=== PATIENT | male | born 1970 | race Two or more races ===

== ENCOUNTER 2020-09-15 15:15 | Inpatient (IN) | payer OTHER, MEDICARE, MEDICAID, SELFPAY ==
[2020-09-15] VITALS (19 sets, daily range): BP systolic 135–236; BP diastolic 105–172; PULSE 87–116; RESP 12–18; TEMP 36.6–36.9; O2SAT 95–97; BMI 27.1; BMI 26.6
--- NOTE | ~2020-09-15 | CT_ITS ---
EXAMINATION: CT HEAD WITHOUT CONTRAST (STROKE PROTOCOL) CLINICAL INFORMATION: Stroke protocol. Slurred speech. Left facial droop. COMPARISON: None TECHNIQUE: Contiguous axial imaging was performed from the skull base to vertex without intravenous administration of contrast. This CT examination was performed using dose optimization techniques as appropriate, variously including the following: *Automated exposure control *Adjustment of mA and/or kV according to patient size (this includes techniques or standardized protocols for targeted exams where dose is matched to indication/reason for exam; i.e. extremities or head) *Use of iterative reconstruction technique DLP: 668 mGy-cm FINDINGS: There is no evidence of an extra-axial collection. There is no evidence of intra-axial or extra-axial hemorrhage. There is a right occipital bone craniotomy. There is surgical defect from a reta hole in the right frontal bone. There are old infarcts versus areas of encephalomalacia seen in the bilateral cerebellum, right greater than left. There is extensive periventricular white matter disease. There are old left thalamic and basal ganglia lacunar infarcts. These findings are unchanged from February 2019. No mass, mass effect or acute infarct is seen. No skull fracture is seen. Visualized paranasal sinuses, mastoid air cells and middle ears are clear. CT/CT head for stroke IMPRESSION: No acute findings. Postoperative change to the right occipital bone, encephalomalacia or infarct of the bilateral cerebellum, right greater than left, old left basal ganglia and thalamic lacunar infarcts and extensive periventricular white matter disease similar to February 2019. This critical result was discussed with Dr. Norris at 1549 hours on 09/15/2020. It was ascertained that the content and urgency of the report was understood at the time of direct communication.
--- NOTE | ~2020-09-15 | CT_ITS ---
EXAMINATION: CT ANGIOGRAM NECK CLINICAL INFORMATION: Slurred speech. Left facial droop. COMPARISON: CT head 09/15/2020. MRI brain 03/11/2019. TECHNIQUE: The degree of stenosis determined by NASCET criteria. This CT examination was performed using dose optimization techniques as appropriate, variously including the following: *Automated exposure control *Adjustment of mA and/or kV according to patient size (this includes techniques or standardized protocols for targeted exams where dose is matched to indication/reason for exam; i.e. extremities or head) *Use of iterative reconstruction technique DLP: 1498 mGy-cm FINDINGS: Delayed contrast-enhanced CT the head: Right inferior cerebellar encephalomalacia and adjacent suboccipital craniotomy are noted. Encephalomalacia of the left inferior cerebellar hemisphere is visualized. No intracranial hemorrhage, tumors or acute appearing infarcts are visualized. Normal intraluminal opacification is noted in the major intracranial dural sinuses no abnormal enhancement the brain is noted. The orbits and globes are normal in appearance. A right frontal reta hole is visualized. Focal hypodensity is present in the left external capsule may represent chronic ischemic changes. Moderate subcortical and periventricular white matter patchy hypodensities are visualized. CT angiography neck: Conventional branching anatomy of the great vessels in relation to the transverse aorta is noted. Mild scattered nonocclusive calcific atherosclerotic plaques are present in the transverse aorta. The carotid bulbs are patent. The left vertebral artery is dominant. No cervical vertebral or carotid artery system occlusions or dissections are visualized. CT angiography head: Nonocclusive segmental calcific atherosclerosis is present in the cavernous portions of the internal carotid arteries. The A1 segment of the left anterior cerebral artery is absent. A prominent anterior communicating artery is noted in association with a prominent A1 segment of the right anterior cerebral artery. origin of the left posterior cerebral artery is visualized. No intracranial occlusions, stenoses or aneurysms are noted. Visualized lung apices are clear. The thyroid is normal in appearance. No cervical lymphadenopathy identified. CT/CT angio head neck IMPRESSION: 1. No acute abnormalities identified. 2. Negative CT angiography of the head and neck. Patent carotid bulbs. No large vessel intracranial occlusions. 3. Chronic encephalomalacia of the inferior right cerebellar hemisphere status post right suboccipital craniotomy. 4. Chronic encephalomalacia of the left inferior cerebellar hemisphere. 5. Chronic small vessel ischemic changes.
--- NOTE | ~2020-09-15 | XR_ITS ---
EXAMINATION: XR CHEST CLINICAL INFORMATION: Stroke COMPARISON: 03/11/2019 TECHNIQUE: Frontal view of the chest was obtained. FINDINGS: Wires overlie the chest. No significant abnormality is noted involving the heart, lungs, mediastinum, bony thorax or soft tissues. XR/XR chest 1V IMPRESSION: No acute cardiac pulmonary process.
--- NOTE | 2020-09-15 15:24 | ECG_ITS ---
Test Reason : STROKE Blood Pressure : / mmHG Vent. Rate : 105 BPM Atrial Rate : 105 BPM P-R Int : 168 ms QRS Dur : 082 ms QT Int : 336 ms P-R-T Axes : 036 -21 -02 degrees QTc Int : 444 ms Sinus tachycardia Voltage criteria for left ventricular hypertrophy Nonspecific ST and T wave abnormality Abnormal ECG When compared with ECG of 11-MAR-2019 10:06, No significant change was found Referred By: Abbie Norris Electronically Signed By:MARGARITA MCCONNELL MD
--- NOTE | 2020-09-15 15:28 | ED_ITS ---
HPI - Neuro Symptoms/Deficit General Chief Complaint: Neuro Symptoms/Deficit Stated Complaint: stroke? Time Seen by Provider: 09/15/20 15:24 Source: patient and family (Spouse) Mode of arrival: ambulatory Limitations: no limitations History of Present Illness HPI Narrative: 50-year-old male with history of hypertension, CVA, globose anti coagulant disorder, hypertensive emergency, cardiac myopathy. Patient 20 minutes ago started to have slurred speech and left facial droop, otherwise no other symptoms, patient also felt dizzy, because patient's history was significant for CVA patient decided to come to the hospital, patient reportedly has is on blood thinner. Patient is known to have history of high blood pressure patient is taking lisinopril for high blood pressure (patient stated that he is not compliant with his medication and he did not take his medicine for the past few days). Patient noted to be very hypertensive when he came to the hospital. Related Data Previous Rx's Medication Instructions Recorded aspirin 81 mg tablet,delayed 81 mg PO DAILY 90 Days #90 tab 05/16/20 release Allergies Allergy/AdvReac Type Severity Reaction Status Date / Time Shellfish Allergy Mild HIVES Uncoded 02/02/20 14:57 seafood Allergy Unknown hives Uncoded 07/20/19 00:00 Review of Systems Review of Systems: All other systems are reviewed and are negative Constitutional: Reports as per HPI and Reports no additional constitutional complaints Eyes: Reports as per HPI and Reports no additional eye complaints Reports system reviewed and no additional complaints, except as documented Cardiovascular: Reports as per HPI and Reports no additional cardiovascular complaints Respiratory: Reports as per HPI and Reports no additional respiratory complaints Gastrointestinal: Reports as per HPI and Reports no additional gastrointestinal complaints Genitourinary: Reports no additional female genitourinary complaints Musculoskeletal: Reports no additional musculoskeletal complaints Skin/Breast: Reports system reviewed and no additional complaints, except as docu Psychiatric: Reports no additional psychiatric complaints Endocrine: Reports no additional endocrine complaints Hematologic/Lymphatic: Reports no additional hematologic/lymphatic complaints Allergic/Immunologic: Reports no additional allergic/immunologic complaints Reports system reviewed and no additional complaints, except as documented and Reports Abnormal speech present [facility] Past Medical History Medical History Anxiety and depression Cardiomyopathy GERD (gastroesophageal reflux disease) History of CVA (cerebrovascular accident) Hypercholesterolemia Hypertension Insomnia Lupus anticoagulant positive Right renal stone Vitamin D deficiency Social History Social History Currently Displaying Signs/Symptoms of Drug Intoxication Withdrawal: No Advance Directives: No Advance Directives Information Provided: Yes Do you have thoughts of harming others: None Do you have a plan to hurt others: No Plan Physical Exam Vital Signs: Vital Signs: Last Vital Signs Temp 97.2 F 09/16/20 01:05 Pulse 80 09/16/20 06:01 Resp 14 09/16/20 06:01 BP 122/93 H 09/16/20 06:01 Pulse Ox 94 09/16/20 06:01 Body Mass Index 26.6 Vital signs have been reviewed as appeared to be correct. Blood pressure elevated. Heart rate normal. Respiration rate normal. Temperature normal. Oxygen saturation normal. Appearance: Alert. Oriented X3. No acute distress. Head: Normal external exam. Normocephalic. Atraumatic. No [place] signs noted. No raccoon eyes noted Eyes: PERRLA. EOMI. Conjunctiva and sclera normal. Eyelids normal. ENT: TM's Normal. Pharynx normal. Uvula midline. Moist mucous membranes. No trismus noted. No drooling noted. No muffled voice noted. Neck: Normal inspection. Neck supple. FROM. No adenopathy. Thyroid Normal. No meningeal signs. No neck mass noted. CVS: Normal heart rate and rhythm. Heart sound normal. No murmurs noted. Pulses normal throughout. Respiratory: No respiratory distress. Painless inspiration. Breath sounds normal. No wheezes/rales/rhonchi noted. Chest nontender. No accessory muscle usage noted or decreased air movement noted. Abdomen: Soft and nontender. Bowel sounds normal in all 4 quadrants. No distention noted. No organomegaly noted. No visible injury noted. Back: No CVA tenderness. Full range of motion noted. Skin: Skin warm and dry. Normal skin color. Normal skin turgor. No rashes/lesions/lacerations noted. Extremities: No lower extremity edema. Extremities exhibit normal range of motion. Extremities nontender. Neuro: Oriented X 3. Please see NIH stroke score. Course Course Course Narrative: Assessment and plan. 50-year-old male came in with left facial droop/slurred speech initially patient had NIH stroke score of 2, initially also noted to have very high blood pressure, patient was given labetalol IV blood pressure is gradually and slowly improving, patient's symptoms also is improving slowly, patient had a CT/CT angio of the head and neck which is unremarkable, case discussed with Dr. Braxton from Neurology recommended to more blood pressure management, keep on antiplatelets, admit for serial neuro exam. Patient is not candidate for tPA for severe uncontrolled hypertension, spontaneous improvement of patient's symptoms, and low NIH stroke score. Reevaluation(s) Reevaluation #1: Patient was re-evaluated, slurred speech is improving, left facial droop is improving, blood pressure is gradually and slowly improving, case discussed with Dr. monk conservation coordinator, will give 1 dose of lisinopril 20 mg p.o. and slowly monitoring his blood pressure. Recommended against giving the patient an IV antihypertensive drip. MDM - Neuro Symptoms/Deficit Lab Data Result diagrams: 09/16/20 05:10 09/16/20 05:10 Labs: Lab Results 09/15/20 09/15/20 09/15/20 Range/Units 15:26 15:27 16:00 WBC 8.7 (4.8-10.8) X10*3/uL RBC 5.68 (4.60-5.80) X10*6/uL Hgb 17.1 (14.0-18.0) g/dl Hct 49.7 (42-52) % MCV 87.5 (80-98) fL MCH 30.1 (27.0-33.0) pg MCHC 34.4 (31.0-36.0) g/dl RDW 12.2 (11.0-16.0) % Plt Count 329 (160-400) X10*3/uL MPV 9.3 L (9.4-12.4) fL Immature Gran % (Auto) 0.3 (0.0-0.4) % Neut % (Auto) 64.5 (45-73) % Lymph % (Auto) 24.0 (20-40) % [place] % (Auto) 8.3 (2-11) % Eos % (Auto) 2.3 (0-4) % Baso % (Auto) 0.6 (0-2) % Lymph # (Auto) 2.1 (1.2-4.9) X10*3/uL [place] # (Auto) 0.7 (0.1-1.2) X10*3/uL Eos # (Auto) 0.2 (0.0-0.4) X10*3/uL Baso # (Auto) 0.1 (0.0-0.2) X10*3/uL Abs Immat Gran (auto) 0.03 (0.00-0.03) X10*3/uL Absolute Neuts (auto) 5.6 (2.0-8.3) X10*3/uL Absolute Nucleated RBC 0.000 (0.0-0.012) X10*3/uL Nucleated RBC % (auto) 0.0 (0.0-0.2) /100WBC PT (10.8-13.0) SEC Whole Blood PT 13.6 H (11.1-13.5) sec INR (0.9-1.1) Whole Blood INR 1.1 (0.9-1.1) APTT (24.1-38.0) SEC Sodium (135-145) mmol/L Potassium (3.3-5.1) mmol/L Chloride (96-108) mmol/L Carbon Dioxide (22-29) mmol/L Anion Gap (12-20) BUN (9-16) mg/dL Creatinine (0.5-1.4) mg/dL Estim Creat Clear Calc Estimated GFR POC Glucose 100 (60-115) mg/dL Random Glucose (60-115) mg/dL Calcium (8.4-10.2) mg/dL Total Creatine Kinase (38-174) U/L Troponin I High Sens (<3.5-35.0) ng/L 09/15/20 09/15/20 09/15/20 Range/Units 16:00 16:00 16:00 WBC (4.8-10.8) X10*3/uL RBC (4.60-5.80) X10*6/uL Hgb (14.0-18.0) g/dl Hct (42-52) % MCV (80-98) fL MCH (27.0-33.0) pg MCHC (31.0-36.0) g/dl RDW (11.0-16.0) % Plt Count (160-400) X10*3/uL MPV (9.4-12.4) fL Immature Gran % (Auto) (0.0-0.4) % Neut % (Auto) (45-73) % Lymph % (Auto) (20-40) % [place] % (Auto) (2-11) % Eos % (Auto) (0-4) % Baso % (Auto) (0-2) % Lymph # (Auto) (1.2-4.9) X10*3/uL [place] # (Auto) (0.1-1.2) X10*3/uL Eos # (Auto) (0.0-0.4) X10*3/uL Baso # (Auto) (0.0-0.2) X10*3/uL Abs Immat Gran (auto) (0.00-0.03) X10*3/uL Absolute Neuts (auto) (2.0-8.3) X10*3/uL Absolute Nucleated RBC (0.0-0.012) X10*3/uL Nucleated RBC % (auto) (0.0-0.2) /100WBC PT 12.1 (10.8-13.0) SEC Whole Blood PT (11.1-13.5) sec INR 1.0 (0.9-1.1) Whole Blood INR (0.9-1.1) APTT 33.7 (24.1-38.0) SEC Sodium 143 (135-145) mmol/L Potassium 3.6 (3.3-5.1) mmol/L Chloride 102 (96-108) mmol/L Carbon Dioxide 26 (22-29) mmol/L Anion Gap 19 (12-20) BUN 22 H (9-16) mg/dL Creatinine 1.56 H (0.5-1.4) mg/dL Estim Creat Clear Calc 48.7 Estimated GFR 47 POC Glucose (60-115) mg/dL Random Glucose 97 (60-115) mg/dL Calcium 9.4 (8.4-10.2) mg/dL Total Creatine Kinase 157 (38-174) U/L Troponin I High Sens 13.2 (<3.5-35.0) ng/L Imaging Data Head CT: Radiologist's impression: No acute findings. Postoperative change to the right occipital bone, encephalomalacia or infarct of the bilateral cerebellum, right greater than left, old left basal ganglia and thalamic lacunar infarcts and extensive periventricular white matter disease similar to February 2019. CT angio head and neck: Radiologist's impression: 1. No acute abnormalities identified. 2. Negative CT angiography of the head and neck. Patent carotid bulbs. No large vessel intracranial occlusions. 3. Chronic encephalomalacia of the inferior right cerebellar hemisphere status post right suboccipital craniotomy. 4. Chronic encephalomalacia of the left inferior cerebellar hemisphere. 5. Chronic small vessel ischemic changes. ECG Data Interpretation: Sinus tachycardia at 1 1 5 beats per minutes, LVH, left axis deviation, normal intervals, nonspecific ST-T changes diffusely. NIH Stroke Scale Level of Consciousness: Alert Level of Consciousness Questions: Answers both questions correctly Level of Consciousness Commands: Performs both tasks correctly Best Gaze: Normal Visual: No visual loss Facial Palsy: Minor paralyis Motor Arm (Right): No drift Motor Arm (Left): No drift Motor Leg (Right): No drift Motor Leg (Left): No drift Limb Ataxia: Absent Sensory: Normal Best Language: Mild to moderate aphasia Dysarthia: Normal Extinction and Inattention: No abnormality Score: 2 Critical Care Time Critical Care Time Total Critical Care Time: 60 Attestation: I spent 60 minutes providing critical care service to the patient, this including time spent at the bedside to evaluate the patient, reassess the patient, monitoring vital signs, review labs, and radiographic studies, counseling the patient/family, discussing the case with consultants, disposition the patient. Discharge Plan Discharge Clinical Impression: Hypertension, Hypertensive emergency Stroke Qualifiers: CVA mechanism: unspecified Qualified Code(s): I63.9 - Cerebral infarction, unspecified Patient Disposition: Admitted As Inpatient Interventions: Admission Worksheet (ED) Last Done: 09/15/20 20:22 Discharge Date/Time: 09/15/20 20:10
[2020-09-15 15:31] LABS: Glucose, Whole Blood 100 mg/dL (60-115)
[2020-09-15 15:31] LABS: Prothrombin Time Whole Bld POC 13.6 sec (11.1-13.5); ~PT, ~INR - Anti Coag Clinic 1.1 (0.9-1.1)
[2020-09-15] MEDS: iohexoL 350 MG/ML 100 ML INFUS..BTL IV (15:58)
[2020-09-15] MEDS: Labetalol HCL 100 MG/20 ML VIAL 20 MG IVPUSH (15:59)
[2020-09-15 16:03] LABS: MANUAL DIFF FLAG NO
[2020-09-15 16:07] LABS: Basophils Absolute Auto 0.1 X10*3/uL (0.0-0.2); Basophils Percent Auto 0.6 % (0-2); Eosinophils Absolute Auto 0.2 X10*3/uL (0.0-0.4); Eosinophils Percent Auto 2.3 % (0-4); Hematocrit 49.7 % (42-52); Hemoglobin 17.1 g/dl (14.0-18.0); Imm Gran Abs Auto 0.03 X10*3/uL (0.00-0.03); Imm Gran Pct Auto 0.3 % (0.0-0.4); Lymphocytes Absolute Auto 2.1 X10*3/uL (1.2-4.9); Mean Corpuscular HGB Conc 34.4 g/dl (31.0-36.0); Mean Corpuscular Hemoglobin 30.1 pg (27.0-33.0); Mean Corpuscular Volume 87.5 fL (80-98); Mean Platelet Volume 9.3 fL (9.4-12.4); Monocytes Absolute Auto 0.7 X10*3/uL (0.1-1.2); Monocytes Percent Auto 8.3 % (2-11); Neutrophils Absolute Auto 5.6 X10*3/uL (2.0-8.3); Neutrophils Percent Auto 64.5 % (45-73); Platelet Count 329 X10*3/uL (160-400); Red Blood Count 5.68 X10*6/uL (4.60-5.80); Red Cell Distribution Width 12.2 % (11.0-16.0); White Blood Count 8.7 X10*3/uL (4.8-10.8)
--- NOTE | 2020-09-15 16:08 | PC.NURSE ---
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 PT REPORTS HX MULTIPLE CVA'S, STS HAS BEEN NON-COMPLIANT W/ MEDICATIONS. DURING PRIMARY EVAL PT SPEECH CLEAR, PT REPORTS HE FEELS HIS SX IMPROVING QUICKLY. MINOR L SIDED FACIAL DROOP NOTED, NO OTHER NEURO DEFICITS. PT HYPERTENSIVE, 240'S/150'S, STS HAS NOT BEEN TAKING HTN MEDS. NSR/ST ON TELE. IV ESTABLISHED, LABS DRAWN, PT MEDICATED FOR BP PER EMAR. AFTER RETURNING FROM CT PT REPORTS FEELING MARKEDLY BETTER. DR JACOB AT BEDSIDE DISCUSSING PLAN OF CARE WITH PATIENT AND SPOUSE, PT AWARE/AGREEABLE TO PLAN OF CARE.
[2020-09-15 16:18] LABS: Prothrombin Time 12.1 SEC (10.8-13.0)
[2020-09-15 16:20] LABS: Partial Thromboplastin Time 33.7 SEC (24.1-38.0)
[2020-09-15 16:37] LABS: Anion Gap 19 (12-20); Blood Urea Nitrogen 22 mg/dL (9-16); Calcium 9.4 mg/dL (8.4-10.2); Carbon Dioxide 26 mmol/L (22-29); Chloride 102 mmol/L (96-108); Creatinine Clr Calc Pharmacy 48.7; Estimated Glomerular Filt Rate 47; Glucose Random 97 mg/dL (60-115); Potassium 3.6 mmol/L (3.3-5.1); Sodium 143 mmol/L (135-145)
[2020-09-15 16:44] LABS: Troponin-I High Sensitivity 13.2 ng/L (<3.5-35.0)
[2020-09-15] MEDS: lisinopriL 20 MG TABLET PO (16:54)
--- NOTE | 2020-09-15 18:17 | PM.EVENT ---
Event Note Date of Service: 09/16/20 Event Note: Dr. Norris called me from the ED about Mr. Donaldson who presented with hypertensive crisis with stroke-like symptoms. This is a remote note. The patient is a 50-year-old male with history of hypertension w prior episode of hypertensive emergency, CVA, Lupus anticoagulant disorder, cardiomyopathy. At home he is supposed to be on Lisinopril 40 mg daily, along with ASA and Plavix. But he hasn?t taken his meds for the past few days. 20 minutes prior to arrival in the ED this afternoon, he started to have slurred speech, left facial droop, and dizziness. Transported by car to the ED. According to Dr. Norris, initial BP was about 260/160. Per [employer], BP was 236/172. HR 116. The patient was A&O, in NAD. Breathing easy, Sat 97% on room air. Neuro eval showed minor left facial droop, and minor slurred speech, both of which the patient said were improved. No peripheral motor deficits. He was given Labetolol 20mg IV and sent for CT, which showed encephalomalacia or infarct of the bilateral cerebellum, right greater than left, old left basal ganglia and thalamic lacunar infarcts, and extensive periventricular white matter disease, all similar to February 2019. Dr. Braxton was consulted, the patient was not a candidate for TPA (I agree). According to Dr. Norris, the patient?s symptoms are improving in the ED. CTA also negative. At 1642 when I was called, the patient?s BP was down to 193/135, with HR down to 88. I recommended giving the patient 20 mg Lisinopril immediately, and recommended against further intravenous antihypertensives at that time. LABS: BUN/creat are 22/1.5. Baseline may be about 1.3. IMPRESSION: 1. I?m guessing that the patient has at least moderately severe HTN at baseline. 2. Medication noncompliance. 3. Hypertensive crisis with neurologic symptoms. When this is a stroke, TIA, or hypertensive encephalopathy I cannot tell at this time. 4. VARGAS, presumably 2? hypertensive crisis. Could be somewhat hypovolemic (Hb is 17). For patients with a hypertensive emergency, the goal should be about a 20% reduction in mean arterial pressure during the first 60 minutes of therapy. That has been accomplished nicely, and the patient is already improved, per Dr. Norris?s report to me. His BP should be checked q30 min. I would give him an additional 20 mg Lisinopril, oral labetolol, or IV labetolol over the next hour or two, depending on how he does. I?m expecting that he will not need that much in the way of intravenous therapy, but we?ll see. I?ve written him for admission to the ICU for further monitoring and mx. ADDENDUM: Spoke with the patient?s nurse at 1835. He's still in the ED. Last BP is 160?s/125. The patient?s facial droop and slurred speech have completely resolved. Waiting for transfer to the ICU. Time: 60 min ([id number])
[2020-09-15 18:27] LABS: Stroke Lab Use COMPLETE
[2020-09-15 19:58] LABS: COVID-19 Test Negative (Negative)
[2020-09-15] MEDS: Metoprolol Tartrate 25 MG TABLET PO (21:17)
--- NOTE | 2020-09-15 23:37 | PC.NURSE ---
pt arrived from ed via stretcher with senior underwriter. pt is awake/polite. sensorium is intact. speech is clear and well articulated. facial expressions symmetrical. hand grasps equal firm. gagnon in a purposeful fashion with good rom and strength. pt states that he has had several cvas in the past the big one was in 2006 . pt experienced neurological deficit in 2006 and underwent emergent craniotomy for the release of intracranial pressure. pt underwent extensive physical rehab at [facility]. according to pt and pt has experienced several smaller cvas since then. pt states that he should be taking 4 medications for htn and blood thinner but has elected to not take prescribed medications. 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 pts is at bedside her name is chris she can be reached at [phone]. skin surfaces intact. resp effort is regular unlabored. lungs cta. heart s1s2 +s4. ecg displays sr. sbp 160-170 mmhg. dsp 110-120 mmhg. abdomen benign.
[2020-09-16] VITALS (19 sets, daily range): BP systolic 112–182; BP diastolic 72–115; PULSE 63–105; RESP 10–20; TEMP 36.2–37.1; O2SAT 94–100; BMI 27.4
--- NOTE | 2020-09-16 00:14 | PM.CCHP ---
History of Present Illness Date of Service: 09/15/20 Chief Complaint: Hypertensive emergency/stroke-like symptoms HPI: 50-year-old male with underlying history of multiple strokes, hypertension, hypercholesteremia, GERD, blood clots (unknown specifics0 anxiety and depression and medical noncompliance was not taking any of his medications for the past 8-9 months. Patient presented to the emergency room at 3:24 p.m. after developing symptoms 20 minutes prior to arrival consistent with slurred speech and left facial droop, reported dizziness, even though he is supposed to be on a blood thinner, it turns out he is not taking it. On arrival, patient was noted to have a blood pressure of 236/172 with otherwise normal vital signs. Neurological exam revealed an NIH of 2. Patient has been given IV labetalol with good improvement of the blood pressure as well as facial droop and slurred speech. Patient underwent a stroke survey with head CT which was negative for ischemic or hemorrhagic stroke. CT angiogram of the head and neck revealed no abnormalities. Patient was found not to be a candidate for tPA, was admitted to the ICU for monitoring and blood pressure control, neuro checks. Covid 19. They remain to be, the patient has no complaints, he admits to had been noncompliant with his medications not for a few days or weeks but rather approximately 8-9 months that he has not taking any of his medications, currently he is concerned about not being able to sleep, states that he gets anxious every now and then but he is not anxious at this point. Currently denies headache, double or blurry vision, trouble speaking or thinking, numbness of the upper, lower extremities or any type of weakness. ROS: Denies headache, no visual changes, lightheadedness or dizziness, no history of seizures; no history of eye or ear problems, no sore throat, cough or sputum production, denies shortness of breath, denies chest pain, palpitations, no coronary disease, pulmonary disease, no hemoptysis, denies any melena, hematochezia, liver or kidney problems, no dysuria, hematuria, no leg swelling. Denies depression, admits to intermittent anxiety and insomnia. She has no travel and has not been contact with anybody with COVID. All other review of systems negative. Past Medical History: As above Past Surgical History: Right suboccipital craniotomy Family history: Noncontributory Social History: Lives at home with his , does not use any assistive devices. Has a 10 pack-year history of tobacco consumption, quit about 20 years ago. Drinks social alcohol, denies drugs. He admits not being compliant with his medications for the past 8-9 months. CODE STATUS: Full code Allergies: Shellfish and seafood (hives, no known drug allergies Home Medications: Unknown; goes to [facility] pharmacy. PHYSICAL EXAM: VS: 160/126; 95; 16; 98 F; 96% RA ?General: Alert oriented x3 no acute distress. Speaking full sentences. Speech is well articulated, thought process is coherent. Following all commands. No facial drooping. No slurred speech. ?Skin: Intact, no lesions, edema, erythema, clubbing or cyanosis. No ulcers. ?HEENT: Head is normocephalic, atraumatic, pupils equal round reactive to light accommodation bilaterally. Extraocular movements appear intact. Buccal mucosa is moist, Neck is supple without lymphadenopathy. ?Cardiac: Clear S1-S2, no murmurs rubs or gallops. ?Pulmonary: Clear to auscultation, no wheezes, rales or rhonchi. ?Abdomen: Protuberant, positive bowel sounds in all 4 quadrants. Soft, nontender, no rebound or guarding. ?Musculoskeletal: Moving all 4 extremities upon request a major joints, there is no crepitus or tenderness. The strength is 5/5 bilaterally and throughout all 4 extremities. There is no leg edema , no calf tenderness , no leg asymmetry. Gait not assessed at this point. ?Neurologic: As above, cranial nerves 2-12 are grossly intact. No focal deficits noted. Vascular: 2+ pulses upper and lower extremities distally. SIGNIFICANT LABORATORY DATA: As above REVIEW OF IMAGES: HEAD CT IMPRESSION: No acute findings. Postoperative change to the right occipital bone, encephalomalacia or infarct of the bilateral cerebellum, right greater than left, old left basal ganglia and thalamic lacunar infarcts and extensive periventricular white matter disease similar to February 2019. This critical result was discussed with Dr. Norris at 1549 hours on 09/15/2020. It was ascertained that the content and urgency of the report was understood at the time of direct communication. CXR IMPRESSION: No acute cardiac pulmonary process. CT Angio head and neck IMPRESSION: 1. No acute abnormalities identified. 2. Negative CT angiography of the head and neck. Patent carotid bulbs. No large vessel intracranial occlusions. 3. Chronic encephalomalacia of the inferior right cerebellar hemisphere status post right suboccipital craniotomy. 4. Chronic encephalomalacia of the left inferior cerebellar hemisphere. 5. Chronic small vessel ischemic changes. EKG REVIEW: Sinus tachycardia ventricular rate 105 beats per minute. No ST elevations, no depressions. QTC 444. No significant change in comparison to EKG from February 2019. ASSESSMENT AND PLAN: 1. Hypertensive emergency 2. Resolve slurred speech and facial drooping due to 1? TIA 3. Medical noncompliance 4. Acute kidney injury 5. Anxiety 6. Insomnia 7. Hx of Strokes and Coagulopathy NOS Admit to ICU, monitor vital signs, I's and O's, blood pressure has already been reduced by 25%, will continue to monitor and administer p.o. medications, I will hold off on lisinopril given the increase in his creatinine and the acute kidney injury, slight amount of IV fluids will be given and will place him on beta-whit given that his heart rate at times is also elevated at about 110-120 beats per minute. Swallow test has been done the patient passed, will place him on a statin aspirin just in case. Neurological consult to follow tomorrow morning and will determine if an MRI is needed. Will find out the patient's medications and resume them as needed. In regards to his anxiety this does not appear to be an issue at this point, will give him melatonin for his insomnia. GI PROPHYLAXIS: no need DVT PROPHYLAXIS: Heparin SubQ q 8h Critical care time used for critical evaluation of this patient, diagnosis, treatment and coordination of care, review her records and documentation TOTAL CRITICAL CARE TIME 90 MIN . Patient's care was discussed in detail with Dr. Choi. He is aware of all the above as well as the plan of care for this patient. [facility] Past Medical History Medical History Anxiety and depression Cardiomyopathy GERD (gastroesophageal reflux disease) History of CVA (cerebrovascular accident) Hypercholesterolemia Hypertension Insomnia Lupus anticoagulant positive Right renal stone Vitamin D deficiency Social History Social History Currently Displaying Signs/Symptoms of Drug Intoxication Withdrawal: No Advance Directives: No Advance Directives Information Provided: Yes Do you have thoughts of harming others: None Do you have a plan to hurt others: No Plan service: No Current occupational status: employed Meds Allergies Allergy/AdvReac Type Severity Reaction Status Date / Time Shellfish Allergy Mild HIVES Uncoded 02/02/20 14:57 seafood Allergy Unknown hives Uncoded 07/20/19 00:00 Active Medications: Current Medications Generic Name Dose Route Start Last Admin Trade Name Melvin PRN Reason Stop Dose Admin Lisinopril 5 mg 09/16/20 09:00 Lisinopril 5 Mg Tablet PO DAILY [facility] Protocol Melatonin 3 mg 09/15/20 22:45 09/15/20 23:03 Melatonin 3 Mg Tablet PO Not Given BEDTIME [facility] Metoprolol Tartrate 25 mg 09/15/20 21:00 09/15/20 21:17 Metoprolol Tartrate 25 Mg Tablet PO 25 mg Q12H [facility] Administration Protocol Home Medications Medication Instructions Recorded Confirmed Last Taken Type aspirin 81 mg PO DAILY 09/16/20 09/16/20 Unknown History atorvastatin 80 mg PO BEDTIME 09/16/20 09/16/20 Unknown History carvedilol 12.5 mg PO BID 09/16/20 09/16/20 Unknown History clopidogrel 75 mg PO DAILY 09/16/20 09/16/20 Unknown History donepezil 10 mg PO BEDTIME 09/16/20 09/16/20 Unknown History lisinopril 20 mg PO DAILY 09/16/20 09/16/20 Unknown History olanzapine 2.5 mg PO DAILY 09/16/20 09/16/20 Unknown History Physical Exam Vital Signs: Vital Signs: Last Vital Signs Temp 98 F 09/15/20 20:33 Pulse 72 09/16/20 00:11 Resp 14 09/16/20 00:11 BP 128/97 H 09/16/20 00:11 Pulse Ox 95 09/16/20 00:11 Body Mass Index 26.6 Results Labs CBC and Chem 7: 09/16/20 05:10 09/16/20 05:10 Labs: Laboratory Results - last 24 hr 09/15/20 09/15/20 09/15/20 15:26 15:27 16:00 MCV 87.5 MCH 30.1 MCHC 34.4 RDW 12.2 Plt Count 329 MPV 9.3 L Immature Gran % (Auto) 0.3 Neut % (Auto) 64.5 Lymph % (Auto) 24.0 Bacon % (Auto) 8.3 Eos % (Auto) 2.3 Baso % (Auto) 0.6 Lymph # (Auto) 2.1 Bacon # (Auto) 0.7 Eos # (Auto) 0.2 Baso # (Auto) 0.1 Abs Immat Gran (auto) 0.03 Absolute Neuts (auto) 5.6 Absolute Nucleated RBC 0.000 Nucleated RBC % (auto) 0.0 PT Whole Blood PT 13.6 H INR Whole Blood INR 1.1 APTT Anion Gap Estim Creat Clear Calc Estimated GFR POC Glucose 100 Random Glucose Calcium Total Creatine Kinase Troponin I High Sens COVID-19 (JASPREET) COVID-19 Clin Com 09/15/20 09/15/20 09/15/20 16:00 16:00 16:00 MCV MCH MCHC RDW Plt Count MPV Immature Gran % (Auto) Neut % (Auto) Lymph % (Auto) Bacon % (Auto) Eos % (Auto) Baso % (Auto) Lymph # (Auto) Bacon # (Auto) Eos # (Auto) Baso # (Auto) Abs Immat Gran (auto) Absolute Neuts (auto) Absolute Nucleated RBC Nucleated RBC % (auto) PT 12.1 Whole Blood PT INR 1.0 Whole Blood INR APTT 33.7 Anion Gap 19 Estim Creat Clear Calc 48.7 Estimated GFR 47 POC Glucose Random Glucose 97 Calcium 9.4 Total Creatine Kinase 157 Troponin I High Sens 13.2 COVID-19 (JASPREET) COVID-19 Clin Com 09/15/20 19:35 MCV MCH MCHC RDW Plt Count MPV Immature Gran % (Auto) Neut % (Auto) Lymph % (Auto) Bacon % (Auto) Eos % (Auto) Baso % (Auto) Lymph # (Auto) Bacon # (Auto) Eos # (Auto) Baso # (Auto) Abs Immat Gran (auto) Absolute Neuts (auto) Absolute Nucleated RBC Nucleated RBC % (auto) PT Whole Blood PT INR Whole Blood INR APTT Anion Gap Estim Creat Clear Calc Estimated GFR POC Glucose Random Glucose Calcium Total Creatine Kinase Troponin I High Sens COVID-19 (JASPREET) Negative COVID-19 Clin Com See Note Imaging Radiologist's Impressions: Impressions Head CT 09/15/20 15:24 IMPRESSION: No acute findings. Postoperative change to the right occipital bone, encephalomalacia or infarct of the bilateral cerebellum, right greater than left, old left basal ganglia and thalamic lacunar infarcts and extensive periventricular white matter disease similar to February 2019. This critical result was discussed with Dr. Norris at 1549 hours on 09/15/2020. It was ascertained that the content and urgency of the report was understood at the time of direct communication. Chest X-Ray 09/15/20 15:25 IMPRESSION: No acute cardiac pulmonary process. Head/Neck CTA 09/15/20 15:36
[2020-09-16] MEDS: 0.9 % Sodium Chloride 500 ML 100 ML IVCONT (01:33)
[2020-09-16] MEDS: Atorvastatin Calcium 80 MG TABLET PO ×2 (01:34→20:48)
[2020-09-16 05:35] LABS: MANUAL DIFF FLAG NO
--- NOTE | 2020-09-16 05:38 | PC.NURSE ---
pt exited bed to use urinal and knocked over rosie cotto on night stand. pt is awake/sensorium is intact. although, pt states he is having difficulty finding words. pt returned to bed. gait is steady. speech is clear and well articulated. facial expressions symmetrical. tongue midline. hand grasps equal and strong. gagnon purposefully with good rom. macey bloom summoned to bedside to conduct neuro evaluation d/t pts c/o of difficulty finding words. pt continues to be luccid and carry out conversation without delay or deficit being noted. second iv established right wrist. no focal deficts. after several minutes pt states that he feels better and is no longer having difficulty with finding words and talking. b/p 150/100. ecg displays sr. resp effort is regular unlabored. pt voided 500 ml of yellow urine. urine dinero sent. pt settled in and watching tv.
[2020-09-16 05:39] LABS: Basophils Absolute Auto 0.1 X10*3/uL (0.0-0.2); Basophils Percent Auto 0.6 % (0-2); Eosinophils Absolute Auto 0.3 X10*3/uL (0.0-0.4); Hematocrit 46.7 % (42-52); Hemoglobin 15.9 g/dl (14.0-18.0); Imm Gran Abs Auto 0.02 X10*3/uL (0.00-0.03); Imm Gran Pct Auto 0.2 % (0.0-0.4); Lymphocytes Absolute Auto 2.2 X10*3/uL (1.2-4.9); Lymphocytes Percent Auto 24.6 % (20-40); Mean Corpuscular Hemoglobin 29.9 pg (27.0-33.0); Mean Corpuscular Volume 87.8 fL (80-98); Mean Platelet Volume 9.3 fL (9.4-12.4); Monocytes Absolute Auto 0.7 X10*3/uL (0.1-1.2); Monocytes Percent Auto 8.2 % (2-11); Neutrophils Absolute Auto 5.7 X10*3/uL (2.0-8.3); Neutrophils Percent Auto 63.4 % (45-73); Platelet Count 323 X10*3/uL (160-400); Red Blood Count 5.32 X10*6/uL (4.60-5.80); Red Cell Distribution Width 12.4 % (11.0-16.0)
[2020-09-16] MEDS: Heparin Sodium,Porcine 5,000 UNIT/ML VIAL 5000 UNIT SUBCUT ×3 (05:52→20:48)
[2020-09-16 06:09] LABS: Amphetamine Screen Urine Not Detected (Not Detect); Barbiturates, Urine Not Detected (Not Detect); Benzodiazepines Screen Urine Not Detected (Not Detect); Cannabinoid Screen Urine Not Detected (Not Detect); Cocaine Screen Urine Not Detected (Not Detect); Opiate Screen Urine Not Detected (Not Detect); Phencyclidine Screen Urine Not Detected (Not Detect)
[2020-09-16 06:10] LABS: Alanine Aminotransferase 16 U/L (0-40); Albumin Level 4.1 g/dL (3.5-5.0); Alkaline Phosphatase 70 U/L (39-117); Anion Gap 14 (12-20); Aspartate Amino Transferase 14 U/L (5-37); Bilirubin Direct 0.3 mg/dL (0.0-0.5); Bilirubin Total 0.9 mg/dL (0.0-1.0); Blood Urea Nitrogen 23 mg/dL (9-16); Calcium 9.2 mg/dL (8.4-10.2); Carbon Dioxide 27 mmol/L (22-29); Chloride 102 mmol/L (96-108); Cholesterol 261 mg/dL; Estimated Glomerular Filt Rate 48; Glucose Random 110 mg/dL (60-115); HDL Cholesterol 45 mg/dL; LDL Cholesterol Calculated 184 mg/dl; Potassium 3.4 mmol/L (3.3-5.1); Sodium 140 mmol/L (135-145); Total Protein 7.2 g/dL (6.5-8.0); Triglycerides 163 mg/dL
--- NOTE | 2020-09-16 06:21 | P.PNCC_ITS ---
Subjective Subjective Date of Service: 09/16/20 Interval History: Patient was admitted last night to ICU due to hypertensive emergency. On arrival to the ER the patient's blood pressure was over 230 systolic, having left side facial droop and slurred speech, was treated with labetalol, stroke NIH score was 2, full stroke workup was done and CT head, CTA of head and neck were all negative. He was not a candidate for tPA. Neurology consult was done. The blood pressure had come down to less than 180 and his symptoms completely resolve. Overnight there was no events, the patient did admit to not having taken any of his medications for over 8 months. His laboratory was unremarkable with exception of creatinine of 1.5 which is unknown if it is his baseline. Small amount of IV fluids was given, SHAHANA-inhibitor was not given because of the creatinine. I did place him on low-dose beta-whit, start him on a statin, aspirin and placed a Neurology consult. Patient has underlying history of previous strokes, cardiomyopathy, hypertension, hypercholesteremia, GERD, anxiety, depression. He did ask me for medications to help him sleep, I suggested melatonin, he refused and asked for Ativan which I explained would not be given as this could cause mental status changes and we with unknown if this is from a ischemic, hemorrhagic stroke or the medication itself. Physical exam 122/93, 80, 14, 94% on room air. General: Alert oriented x3 no acute distress, no facial droop, speaking full sentences. He told the nurse he was having trouble speaking, I spoke to the patient in [place] in suddenly he started speaking back to me in Welsh perfectly well and without any pronunciation issues. Skin: Intact no lesions. No edema. Heart: Regular rate and rhythm no murmurs rubs gallops. Lungs: Clear to auscultation bilaterally Musculoskeletal: Full range of motion of 4 extremities, 5/5 strength bilaterally and throughout. Neurologic: Alert oriented x3, cranial nerves 2 through 12 grossly intact. Motor as above. Vascular: 2+ pulses upper lower extremities bilaterally and distally. No new images. Laboratories as below : remarkable for unchanged Cr 1.5 Assessment plan: 1. Hypertensive emergency resolved 2. Resolve slurred speech and facial drooping due to 1? TIA resolved 3. Medical noncompliance no meds 8 months 4. Acute on Chronic KD=======labs unchanged likely createnine 1.5 is his baseline 5. Anxiety========= no sx now 6. Insomnia======= melatonin refused 7. Hx of Strokes and Coagulopathy NOS Patient's blood pressure is now normal, no overnight issues. Patient is on aspirin, statin, Neurology consult was placed, they will decide if the patient requires an MRI, plus-minus echo and unlikely a ultrasound of the carotid since the CTA is negative. Gentle hydration. Patient will be transferred to the floor, case will be discussed with hospitalist [id number] am case was discussed with Dr. Pereira Case was discussed in detail with Dr. Choi. He is aware of all the above as well as the plan of care for this patient. Billing [id number] Physical Exam Vital Signs: Vital Signs: Last Vital Signs Temp 97.2 F 09/16/20 01:05 Pulse 80 09/16/20 06:01 Resp 14 09/16/20 06:01 BP 122/93 H 09/16/20 06:01 Pulse Ox 94 09/16/20 06:01 Body Mass Index 26.6 Objective Data Labs CBC & Chem 7: 09/16/20 05:10 09/16/20 05:10 Labs: Laboratory Results - last 24 hr 09/15/20 09/15/20 09/15/20 15:26 15:27 16:00 WBC 8.7 RBC 5.68 Hgb 17.1 Hct 49.7 MCV 87.5 MCH 30.1 MCHC 34.4 RDW 12.2 Plt Count 329 MPV 9.3 L Immature Gran % (Auto) 0.3 Neut % (Auto) 64.5 Lymph % (Auto) 24.0 [place] % (Auto) 8.3 Eos % (Auto) 2.3 Baso % (Auto) 0.6 Lymph # (Auto) 2.1 [place] # (Auto) 0.7 Eos # (Auto) 0.2 Baso # (Auto) 0.1 Abs Immat Gran (auto) 0.03 Absolute Neuts (auto) 5.6 Absolute Nucleated RBC 0.000 Nucleated RBC % (auto) 0.0 PT Whole Blood PT 13.6 H INR Whole Blood INR 1.1 APTT Sodium Potassium Chloride Carbon Dioxide Anion Gap BUN Creatinine Estim Creat Clear Calc Estimated GFR POC Glucose 100 Random Glucose Calcium Total Bilirubin Direct Bilirubin AST ALT Alkaline Phosphatase Total Creatine Kinase Troponin I High Sens Total Protein Albumin Triglycerides Cholesterol LDL Cholesterol, Calc HDL Cholesterol Urine Opiates Screen Ur Barbiturates Screen Ur Phencyclidine Scrn Ur Amphetamines Screen U Benzodiazepines Scrn Urine Cocaine Screen U Marijuana (THC) Screen COVID-19 (JASPREET) COVID-19 [facility] 09/15/20 09/15/20 09/15/20 16:00 16:00 16:00 WBC RBC Hgb Hct MCV MCH MCHC RDW Plt Count MPV Immature Gran % (Auto) Neut % (Auto) Lymph % (Auto) [place] % (Auto) Eos % (Auto) Baso % (Auto) Lymph # (Auto) [place] # (Auto) Eos # (Auto) Baso # (Auto) Abs Immat Gran (auto) Absolute Neuts (auto) Absolute Nucleated RBC Nucleated RBC % (auto) PT 12.1 Whole Blood PT INR 1.0 Whole Blood INR APTT 33.7 Sodium 143 Potassium 3.6 Chloride 102 Carbon Dioxide 26 Anion Gap 19 BUN 22 H Creatinine 1.56 H Estim Creat Clear Calc 48.7 Estimated GFR 47 POC Glucose Random Glucose 97 Calcium 9.4 Total Bilirubin Direct Bilirubin AST ALT Alkaline Phosphatase Total Creatine Kinase 157 Troponin I High Sens 13.2 Total Protein Albumin Triglycerides Cholesterol LDL Cholesterol, Calc HDL Cholesterol Urine Opiates Screen Ur Barbiturates Screen Ur Phencyclidine Scrn Ur Amphetamines Screen U Benzodiazepines Scrn Urine Cocaine Screen U Marijuana (THC) Screen COVID-19 (JASPREET) COVID-19 [facility] 09/15/20 09/16/20 09/16/20 19:35 05:10 05:10 WBC 9.0 RBC 5.32 Hgb 15.9 Hct 46.7 MCV 87.8 MCH 29.9 MCHC 34.0 RDW 12.4 Plt Count 323 MPV 9.3 L Immature Gran % (Auto) 0.2 Neut % (Auto) 63.4 Lymph % (Auto) 24.6 [place] % (Auto) 8.2 Eos % (Auto) 3.0 Baso % (Auto) 0.6 Lymph # (Auto) 2.2 [place] # (Auto) 0.7 Eos # (Auto) 0.3 Baso # (Auto) 0.1 Abs Immat Gran (auto) 0.02 Absolute Neuts (auto) 5.7 Absolute Nucleated RBC 0.000 Nucleated RBC % (auto) 0.0 PT Whole Blood PT INR Whole Blood INR APTT Sodium Potassium Chloride Carbon Dioxide Anion Gap BUN Creatinine Estim Creat Clear Calc Estimated GFR POC Glucose Random Glucose Calcium Total Bilirubin Direct Bilirubin AST ALT Alkaline Phosphatase Total Creatine Kinase Troponin I High Sens Total Protein Albumin Triglycerides Cholesterol LDL Cholesterol, Calc HDL Cholesterol Urine Opiates Screen Not Detected Ur Barbiturates Screen Not Detected Ur Phencyclidine Scrn Not Detected Ur Amphetamines Screen Not Detected U Benzodiazepines Scrn Not Detected Urine Cocaine Screen Not Detected U Marijuana (THC) Screen Not Detected COVID-19 (JASPREET) Negative COVID-19 [email or web address] Com See Note 09/16/20 05:10 WBC RBC Hgb Hct MCV MCH MCHC RDW Plt Count MPV Immature Gran % (Auto) Neut % (Auto) Lymph % (Auto) [place] % (Auto) Eos % (Auto) Baso % (Auto) Lymph # (Auto) [place] # (Auto) Eos # (Auto) Baso # (Auto) Abs Immat Gran (auto) Absolute Neuts (auto) Absolute Nucleated RBC Nucleated RBC % (auto) PT Whole Blood PT INR Whole Blood INR APTT Sodium 140 Potassium 3.4 Chloride 102 Carbon Dioxide 27 Anion Gap 14 BUN 23 H Creatinine 1.55 H Estim Creat Clear Calc 49.0 Estimated GFR 48 POC Glucose Random Glucose 110 Calcium 9.2 Total Bilirubin 0.9 Direct Bilirubin 0.3 AST 14 ALT 16 Alkaline Phosphatase 70 Total Creatine Kinase Troponin I High Sens Total Protein 7.2 Albumin 4.1 Triglycerides 163 Cholesterol 261 LDL Cholesterol, Calc 184 HDL Cholesterol 45 Urine Opiates Screen Ur Barbiturates Screen Ur Phencyclidine Scrn Ur Amphetamines Screen U Benzodiazepines Scrn Urine Cocaine Screen U Marijuana (THC) Screen COVID-19 (JASPREET) COVID-19 [email or web address] Com
--- NOTE | 2020-09-16 08:23 | PM.EVENT ---
Event Note Date of Service: 09/16/20 Event Note: Mr. Donaldson's BP this morning is 129/87, which, judging by his history and events over the last 24hrs, may be too low for him, at this time. Since he came into the hospital, all he's been given was Labetolol 20 mg IV and Lisinopril 20 mg in the ED, plus metoprolol 25 mg last night at 9pm. Diomedes Neal wrote for him to get metoprolol 25 mg bid. Judging by his BPs since admission, and his response to the meds listed above, that may be too high a dose, so I rewrote the order to 12.5 mg bid.
[2020-09-16] MEDS: Aspirin Enteric Coated 81 MG TABLET.DR PO (09:06)
[2020-09-16] MEDS: Metoprolol Tartrate 25 MG TABLET 12.5 MG PO ×2 (09:06→21:12)
--- NOTE | 2020-09-16 10:42 | MHC.CM.PN ---
pt lives c his in their home , he reports that he is independent in his care. he works a job and drives a car. pt denies the need for vna at dc. pt's can help him c any needs he may have at dc. this will include a ride home. dc plan is home no svcs. cm to cont. to follow.
--- NOTE | 2020-09-16 15:42 | PM.NEUROCN ---
History of Present Illness Data of Consult Service Date: 09/16/20 Primary Care Provider: Crystal Ellis MD HPI Reason for consult: Hypertensive emergency with transient speech problem and facial droop This is a 50-year-old man with uncontrolled hypertension recent stroke in the cerebellum away evacuation and decompression of the posterior fossa history of hypertension and depression anxiety has not been taking his blood pressure medications and came in with blood pressure was 265/170 slurring of speech some dysphagia and facial droop. CT scan on admission did not show any acute findings but confirmed the old cerebellar infarct on 1 side postop changes in the right cerebellum. CTA did not show any occlusive disease in the neck or head. His blood pressure is now under control and symptoms have resolved. His friend tells me that he is also having some memory issues. Review of Systems Eyes: Eyes: Reports no additional eye complaints ENT: Reports system reviewed and no additional complaints, except as documented and Reports Normal hearing present Cardiovascular: Cardiovascular: Reports no additional cardiovascular complaints Respiratory: Respiratory: Reports no additional respiratory complaints Gastrointestinal: Gastrointestinal: Reports no additional gastrointestinal complaints Genitourinary: Genitourinary: Reports no additional male genitourinary complaints Musculoskeletal: Musculoskeletal: Reports no additional musculoskeletal complaints Integumentary/Breasts: Skin/Breast: Reports system reviewed and no additional complaints, except as docu Neurologic: Reports as per HPI and Reports Normal hearing present Psychiatric: Psychiatric: Reports as per HPI Endocrine: Endocrine: Reports no additional endocrine complaints Hematologic/Lymphatic: Hematologic/Lymphatic: Reports no additional hematologic/lymphatic complaints Allergic/Immunologic: Allergic/Immunologic: Reports no additional allergic/immunologic complaints [facility] Past Medical History Medical History Anxiety and depression Cardiomyopathy GERD (gastroesophageal reflux disease) History of CVA (cerebrovascular accident) Hypercholesterolemia Hypertension Insomnia Lupus anticoagulant positive Right renal stone Vitamin D deficiency Social History Social History Currently Displaying Signs/Symptoms of Drug Intoxication Withdrawal: No Advance Directives: No Advance Directives Information Provided: Yes Do you have thoughts of harming others: None Do you have a plan to hurt others: No Plan service: No Current occupational status: employed Meds Allergies Allergy/AdvReac Type Severity Reaction Status Date / Time Shellfish Allergy Mild HIVES Uncoded 02/02/20 14:57 seafood Allergy Unknown hives Uncoded 07/20/19 00:00 Active Medications: Current Medications Generic Name Dose Route Start Last Admin Trade Name Melvin PRN Reason Stop Dose Admin Aspirin 81 mg 09/16/20 09:00 09/16/20 09:06 Aspirin Enteric Coated 81 Mg Tablet. PO 81 mg DAILY JASON Administration Atorvastatin Calcium 80 mg 09/16/20 00:45 09/16/20 01:34 Atorvastatin Calcium 80 Mg Tablet PO 80 mg BEDTIME JASON Administration Heparin Sodium (Porcine) 5,000 unit 09/16/20 06:00 09/16/20 15:13 Heparin Sodium,Porcine 5,000 Unit/Ml Vial SUBCUT 5,000 unit Q8H JASON Administration Melatonin 3 mg 09/15/20 22:45 09/15/20 23:03 Melatonin 3 Mg Tablet PO Not Given BEDTIME JASON Metoprolol Tartrate 12.5 mg 09/16/20 08:13 09/16/20 09:06 Metoprolol Tartrate 25 Mg Tablet PO 12.5 mg Q12H JASON Administration Protocol Home Medications Medication Instructions Recorded Confirmed Last Taken Type aspirin 81 mg PO DAILY 09/16/20 09/16/20 Unknown History atorvastatin 80 mg PO BEDTIME 09/16/20 09/16/20 Unknown History carvedilol 12.5 mg PO BID 09/16/20 09/16/20 Unknown History clopidogrel 75 mg PO DAILY 09/16/20 09/16/20 Unknown History donepezil 10 mg PO BEDTIME 09/16/20 09/16/20 Unknown History lisinopril 20 mg PO DAILY 09/16/20 09/16/20 Unknown History olanzapine 2.5 mg PO DAILY 09/16/20 09/16/20 Unknown History Physical Exam Vital Signs: Vital Signs: Last Vital Signs Temp 97.8 F 09/16/20 15:04 Pulse 99 09/16/20 15:04 Resp 18 09/16/20 15:04 BP 130/72 09/16/20 15:04 Pulse Ox 99 09/16/20 15:04 Body Mass Index 27.4 Const: General: cooperative, comfortable, no acute distress, well developed, alert and awake Nutritional Appearance: well nourished Orientation/consciousness: oriented to person, oriented to place and oriented to time Limitations: no limitations HENMT: Head: Yes normal to inspection, Yes normocephalic and Yes atraumatic Ears: hearing grossly normal bilaterally General nose exam: Normal external nose present Face and sinus: Yes normal facial exam Mouth: Normal oral and palatal mucosa present Eyes: General: appearance normal, both eyes and all related structures Visual Sneed: normal visual sneed by confrontation Alignment and Position: alignment normal Periorbital: periorbital findings normal Eyelids: Yes eyelids normal Conjunctivae: conjunctivae normal Sclerae: sclerae normal Corneas: corneas normal Pupils: Equal, round and reactive pupils present and Pupil accommodation reflex normal EOM: EOMs intact bilaterally Direct Ophthalmoscopy: normal light reflex Neck: Neck: Yes normal visual inspection, Yes full ROM and Yes no meningeal signs Thyroid: Thyroid normal Carotids: normal carotid upstroke and bounding pulses Chest: Chest palpation & inspection: normal inspection of the chest Resp: Effort & Inspection: normal respiratory effort Auscultation: clear to auscultation bilaterally Cardio: Rate: regular rate Rhythm: regular rhythm Heart sounds: S1 normal heart sound present and S2 normal heart sound present Peripheral pulses: Peripheral pulses 2+ throughout GI: Inspection: Yes normal to inspection Percussion: Yes normal to percussion Auscultation: normal bowel sounds Rectal Exam - Male: Yes deferred Back/Spine/Pelvis: Cervical Spine: normal cervical lordosis and cervical ROM normal Thoracic/Lumbar Spine: thoracic and lumbar spine normal to inspection Skin: General skin exam: no rashes or lesions noted Neuro: Other: Pre-existing facial asymmetry with slight contracture on the left side of the face. Minimal pronation drift of the right upper extremity. General: oriented to person, oriented to place, oriented to time, gait normal, tone normal, moves all extremities, Normal light touch and pain sensation, no meningeal signs, no focal motor deficits, CN's II-XI intact bilaterally, normal sensation to monofilament and deep tendon reflexes 2+ bilaterally Cranial nerves: Yes CN's II-XII intact bilaterally, Yes Equal, round and reactive pupils present, Yes Bilaterally intact EOM present, Yes Nystagmus not present, Yes Normal facial strength present, Yes Midline tongue present, Yes Normal gag reflex present, Yes Symmetric palate elevation present, Yes Normal hearing present and Yes Ability to bilaterally rotate head present Cognition (Neuro): normal cognition Speech: Other speech findings present (Neuro) Gait exam (Neuro): Normal gait present Motor exam (neuro): 5/5 motor strength present throughout, Pronator motor function not present, no tremor noted, no asterixis, Motor fasciculations not present, Normal motor muscle tone present throughout and Motor abnormalities not present Sensory Exam: Bilaterally intact graphesthesia Deep tendon reflexes (DTR's): Right triceps reflex intensity grade: 2+, Left triceps reflex intensity grade: 2+, Rt Biceps (C5, C6): 2+, Left biceps reflex intensity grade: 2+, Right brachioradialis reflex intensity grade: 2+, Left brachioradialis reflex intensity grade: 2+, Right patellar reflex intensity grade: 2+, Left patellar reflex intensity grade: 2+, Right ankle reflex intensity grade: 2+ and Left ankle reflex intensity grade: 2+ Plantar Reflex Responses: downgoing: right, left and bilateral Coordination: [id number] test normal, [id number] test normal, tandem gait normal and Romberg test negative Pupils: Normal pupillary reactivity/response: bilateral Extrem: General: Yes normal to inspection, Yes normal exam except as noted and Yes no pedal edema Psych: Appearance: grossly normal Mental Status: mental status grossly normal Speech and movement: Normal speech and movement present and Clear speech present Affect: normal affect Attitude: cooperative Thought process: Normal thought process present Results Labs CBC & Chem 7: 09/16/20 05:10 09/16/20 05:10 Labs: Short CBC 09/15/20 09/16/20 Range/Units 16:00 05:10 WBC 8.7 9.0 (4.8-10.8) X10*3/uL Hgb 17.1 15.9 (14.0-18.0) g/dl Hct 49.7 46.7 (42-52) % Plt Count 329 323 (160-400) X10*3/uL BMP 09/15/20 09/16/20 16:00 05:10 Sodium 143 140 Potassium 3.6 3.4 Chloride 102 102 Carbon Dioxide 26 27 BUN 22 H 23 H Creatinine 1.56 H 1.55 H Calcium 9.4 9.2 Cardiac Enzymes 09/15/20 Range/Units 16:00 Total Creatine Kinase 157 (38-174) U/L Liver Function 09/16/20 Range/Units 05:10 Total Bilirubin 0.9 (0.0-1.0) mg/dL Direct Bilirubin 0.3 (0.0-0.5) mg/dL AST 14 (5-37) U/L ALT 16 (0-40) U/L Alkaline Phosphatase 70 (39-117) U/L Albumin 4.1 (3.5-5.0) g/dL Assessment and Plan (1) Hypertensive emergency: Problem details: Blood pressure is under better control. Status: Acute I have stressed to him the critical importance of taking his medications faithfully and controlling his blood pressure otherwise is going to end up with a stroke or cerebral hemorrhage which could be fatal. (2) Stroke: Qualifiers: CVA mechanism: unspecified Qualified Code(s): I63.9 - Cerebral infarction, unspecified Problem details: He may have had a minor her stroke related to hypertensive emergency but no evidence of major stroke. The MRI is not helpful since it is not going to private branch exchange operator in any way. He does not have evidence of large vessel disease or intracranial disease on CTA. Status: Acute Blood pressure control. Aspirin 81 mg (3) Anxiety and depression: Status: Acute (4) Hypertension: Problem details: Echocardiogram February 2019 EF 25-30% weak RV Status: Acute
--- NOTE | 2020-09-16 17:40 | MHC.STROKE ---
Addendum entered by Denise Ya RN 09/17/20 12:09: I MET WITH THE PATIENT AND HIS THIS MORNING, THEY DID REMEMBER ME FROM PRIOR ADMISSIONS. WE REVIEWED HIS PAST MEDICAL HISTORY, CURRENT EVENTS, PLAN OF CARE AND MD RECOMMENDATIONS. THEY WERE ASKING ABOUT A MRI AND IF IT WAS NEEDED THIS ADMISSION. I DID SPEAK WITH DR ZHU THIS AM AND REVIEWED HIS CASE. DR ZHU IS NOT RECOMMENDING A MRI, CT AND CTA H/N WERE DONE. HE IS RECOMMENDING BLOOD PRESSURE CONTROL AND ASPIRIN 81MG QD AT THIS TIME. WE DISCUSSED PLAVIX AND HE IS ADVISING TO WAIT UNTIL THE BLOOD PRESSURE IS UNDER CONTROL DUE TO INCREASED RISK FOR HEMORRHAGIC STROKE AND UNTIL THE PATIENT SEES DR MORENO. I DID RELAY THIS TO DR ARROYO AND THE PATIENT/. THERE WAS A QUESTION ON WHETHER OR NOT THE PATIENT WAS AN ANTICOAGULANT. I CHECKED WITH THE ANTICOAGULATION CLINIC AND HE HASN'T BEEN THERE SINCE 08/17/2017 AND HE WAS NONCOMPLIANT WITH SEVERAL OF HIS APPOINTMENTS THERE WELL. I ALSO WENT TO HEMATOLOGY AND SPOKE WITH DR MURPHY, AND SHE HASN'T SEEN HIM SINCE 2015. I CALLED [facility] AND SPOKE WITH THE PHARMACIST AND CONFIRMED THAT HE IS NOT ON ANY ANTICOAGULANT, ONLY ASPIRIN AND PLAVIX (CLOPIDOGREL). HE WAS ON DUAL-ANTIPLATELET AGENTS ASPIRIN AND PLAVIX WHEN HE TOOK THEM. HE ADMITS TO BEING NONCOMPLIANT WITH HIS MEDICATIONS. I STRESSED THE IMPORTANCE OF TAKING HIS PRESCRIBED MEDICATIONS, FOLLOWING UP WITH HIS PCP. HE HAS A BP CUFF AT HOME AND I AM RECOMMENDING THAT HE TAKES HIS BP DAILY OR MORE OFTEN, I GAVE HIM A CHART TO TRACK IT. I ALSO REFERRED HIM TO THE NURSE NAVIGATOR IN DR MORENO'S OFFICE. I PROVIDED STROKE EDUCATION INFORMATION, BOOKLETS, POWERPOINT SLIDES, AND ANSWERED ALL OF HIS QUESTIONS. I STRESSED COMPLIANCE WITH HIS MEDICAL CARE AND EXPLAINED THE RISKS OF NOT FOLLOWING HIS PCP'S ADVICE. Original Note: 09/15/20 1515 WALK-IN, STROKE LIKE SYMPTOMS STARTED 20 MINUTES WELDING ESTIMATOR APPROX [id number]. NIHSS = 2, LEFT DROOP/APHASIA. DIRECT TO CT, NO BLEED, CTA H/N NO LVO. BP ELEVATED 236/172 AND REMAINED VERY HIGH, THEREFORE EXCLUDED FORM TPA, ALSO LOW NIHSS AND STROKE SEVERITY NON-DISABLING. SEE DR JACOB'S NOTE. PASSED SWALLOW SCREEN AT 1650 PRIOR TO PO MED. PATIENT KNOWN TO STROKE SERVICE FOR MANY YEARS INCLUDING HIS FIRST RIGHT CEREBELLAR STROKE IN 09/23/2007 HE HAD A NEURO-SURGERY AT [facility] [place] DOCKERY. 2013, AND 2019. PATIENT WAS ON ANTICOAGULATION FOR LUPUS ANTICOAGULANT POSITIVITY, HE HAD BEEN SEEN BY HEMATOLOGY AND ANTICOAG CLINIC, LAST RECORDED INR WAS 08/17/17. SEEN BY CARDIOLOGY LOW EF, NEPHROLOGY RENAL INSUFF ? ACUTE. HE NEEDS EDUCATION ON COMPLIANCE OF MEDICATIONS, AND REVIEW STROKE RISK FACTORS, I HAVE ADDED THE INTERVENTION AND I WILL SEE HIM TOMORROW. HE IS INDEPENDELNTY AMBULATORY AND CAN BE EXCLUDED FROM REHAB ASSESSMENT UNLESS INDICATED.
[2020-09-16] MEDS: Melatonin 3 MG TABLET PO (20:48)
[2020-09-17] VITALS (9 sets, daily range): BP systolic 138–187; BP diastolic 90–124; PULSE 69–90; RESP 16–18; TEMP 36.2–36.9; O2SAT 95–98
[2020-09-17] MEDS: Heparin Sodium,Porcine 5,000 UNIT/ML VIAL 5000 UNIT SUBCUT ×3 (05:48→20:14)
[2020-09-17] MEDS: Aspirin Enteric Coated 81 MG TABLET.DR PO (08:14)
[2020-09-17] MEDS: Metoprolol Tartrate 25 MG TABLET 12.5 MG PO (08:15)
[2020-09-17] MEDS: Metoprolol Tartrate 12.5 MG HALFTAB PO (09:17)
--- NOTE | 2020-09-17 11:42 | P.PNIM_ITS ---
Subjective Subjective Date of Service: 09/17/20 Interval History: seen and examined this AM reports no new complaints, does endorse non-compliance > 8 months bedside all questions answered ROS General - no fevers or chills Cardiovascular - no chest pain Respiratory - no shortness of breath or cough Abdominal- no abdominal pain, nausea, vomiting, diarrhea Review of Systems General - no fevers or chills Cardiovascular - no chest pain Respiratory - no shortness of breath or cough Abdominal- no abdominal pain, nausea, vomiting, diarrhea Neurology - denies any new complaints Physical Exam Vital Signs: Vital Signs: Last Vital Signs Temp 97.7 F 09/17/20 10:53 Pulse 69 09/17/20 10:53 Resp 16 09/17/20 10:53 BP 172/110 H 09/17/20 10:53 Pulse Ox 98 09/17/20 10:53 Body Mass Index 27.4 Const: Other: General - no acute distress, appears comfortable Cardiovascular - regular rate and rhythm, S1-S2 Lungs - normal respiratory effort, clear to auscultation bilaterally, no wheezing Abdomen - soft, nontender, no rebound or guarding Extremities - no edema bilaterally Neuro - awake and alert, no focal deficits, speech normal Objective Data Current Medications Generic Name Dose Route Start Last Admin Trade Name Freq PRN Reason Stop Dose Admin Aspirin 81 mg 09/16/20 09:00 09/17/20 08:14 Aspirin Enteric Coated 81 Mg Tablet. PO 81 mg DAILY JASON Administration Atorvastatin Calcium 80 mg 09/16/20 00:45 09/16/20 20:48 Atorvastatin Calcium 80 Mg Tablet PO 80 mg BEDTIME JASON Administration Heparin Sodium (Porcine) 5,000 unit 09/16/20 06:00 09/17/20 05:48 Heparin Sodium,Porcine 5,000 Unit/Ml Vial SUBCUT 5,000 unit Q8H JASON Administration Lisinopril 10 mg 09/17/20 12:00 Lisinopril 10 Mg Tablet PO DAILY JASON Protocol Melatonin 3 mg 09/15/20 22:45 09/16/20 20:48 Melatonin 3 Mg Tablet PO 3 mg BEDTIME JASON Administration Metoprolol Tartrate 25 mg 09/17/20 21:00 Metoprolol Tartrate 25 Mg Tablet PO Q12H [facility] Protocol Labs CBC & Chem 7: 09/16/20 05:10 09/16/20 05:10 Assessment and Plan (1) Hypertensive emergency: Status: Acute Assessment and Plan: This is a 50 yo M admitted for hypertensives emergency and possibly a small acute CVA due to non-compliance with his antihypertensives. 1. Hypertensive Emergency last 24 hours BP range: 112-177 over 72-110 due to non-compliance with medications reports he has not taken meds in >8 months. Started on metoprolol 12.5mg BID in the ICU, will uptitrate to 25mg BID and add lisinopril 10mg (previously on coreg and lisinopril at home). continue statin and aspirin therapy currently bp still uncontrolled, needs further titration BP meds in patient 2. Acute slurred speech / facial droop TIA vs Small stroke from hypertension seen by Neurology -- MRI not needed (will not change mgmt) 3. HFrEF last echo in 2019 showing EF 25-30% not in exacerbation will need outpatient f/u with cardiology 4. History of lupus anticoagulant ? was previously on anticoagulation, but has been non-complaint d/w neurology -- continue with just aspirin for the time being (high risk for bleed at this time given BP issues) this needs to addressed as an outpatient -- will give referal to hematology 5. CKD, stage 3 SCr stable Full Code DVT pptx, subcut. heparin dispo: home once BP more stable.
[2020-09-17] MEDS: lisinopriL 10 MG TABLET PO ×2 (12:15→20:13)
--- NOTE | 2020-09-17 14:31 | MHC.CM.PN ---
per rounds pts blood pressure strill not controlled ..possible dc later today
[2020-09-17] MEDS: Melatonin 3 MG TABLET PO (20:12)
[2020-09-17] MEDS: Metoprolol Tartrate 25 MG TABLET PO (20:13)
[2020-09-17] MEDS: Atorvastatin Calcium 80 MG TABLET PO (20:14)
[2020-09-18 02:59] VITALS: BP 144/94; PULSE 78; RESP 18; TEMP 36.4; O2SAT 94
[2020-09-18] MEDS: Heparin Sodium,Porcine 5,000 UNIT/ML VIAL 5000 UNIT SUBCUT (05:17)
[2020-09-18 06:56] VITALS: BP 140/77; PULSE 74; RESP 18; TEMP 36.1; O2SAT 94
[2020-09-18 08:10] VITALS: BP 140/77; PULSE 74
[2020-09-18] MEDS: Metoprolol Tartrate 25 MG TABLET PO (08:10)
[2020-09-18] MEDS: lisinopriL 10 MG TABLET PO (08:10)
[2020-09-18] MEDS: Aspirin Enteric Coated 81 MG TABLET.DR PO (08:11)
--- NOTE | 2020-09-18 10:13 | MHC.SLORD ---
Speech Language Pathology Order Status: CORE JAVA SOFTWARE ENGINEER attempted to see pt for aphasia therapy this morning. Pt stated he was sleepy and requested CORE JAVA SOFTWARE ENGINEER to return in the afternoon. CORE JAVA SOFTWARE ENGINEER will re-attempt later today.
[2020-09-18 10:44] VITALS: BP 139/90; PULSE 67; RESP 18; TEMP 36.1; O2SAT 96
--- NOTE | 2020-09-18 11:12 | P.DS_ITS ---
DS: Providers Provider Date of Service: 09/18/20 Date of admission: 09/15/20 17:20 Primary care physician: Crystal Ellis MD Consults: 09/15/20 22:58 Consult to Neurology Routine Consulting Provider: [facility] Reason for consultation: stroke like sx HTN emergency Has provider been notified: No DS: Diagnosis Discharge Diagnosis (1) Stroke: Status: Acute (2) Hypertensive emergency: Status: Acute DS: Medications Discharge Medications Home Medications: Previous Rx's Medication Instructions Recorded aspirin 81 mg PO DAILY #30 tab 09/18/20 atorvastatin 80 mg PO BEDTIME #30 tab 09/18/20 lisinopril 20 mg PO DAILY #30 tab 09/18/20 metoprolol tartrate 25 mg PO Q12H #60 tab 09/18/20 DS: Summary Hospital Course Hospital Course: Patient presented with acute neurological deficits and was noted to have a blood pressure in the 200s over 100 range. As such he was admitted to the intensive care unit and treated as and hypertensive emergency. He was started on nicardipine drip and underwent workup which included a CTA of the head and CT head which were negative for acute findings. As his blood pressure improved the majority of his symptoms with the exception of expressive aphasia resolved. He was evaluated by Neurology who recommended that controlling blood pressure was the mainstay of his treatment. An MRI was not recommended, as it was unlikely to changes management. Patient was initiated initially on metoprolol 12.5 mg twice daily which has been up titrated to 25 mg b.i.d.. Despite this blood pressure remained uncontrolled and subsequently lisinopril 10 mg was added and be up titrated to 20 mg daily. Patient was evaluated by speech therapy who recommended outpatient speech therapy. The cause of his hypertensive emergency and acute stroke was related to noncompliance with his antihypertensive. The patient was previously on dual antiplatelet therapy as well as anticoagulation at some point in the past for lupus anticoagulant. Dual antiplatelet therapy as well as anticoagulation use was discussed with Neurology and they recommended deferring this to the outpatient setting, until his blood pressure is controlled. He needs to follow up with PCP within 1 weeks time at which point these issues can be further addressed. Time Spent with Patient Time attestation: Total time spent providing and/or coordinating discharge services: Discharge coordination time: Greater than 30 minutes Quality: Stroke Pt Provided Written Stroke Discharge Instructions: Patient given written information Physical Exam Vital Signs: Vital Signs: Last Vital Signs Temp 97 F 09/18/20 10:44 Pulse 67 09/18/20 10:44 Resp 18 09/18/20 10:44 BP 139/90 H 09/18/20 10:44 Pulse Ox 96 09/18/20 10:44 Body Mass Index 27.4 Const: Other: General - no acute distress, appears comfortable Cardiovascular - regular rate and rhythm, S1-S2 Lungs - normal respiratory effort, clear to auscultation bilaterally, no wheezing Abdomen - soft, nontender, no rebound or guarding Extremities - no edema bilaterally Neuro - awake and alert, no focal deficits Discharge Plan Discharge Patient Disposition: Home, Self-Care Discharge Diagnosis: Hypertensive Emergency, Acute CVA Referrals: Po,Crystal Galloway MD [Primary Care Provider] - 1 Week Discharge Medications: New aspirin 81 mg Tablet,Delayed Release (Dr/Ec) 81 mg PO DAILY Qty: 30 RF: 0 metoprolol tartrate 25 mg Tablet 25 mg PO Q12H Qty: 60 RF: 0 Continued atorvastatin 80 mg Tablet 80 mg PO BEDTIME Qty: 30 RF: 0 lisinopril 20 mg Tablet 20 mg PO DAILY Qty: 30 RF: 0 Discontinued donepezil 10 mg Tablet 10 mg PO BEDTIME RF: 0 clopidogrel 75 mg Tablet 75 mg PO DAILY RF: 0 olanzapine 2.5 mg Tablet 2.5 mg PO DAILY RF: 0 aspirin 81 mg Tablet 81 mg PO DAILY RF: 0 carvedilol 12.5 mg Tablet 12.5 mg PO BID RF: 0 Discharge Orders: Discharge Order (Routine); Ordered 09/18/20 Ordered By: Jesse Lo Diet: advance to usual diet, low fat, low cholesterol and low salt diet Activity on Discharge: As tolerated Stand Alone Forms: Patient Portal Discharge page Care Plan Goals: To stay healthy and out of the hospital. Health Concerns: Uncontrolled Blood Pressure Stroke Plan of Treatment: Uncontrolled Blood Pressure - Take Lisinopril 20mg daily, Take Metoprolol 25mg BID daily Stroke - Take aspirin 81 mg daily Follow up with your primary care doctor Assessment: 50 yo M with prior hemorrhagic stroke from uncontrolled HTN, presented with hypertensive emergency and likely small acute CVA. Secondary to non-complaince with his meds. Started on BP meds, will need further up-titration.
--- NOTE | 2020-09-18 11:17 | MHC.CM.PN ---
pt dcd home no skilled services ordered by
== END 2020-09-18 11:51 | disposition home or self-care (01) | DRG 65 ==
LOC: HO.ED 17:14 → HO.ICU 17:43 → HO.IMC 09-16 12:08
PROVIDERS: Physician Assistant Medical; Admitting Provider Anesthesiology; Emergency Provider Emergency Medicine; PCP Internal Medicine; Visit Provider Family Medicine
DX: I63.9 Cerebral infarction, unspecified (principal); I16.1 Hypertensive emergency; I42.9 Cardiomyopathy, unspecified; N17.9 Acute kidney failure, unspecified; D68.62 Lupus anticoagulant syndrome; I13.0 Hypertensive heart and chronic kidney disease with heart failure and stage 1 through stage 4 chronic kidney disease, or unspecified chronic kidney disease; I50.20 Unspecified systolic (congestive) heart failure; R47.02 Dysphasia; R29.702 NIHSS score 2; F41.9 Anxiety disorder, unspecified; N18.30 Chronic kidney disease, stage 3 unspecified; Z20.822 Contact with and (suspected) exposure to COVID-19; Z91.14 Patient's other noncompliance with medication regimen; Z79.02 Long term (current) use of antithrombotics/antiplatelets; Z79.82 Long term (current) use of aspirin; Z79.899 Other long term (current) drug therapy
CPT/HCPCS: 36415; 70450; 70496; 70498; 71045; 80048; 80061; 80076; 80307; 82550; 82947; 84484; 85025; 85610; 85730; 87635; 92523; 93005; 96374; 99285; 99291; Q9967

== ENCOUNTER 2020-09-27 19:04 | Outpatient (REF) | payer OTHER, MEDICARE, MEDICAID, SELFPAY ==
--- NOTE | ~2020-09-27 | MR_ITS ---
MRI OF THE BRAIN WITHOUT IV CONTRAST INDICATION: Cerebral infarction, unspecified COMPARISON: MRI brain 03/11/2019. TECHNIQUE: Multiplanar multisequence MR imaging of the brain was obtained without IV contrast. FINDINGS: There is no hydrocephalus, extra-axial surface collection, or herniation. Small acute infarct within the right abreu radiata. Possible small additional subacute infarcts within the abreu radiata bilaterally. Stable extensive confluent T2 signal changes throughout the supratentorial white matter and deep morgan nuclei bilaterally, presumably the sequelae of the patients known hx of SLE/antiphospholipid antibody syndrome. No mass effect and no hemorrhagic transformation. The major flow voids at the skull base are preserved. Innumerable punctate foci of susceptibility signal throughout the cerebral and cerebellar hemispheres bilaterally as well as the brainstem, likely chronic heel microhemorrhages given the patient's history. These foci have progressed when compared to the 03/11/2019 MRI. 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 The cerebellar tonsils are normally positioned. Chronic cerebellar infarcts again noted. The craniocervical junction is normal. Osseous marrow signal intensity is homogenous. The visualized soft tissues are unremarkable. MR/MR head/brain wo con IMPRESSION: - Small acute infarct within the right abreu radiata. Possible small additional subacute infarcts within the abreu radiata bilaterally. No mass effect and no hemorrhagic transformation. - Stable extensive confluent T2 signal changes throughout the supratentorial white matter and deep morgan nuclei bilaterally, presumably the sequelae of the patients known hx of SLE/antiphospholipid antibody syndrome. - Chronic cerebellar infarcts again noted. - Innumerable punctate foci of susceptibility signal throughout the cerebral and cerebellar hemispheres bilaterally as well as the brainstem, likely chronic heel microhemorrhages given the patient's history. These foci have progressed when compared to the 03/11/2019 MRI. Covering provider paged with these findings at 8:36 AM on 10/01/2020.
== END 2020-09-27 19:05 | disposition home or self-care (01) ==
LOC: HO.MRI 19:04
PROVIDERS: Visit Provider Internal Medicine
DX: I63.9 Cerebral infarction, unspecified (principal)
CPT/HCPCS: 70551

== ENCOUNTER 2020-10-11 15:29 | Outpatient (RCR) | payer OTHER, MEDICARE, SELFPAY ==
--- NOTE | 2020-10-16 12:55 | MHC.SP.ADU ---
Referring provider: Dr. Crystal Ellis Reason for Referral: Evaluate speech, language, and cognition s/p CVA Type of Treatment: 37021 Standardized Cognitive Performance Testing, per hour Date of Plan of Treatment: 10/11/20 Onset of Symptoms/Illness: 09/15/20 Date Treatment Started: 09/17/20 Medical Diagnosis: hypertensive emergency resulting in a CVA Primary Speech Language Diagnosis: R41.841 Cognitive communication disorder Secondary Speech Language Diagnosis: R47.01 Aphasia History Ant is a 50 year old male who was referred for a speech and language assessment by his primary care physician, Dr. Crystal Ellis, due to impairments in these domains following a CVA he sustained on 09/15/2020. Ant' explained that they were in a [employer] when Ant presented with a sudden onset of the inability to speak, dizziness, and a left facial droop. Mrs. Donaldson transported Ant to [facility]'s ED. Ant' initial blood pressure was documented as 265/170. As his blood pressure improved the majority of his symptoms except for expressive aphasia and impaired memory resolved. Ant' completed head CT revealed encephalomalacia or infarct of the bilateral cerebellum, right greater than left, old left basal ganglia and thalamic lacunar infarcts, and extensive periventricular white matter disease, all similar to February 2019 . TPA was not administered. An MRI was not completed during his hospitalization, though Mrs. Donaldson reported that Ant underwent an MRI of his brain as an outpatient following his discharge, per the request of his primary care physician. This MRI was reported by Mrs. Donaldson to reveal an increased infarct. He was evaluated by Neurology during his hospitalization who recommended that controlling blood pressure was the primary focus of his treatment. Ant was also evaluated by speech and language pathology and outpatient therapy was recommended. Following medication adjustments, his blood pressure improved and he was discharged from [facility] on 09/18/20. Per the completed adult case history form, Ant current experiences the following frequently: difficulty expressing thoughts, difficulty being understood by others, difficulties with orientation/memory, problem solving, reading/writing, word retrieval. He reported that he sometimes has difficulty with focus/attention, maintaining the topic of conversation, following direction, and difficulties with voice. Medical History: Allergies High Blood Pressure Stroke Other: Past medical history includes: anxiety and depression, cardiomyopathy, GERD (gastroesophageal reflux disease), prior history of a hemorrhagic CVA (cerebrovascular accident) in 2006 due to uncontrolled HTN, hypercholesterolemia, hypertension, insomnia, Lupus anticoagulant positive, right renal stone, vitamin D deficiency. Medication List: Lisinopril 40 mg, ASA and Plavix. Ant was reported to have not taken his medication for a few days prior to this most recent CVA. Recent Hospitalizations: Yes: 09/15/20-09/18/20 at [facility] due to a hypertensive emergency Respiratory Needs: Room Air Patient Orientation: Person, Place, and Year. Ant was not oriented to the current month or date. Social History: Employment Status: Supply Tech Employed Highest level of education obtained: Completed High School/GED Current Living Situation: Ant resides with his , Dana Donaldson, in a home in [place], [place]. He completed high school as well as 1 year of college. 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 Assistive Devices in use: Glasses/Contacts Comment: Ant ambulated without an assistive device. He wears cheater glasses when reading. Ant reported that his hearing is WFL, though he did require some repetitions of information presented aloud. However, this councilman was wearing a mask due to COVID-19 precautions, therefore it is possible Ant demonstrated difficulty with hearing due to this clinician's mask muffling her speech. Past Speech Language Therapy: Ant has never before received speech and language therapy. Other Therapies Seen in Current Calendar Year: None Reported Speech, Language, Cognition difficulties: Attention Reading Memory Cognition Speaking Problem Solving Writing Quality of Life: Mrs. Donaldson reported that Ant is now demonstrating a slower rate of speech and has experienced mild word retrieval difficulty in conversation. She did note that all of their family is able to understand Ant now as compared to immediately post CVA, at which time he demonstrated slurred speech. She also reported that Ant has demonstrated impairments with his memory. Mrs. Donaldson provided the following examples to describe how Ant' new speech, language, and cognitive impairments have affected his everyday life: 1. Mrs. Donaldson reported that Ant had no recollection of the telephone conversation he had with [facility] 3 days prior to his scheduled evaluation during which he was provided with directions to this location. 2. Mrs. Donaldson reported that Ant sent her to speak with a tree service at their home as he felt self conscious of his word retrieval difficulty. She reported that this was out of character for Ant, as he typically handles situations such as these. Patient Stated Goal of Speech-Language Therapy: Per the completed intake form: To be able to speak without struggling to find words and sounding out words correctly . Assessment Speech Production: Aphasic: Fluent Articulate Clinical Impression: Impaired Observations: Ant easily engaged in conversation which was 100% intelligible (understood) by this clinician. However, both Ant and Mrs. Donaldson report that Ant' speech intelligibility is slightly different from that of his baseline. Ant demonstrated a fast rate of speech during both standardized assessment tasks as well as spontaneous connected speech. Throughout the assessment, Ant requested several repetitions of information presented verbally, such as evaluation task directions. Informal Voice Assessment: Voice Loudness: Normal Voice Nasal Resonance: Normal Voice Oral Resonance: Normal Voice Phonatory-based Quality: Normal Voice Pitch: Normal Voice Other Observations: Clinical Impression: Intact Clinicial Observations: Ant demonstrated a WFL vocal quality throughout the assessment. Tests of Speech & Lang Adults: [place] Diagnostic Aphasia Examamination Clinical Impression: Impaired Observations: The short form of the [place] Diagnostic Aphasia Examination, 3rd edition, (BDAE) was administered. This standardized assessment is utilized to diagnose aphasia and related language disorders. This evaluation assesses conversational and expository speech, auditory comprehension, oral expression, reading, and writing. Ant achieved an overall aphasia severity rating of 3 out of 5. Per the BDAE, the description for a rating of 3 is as follows: The patient can discuss almost all everyday problems with little or no assistance. Reduction of speech and/or comprehension, however, makes conversation about certain material difficult or impossible. FLUENCY Ant' scores for fluency, based upon evaluation of free conversation and picture description using the ?Cookie Theft? picture are as follows: Phrase length: 7 out of 7, 100th percentile Melodic Line (prosody): 7 out of 7, 100th percentile Grammatical form: 4 out of 7 (uses simplified or incomplete grammatical morphemes; omissions of required grammatical morphemes, 30th percentile Ant achieved 7 out of 7, 100th percentile for conversational/expository speech, which assesses a pt?s ability to respond to simple, social greetings and questions. Ant appropriately responded to questions such as How are you today? , When are you going to be leaving here? , and What is your full name and address? AUDITORY COMPREHENSION Ant' scores in the area of auditory comprehension are as follows: Basic word discrimination: 16 out of 16, 100th percentile Following commands: 9 out of 10, 70th percentile Comprehension of complex ideational material: 4 out of 6, 50th percentile ARTICULATION Utilizing the articulatory agility rating scale, for which a score of 1 indicates a patient is unable to form speech sound, a score of 4 indicates a patient?s articulation is sometimes clumsy and effortful, and a score of 7 indicates speech that is never impaired, Ant achieved a score of 6, which falls in the 70th percentile. RECITATION Ant achieved a score of 4 out of 4, 100th percentile, when completing automatized verbal sequences such as counting and reciting the days of the week. REPETITION Ant achieved a score of 5/5 during a single word repetition task and a score of 2/2 during a sentence repetition task. NAMING Ant achieved a score of 10/10 during the responsive naming task. Questions on this task included What do we tell time with? and What do you do with a pencil? In addition, Ant was able to name letters, numbers, colors, and basic pictures with no instances of word retrieval difficulty. READING Ant achieved scores of 4/4 in the areas of matching cases and scripts, number matching, and picture-word matching. He achieved a score of 1/3 in the oral sentence reading subtest, during which he was presented with comprehension questions following sentences he read in the subtest administered beforehand. This subtest appeared challenging for Ant, as it is also a measure of short term memory. WRITING Ant provided the following when asked to write sentences to describe the Cookie Theft picture presented: water running from sink water on floor lady drying plate Adebayo slipping from chair Marcial grabbing cookins (cookies) Mother gross kids Elopping (slipping?) from chair Using the above writing sample, Ant achieved a score of 6 out of 11, placing his score in the 40th percentile. Ant' writing was notable for sentence fragments with lack of articles and verbs. Ant also demonstrated the insertion of additional letters in words as well as incorrect letters, i.e. adebayo for boy and marcial for boy. He demonstrated inconsistent use of capital letters at the beginning of his written phrases. No punctuation was included in Ant' writing sample. Incorrect verbs were also utilized, such as gross and elopping for slipping . Ant and his reported that prior to this CVA, his writing ability was within functional limits. 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 Tests of Cognition: Clinical Impression: Impaired Observations: The [place] Cognitive Assessment (MoCA) was administered. This screening tool is utilized to identify mild cognitive dysfunction in adults. It assesses the following cognitive domains: attention and concentration, executive functions, memory, language, visuospatial skills, conceptual thinking, calculations, and orientation. A score of 26 and above on the MoCA indicates normal cognition. Ant achieved a score of 12 out of a possible 30 points, indicating moderately impaired cognition. Ant demonstrated difficulty and frustration with the completion of visuospatial/executive function tasks presented such as the identification and completion of a visual pattern (alternating letters and numbers), the copying of a cube, and placing clock hands to reflect a time provided by this DELIMBER OPERATOR on a clock he niesha. Ant stated I can't do it, I'm getting frustrated . Initially, Ant was unable to recognize and complete the pattern of alternating numbers and letters i.e. 1, A, 2, B, 3, C and so forth. However, he was able to recognize that his initial written response was incorrect. When prompted to correct his word, he did so with all alternations except the alternation between 2 and B. Ant was able to immediately repeat five unrelated words presented verbally. However, when they were presented a second time, Ant stated Lost me there, the mind can't go back . However, when Ant was encouraged to take his time, he was able to recall 4 out of the 5 words presented. Given an approximately 5 minute delay, Ant was unable to retrieve any of the 5 words presented. This task is a measure of delayed recall. Ant was able to recall 1 out of 5 words when provided with a category cue and recalled 3 out of the 4 remaining words given a choice of 3 words. Ant also demonstrated difficulty with another immediate recall task using sentences of 11-13 words in length. Ant was unable to exactly recall either sentence presented aloud by this DELIMBER OPERATOR. However, Ant did recall enough of the sentence to maintain the gist of the message. Ant demonstrated WFL attention during a task in which this councilman presented a string of letters and numbers. Ant was asked to tap a pen each time he heard a specific letter ( A ). Ant was able to complete one serial subtraction task using mental math (100-7). He was unable to continue with the subtraction task when he was asked to subtract 7 from 93 and so on. Ant appeared very frustrated by his inability to complete this task, despite reassurance. His reported that prior to this CVA, Ant was really good with math . Ant demonstrated difficulty with a language abstraction task as well as a language fluency task. Ant was asked to name as many words that begin with the letter 'F' as possible given a 1 minute time constraint. Ant named 6 words in a 1 minute. The average number of expected words to be named is 11. Ant was able to verbalize how 2 basic items were alike, i.e. a train and a bicycle. Ant demonstrated difficulty with a more abstract task presented, i.e. Ant was unable to verbalize how a watch and a ruler were alike (both items measure). Lastly, Ant demonstrated intact orientation to the current city, location, day, and year. However, he incorrectly reported the month as October and was unable to state the current date. Augmentative and Alternative Communication: Did Not Test Observations: An AAC evaluation was not warranted at the time of the evaluation. Impressions and Recommendations Summary: Impact on Daily Function/Activity Limitations: Daily Activities: Moderate Interpersonal Interactions: Moderate Education: None Employment: Severe Community: Moderate Prognosis for Improvement: Excellent Comment: Ant' prognosis for improvement is excellent given his motivated nature and strong family support. Ant also demonstrated spontaneous recovery of his initially slurred speech, which is also a positive indicator for overall prognosis and recovery. Recommendation for Speech Therapy: Outpatient Speech Therapy Frequency/Duration: 1x week x12 weeks Time to Reassess: 3 months Short Term Goals: Goal # : 1.1 Ant will utilize semantic feature analysis to describe a functional picture or object with 80% accuracy given min cues as needed. Goal Status: New Goal Goal# : 2.1 Ant will write a complete and grammatically/syntactically correct sentence to describe a presented picture with 80% accuracy given min cues as needed. Goal Status: New Goal Goal # : 3.1 Ant will recall and utilize compensatory memory strategies with 80% accuracy given min-mod cues as needed. Goal Status: New Goal Goal # : 3.2 Ant will immediately recall functional information presented verbally i.e. a grocery list of 3-5 items with 80% accuracy using compensatory memory strategies Goal Status: New Goal Patient Education: Completed: Yes Patient/Caregiver Education: Described Results of Evaluation Patient expressed understanding of evaluation Patient agrees with goals and treatment plan Family/Caregivers expressed understanding of results Family/Caregivers expressed agreement with goals and treatment plan Comments/Barriers to Learning: No barriers were identified at the time of Ant' evaluation. Trauma Registrar Clinican/Clinical Fellow: No Supervisory Statement: N/A Speech Language Pathologist: Andie Ward M.A., CCC-DELIMBER OPERATOR
--- NOTE | 2020-10-25 13:56 | MHC.SLORD ---
Ant cancelled his first treatment session this date. Next session 11/01 at 10:30 AM.
== END 2021-09-16 16:04 | disposition home or self-care (01) ==
LOC: HO.SH 15:29
PROVIDERS: Visit Provider Internal Medicine
DX: R41.841 Cognitive communication deficit (principal); R47.01 Aphasia
CPT/HCPCS: 96125

== ENCOUNTER 2020-11-01 10:27 | Outpatient (RCR) | payer OTHER, MEDICARE, SELFPAY ==
--- NOTE | 2020-11-15 11:10 | MHC.SLORD ---
Per Cyndie Luciano, Ant Donaldson called to cancel his scheduled session just before the start of his session this date. Next session 11/22 at 10:30am.
--- NOTE | 2020-11-22 11:05 | MHC.SLORD ---
Ant was a no show to his scheduled appointment this date. This INFANT ROOM TEACHER called his home phone number which was automatically transferred to voicemail. A voicemail was left.
--- NOTE | 2020-11-29 11:22 | MHC.SLORD ---
Ant was a no show for his scheduled speech session this date. He also did not call or appear for his scheduled session on 11/22 and did not return this METALLURGICAL OR MATERIALS TECHNICIAN's phone call when a voicemail was left on 11/22. Per the [facility]'s director, Ant will be discharged at this time.
== END 2020-11-29 13:18 | disposition other institution (70) ==
LOC: HO.SH 10:27
PROVIDERS: Visit Provider Internal Medicine
DX: R47.01 Aphasia (principal); I63.9 Cerebral infarction, unspecified
CPT/HCPCS: 92507

== ENCOUNTER → 2021-01-30 12:57 | Outpatient (BNVA) | payer OTHER, MEDICARE, SELFPAY | PROVIDERS: PCP Internal Medicine; Referring Provider Internal Medicine; Visit Provider Internal Medicine Cardiovascular Disease ==

== ENCOUNTER 2021-06-24 12:15 | Outpatient (REF) | payer OTHER, MEDICARE, SELFPAY ==
[2021-06-24 12:36] LABS: MANUAL DIFF FLAG NO
[2021-06-24 12:58] LABS: Basophils Absolute Auto 0.1 X10*3/uL (0.0-0.2); Basophils Percent Auto 0.7 % (0-2); Eosinophils Absolute Auto 0.2 X10*3/uL (0.0-0.4); Hematocrit 48.3 % (42.0-52.0); Imm Gran Abs Auto 0.02 X10*3/uL (0.00-0.03); Imm Gran Pct Auto 0.3 % (0.0-0.4); Lymphocytes Absolute Auto 1.9 X10*3/uL (1.2-4.9); Lymphocytes Percent Auto 27.2 % (20-40); Mean Corpuscular HGB Conc 33.1 g/dl (31.0-36.0); Mean Corpuscular Hemoglobin 29.9 pg (27.0-33.0); Mean Corpuscular Volume 90.1 fL (80.0-98.0); Mean Platelet Volume 9.3 fL (9.4-12.4); Monocytes Absolute Auto 0.5 X10*3/uL (0.1-1.2); Monocytes Percent Auto 6.6 % (2-11); Neutrophils Absolute Auto 4.3 x10*3/uL (2.0-8.3); Neutrophils Percent Auto 62.2 % (45-73); Platelet Count 274 X10*3/uL (160-400); Red Blood Count 5.36 X10*6/uL (4.60-5.80); Red Cell Distribution Width 12.7 % (11.0-16.0); White Blood Count 6.9 X10*3/uL (4.8-10.8)
[2021-06-24 13:23] LABS: Alanine Aminotransferase 67 U/L (0-40); Albumin Level 4.2 g/dL (3.5-5.0); Alkaline Phosphatase 78 U/L (39-117); Anion Gap 10 (12-20); Aspartate Amino Transferase 32 U/L (5-37); Bilirubin Total 0.7 mg/dL (0.0-1.0); Blood Urea Nitrogen 18 mg/dL (9-16); Calcium 9.6 mg/dL (8.4-10.2); Carbon Dioxide 28 mmol/L (22-29); Chloride 110 mmol/L (96-108); Cholesterol 132 mg/dL; Estimated Glomerular Filt Rate 55; Glucose Random 94 mg/dL (60-115); HDL Cholesterol 31 mg/dL; LDL Cholesterol Calculated 84 mg/dl; Potassium 4.4 mmol/L (3.3-5.1); Sodium 144 mmol/L (135-145); Total Protein 6.7 g/dL (6.5-8.0); Triglycerides 85 mg/dL
[2021-06-24 14:02] LABS: Free T4 (Free Thyroxine) 1.09 ng/dL (0.71-1.85); Thyroid Stimulating Hormone 0.85 uIU/mL (0.32-4.0)
[2021-06-24 14:12] LABS: Prostate Specific Antigen Scr 1.64 ng/mL (<0.05-4.0)
== END 2021-06-24 12:16 | disposition home or self-care (01) ==
LOC: HO.LAB 12:15
PROVIDERS: PCP Internal Medicine; Visit Provider Internal Medicine
DX: Z12.5 Encounter for screening for malignant neoplasm of prostate (principal); E78.00 Pure hypercholesterolemia, unspecified; R73.01 Impaired fasting glucose; N28.9 Disorder of kidney and ureter, unspecified
CPT/HCPCS: 36415; 80053; 80061; 84153; 84439; 84443; 85025

== ENCOUNTER → 2021-06-27 07:58 | Outpatient (BNVA) | payer OTHER, MEDICARE, SELFPAY | PROVIDERS: PCP Internal Medicine; Referring Provider Internal Medicine; Visit Provider Nurse Practitioner ==

== ENCOUNTER 2021-06-28 10:40 | Outpatient (REF) | payer OTHER, MEDICARE, SELFPAY ==
[2021-06-28 12:10] LABS: C Reactive Protein 0.08 mg/dL (< or = 0.50)
[2021-06-29 11:51] LABS: Transglutaminase Ab IgG <1.0 U/mL; Transglutaminase IgA <1.0 U/mL
== END 2021-06-28 10:41 | disposition home or self-care (01) ==
LOC: HO.LAB 10:40
PROVIDERS: PCP Internal Medicine; Visit Provider Nurse Practitioner
DX: R19.7 Diarrhea, unspecified (principal)
CPT/HCPCS: 36415; 86003; 86140; 86364

== ENCOUNTER 2021-07-01 09:14 | Outpatient (REF) | payer OTHER, MEDICARE, SELFPAY | END 2021-07-01 09:15 | disposition home or self-care (01) | LOC: HO.LNP 09:14 | PROVIDERS: Visit Provider Nurse Practitioner | DX: R19.7 Diarrhea, unspecified (principal) | CPT/HCPCS: 87045; 87046 ==

== ENCOUNTER → 2021-07-30 09:44 | Outpatient (BNVA) | payer OTHER, MEDICARE, SELFPAY | PROVIDERS: PCP Internal Medicine; Referring Provider Internal Medicine; Visit Provider Nurse Practitioner | DX: K21.9 Gastro-esophageal reflux disease without esophagitis (principal); R19.7 Diarrhea, unspecified; R15.9 Full incontinence of feces | CPT/HCPCS: 99212 ==

== ENCOUNTER → 2021-09-24 15:20 | Outpatient (BNVA) | payer OTHER, MEDICARE, SELFPAY | PROVIDERS: PCP Internal Medicine; Visit Provider Nurse Practitioner | DX: K21.9 Gastro-esophageal reflux disease without esophagitis (principal) ==

== ENCOUNTER → 2021-10-25 10:14 | Outpatient (REF) | payer OTHER, MEDICARE, SELFPAY ==
--- NOTE | 2021-10-25 10:17 | CA_ITS ---
Transthoracic Echocardiogram Patient (Last, First, Middle): Ant Donaldson A Gender: Male Date of : 1970 Age: 51 Procedure Date: 10/25/2021 Procedure Type: Transthoracic Echocardiogram Location: OP Height: 165.1 cm Weight: 75.3 kg BSA: 1.83 m2 Heart Rate: 57 bpm BP: 136 / 86 mmHg Train Driver: SB Referring MD: Crystal Ellis MD Symptoms: I42.9 - Cardiomyopathy, unspecified Study Quality: Adequate ECG Rhythm: Bradycardia Conclusions: - The left ventricular systolic function is low normal. The calculated ejection fraction is 54% by biplane method. - There is mildly decreased right ventricular systolic function. - No obvious valvular pathology seen on this study. Findings Left Ventricle Normal left ventricular cavity size. There is normal left ventricular wall thickness. The left ventricular systolic function is low normal. The calculated ejection fraction is 54% by biplane method. There is no evidence of regional wall motion abnormalities. Diastolic function is normal for age. There is mild septal asymmetric hypertrophy. LV peak global longitudinal strain -13.6% (diminished). Right Ventricle Normal right ventricular cavity size. There is mildly decreased right ventricular systolic function. Atria Both atria are normal in size. Aortic Valve There is a normal trileaflet aortic valve. There is mild calcification of the aortic valve. There is no aortic valve stenosis. There is no aortic valve regurgitation. Mitral Valve The mitral valve appears normal. There is no mitral valve regurgitation. There is no mitral valve stenosis. Pulmonic Valve The pulmonic valve is likely normal. Tricuspid Valve Normal tricuspid valve structure. There is mild tricuspid valve regurgitation. The pulmonary artery systolic pressure is normal. Great Vessels The asc aorta is normal in size. Venous The inferior vena cava is normal in size and collapses greater than 50% with inspiration. Pericardium/Pleural There is no evidence of pericardial effusion. Prior Study Comparison Changes noted compared to prior study dated: 03/11/2019. Improved LVEF. Recommendations, Care & Conclusions No obvious valvular pathology seen on this study. Measurements 2D Linear Measurements IVSd: 1.02 0.6-0.9/0.6-1.0 cm LVIDd: 4.71 3.9-5.3/4.2-5.9 cm LVIDd Index: 2.57 2.4-3.2/2.2-3.1 cm/m2 LVIDs: 3.26 2.0-3.6 cm LVPWd: 0.89 0.7-1.1 cm LA Diam: 3.70 2.7-3.8/3.0-4.0 cm LAIDs Index: 2.02 1.5-2.3 cm/m2 LV Mass: 193.47 67-162/88-224 g LV Mass Index: 105.72 43-95/49-115 g/m2 LVOT Diam: 2.40 3.0+(-)1.3 cm 2D Systolic Function EF 4C: 50.60 >55% EF 2C: 57.50 >55% EF BiP: 54.20 >55% Mitral Valve MV Pk E: 0.68 MV PK A: 0.70 MV Decel Time: 192.00 E/A: 1.00 E'Lateral: 9.46 E'Medial: 7.29 E/E' Med: 9.30 E/E' Lat: 7.20 PHT: 56.00 MVA PHT: 3.93 Decel Loíza: 3.54 Aortic Valve AoV Pk Camacho: 1.23 AoV Mn Camacho: 0.85 AoV VTI: 0.24 AoV Pk Grad: 6.00 Aov Mn Grad: 3.00 KENNETH Cont.VTI: 3.60 LVOT LVOT Pk Camacho: 0.97 LVOT Mn Camacho: 0.67 LVOT VTI: 0.19 LVOT Pk Grad: 4.00 LVOT Mn Grad: 2.00 LVOT Diam: 2.40 LVOT Area: 4.52 Diastolic Function MV Pk E: 0.68 MV Pk A: 0.70 E/A: 1.00 E'Medial: 7.29 E/E' Med: 9.30 E' Laterial: 9.46 E/E' Lat: 7.20 Right Ventricle TAPSE (mm): 13.40 TVS' Camacho: 8.00 Tricuspid Valve TR Pk Camacho: 2.39 TR Pk Grad: 23.00 RA Press: 3.00 RVSP: 26.00 Great Vessels Aorta Sinus of Valsalva: 3.34 2.0-3.[address] [place]: 2.86 1.7-3.4 cm Ao Asc: 3.70 2.1-3.4 cm Pulmonary Veins Pulm Vein S/D 1.40 Pulmonary Valve PV Pk Camacho: 0.99 Peak PV Grad: 4.00 Updated in Other Vendor System with Status of Final Hoang Flannery MD electronically signed on 10/27/2021 1:35:52 PM with status of Final
== END ==
LOC: HO.CARD 10:14
PROVIDERS: Visit Provider Internal Medicine
DX: I42.9 Cardiomyopathy, unspecified (principal)
CPT/HCPCS: 93306

== ENCOUNTER 2021-11-20 09:52 | Outpatient (REF) | payer OTHER, MEDICARE, MEDICAID, SELFPAY ==
[2021-11-20 10:05] LABS: MANUAL DIFF FLAG NO
[2021-11-20 10:35] LABS: Basophils Absolute Auto 0.1 X10*3/uL (0.0-0.2); Basophils Percent Auto 0.7 % (0-2); Eosinophils Absolute Auto 0.3 X10*3/uL (0.0-0.4); Eosinophils Percent Auto 3.8 % (0-4); Hematocrit 46.9 % (42.0-52.0); Hemoglobin 15.8 g/dl (14.0-18.0); Imm Gran Abs Auto 0.03 X10*3/uL (0.00-0.03); Imm Gran Pct Auto 0.4 % (0.0-0.4); Lymphocytes Absolute Auto 1.8 X10*3/uL (1.2-4.9); Lymphocytes Percent Auto 21.4 % (20-40); Mean Corpuscular HGB Conc 33.7 g/dl (31.0-36.0); Mean Corpuscular Hemoglobin 30.6 pg (27.0-33.0); Mean Corpuscular Volume 90.7 fL (80.0-98.0); Mean Platelet Volume 9.4 fL (9.4-12.4); Monocytes Absolute Auto 0.6 X10*3/uL (0.1-1.2); Monocytes Percent Auto 6.6 % (2-11); Neutrophils Absolute Auto 5.7 x10*3/uL (2.0-8.3); Neutrophils Percent Auto 67.1 % (45-73); Platelet Count 283 X10*3/uL (160-400); Red Blood Count 5.17 X10*6/uL (4.60-5.80); Red Cell Distribution Width 13.4 % (11.0-16.0); White Blood Count 8.5 X10*3/uL (4.8-10.8)
[2021-11-20 11:25] LABS: Alanine Aminotransferase 33 U/L (0-40); Albumin Level 4.2 g/dL (3.5-5.0); Alkaline Phosphatase 76 U/L (39-117); Anion Gap 13 (12-20); Aspartate Amino Transferase 21 U/L (5-37); Bilirubin Total 0.7 mg/dL (0.0-1.0); Blood Urea Nitrogen 18 mg/dL (9-16); Calcium 9.2 mg/dL (8.4-10.2); Carbon Dioxide 24 mmol/L (22-29); Chloride 109 mmol/L (96-108); Cholesterol 173 mg/dL; Estimated Glomerular Filt Rate 57; Glucose Random 92 mg/dL (60-115); HDL Cholesterol 41 mg/dL; LDL Cholesterol Calculated 109 mg/dl; Potassium 4.1 mmol/L (3.3-5.1); Sodium 142 mmol/L (135-145); Total Protein 7.3 g/dL (6.5-8.0); Triglycerides 115 mg/dL
== END 2021-11-20 09:53 | disposition home or self-care (01) ==
LOC: HO.LAB 09:52
PROVIDERS: PCP Internal Medicine; Visit Provider Internal Medicine
DX: E78.00 Pure hypercholesterolemia, unspecified (principal)
CPT/HCPCS: 36415; 80053; 80061; 85025

== ENCOUNTER 2021-12-12 08:45 | Day surgery (SDC) | payer OTHER, MEDICARE, SELFPAY ==
[2021-12-06 12:24] VITALS: BMI 29.6
--- NOTE | 2021-12-12 08:56 | MHC.SHP ---
Pre-Procedural Eval Section A Date of Service: 12/12/21 Section B Chief Complaint: Diarrhea,reflux disease Relevant Family History (Specify if Yes): No Relevant Social History: None Present Medications: see Short Stay Collaborative assessment Medical History: Significant History (Anxiety and depression Cardiomyopathy GERD (gastroesophageal reflux disease) History of CVA (cerebrovascular accident) Hypercholesterolemia Hypertension Hypertensive emergency Insomnia Lupus anticoagulant positive Right renal stone Stroke Vitamin D deficiency) History of Previous Operations: Relevant previous surgery/procedure and date(s) (Hx of appendectomy Hx of brain surgery) Allergies: Allergies Allergy/AdvReac Type Severity Reaction Status Date / Time lisinopril AdvReac Intermediate Diarrhea Verified 12/06/21 12:13 Shellfish Allergy Mild HIVES Uncoded 12/06/21 12:13 seafood Allergy Unknown hives Uncoded 12/06/21 12:13 Review of Systems Sugical H&P ROS: Negative: Constitution, Cardiovascular, Respiratory, Neurological, Psychiatric, Hem-Onc, Allergic/Immunologic, Gastrointestinal, Genitourinary, Musculoskeletal, Integumentary, Endocrine and Eyes/Ears/Nose/Throat Exam Surgical H&P Exam: Normal: HEENT, Normal: Heart, Normal: Lungs, Normal: Extremities, Normal: Abdomen, Normal: Skin and Normal: Neurological Plan Diagnosis/Plan: Unchanged I have reviewed the history and physical and performed a pertinent physical examination on my patient. No changes have occurred unless specified.
[2021-12-12 09:15] VITALS: BP 153/112; PULSE 77; RESP 18; TEMP 36.3; O2SAT 96
[2021-12-12 09:31] VITALS: BP 142/106
--- NOTE | 2021-12-12 09:32 | HO.ANESPROP2 ---
HPI - Anesthesia Eval Consult details Narrative: 51M for EGD and colonoscopy CVA , right sided weakness, cardiomyopathy , HTN [facility] Active Problems Active Problems: All Active Problems (Updated 12/06/21 @ 12:24 by Tamiko Thorne RN) Anxiety and depression (Acute) Expressive aphasia (Acute) Impaired fasting blood sugar (Acute) Rectal incontinence (Acute) Colon cancer screening (Acute) Renal insufficiency (Acute) COVID-19 virus infection (Acute) Diarrhea (Acute) Recurrent major depression (Acute) Impacted cerumen of right ear (Acute) Hypertension (Acute) Lupus anticoagulant positive (Acute) History of CVA (cerebrovascular accident) (Acute) Cardiomyopathy (Acute) Hypercholesterolemia (Acute) GERD (gastroesophageal reflux disease) (Acute) Past Medical History Medical History Cardiomyopathy Generalized anxiety disorder GERD (gastroesophageal reflux disease) History of CVA (cerebrovascular accident) Hypercholesterolemia Hypertension Hypertensive emergency Insomnia Lupus anticoagulant positive On beta whit at home Right renal stone Stroke Vitamin D deficiency Functional capacity: independent ambulation Family History Family History Mother Cancer HTN (hypertension) Father Diabetes HTN (hypertension) Sister HTN (hypertension) Sister HTN (hypertension) Family history of problems with anesthesia: No Surgical History Surgical History Hx of appendectomy Hx of brain surgery History of Problems with Anesthesia: No Social History Social History Housing: House Are you a primary critical care nurse practitioner to a significant other at home: No Do you presently have visiting nurse or other home services: No Alcohol intake: former Patient Tobacco Use Status: Former Tobacco user Quit Date: 2006 Smoked: 1 e-Cigarette/Vaping Use: Never Used Second Hand Smoke Exposure: No service: No Current occupational status: disabled Cognitive needs: No Hearing needs: No Vision needs: No Meds Allergies Allergy/AdvReac Type Severity Reaction Status Date / Time lisinopril AdvReac Intermediate Diarrhea Verified 12/12/21 09:04 Shellfish Allergy Mild HIVES Uncoded 12/12/21 09:06 seafood Allergy Unknown hives Uncoded 12/12/21 09:10 Exam Exam Date and Time: December 12, 2021 0932 Height,Weight and Vital Signs: Height 5 ft 5 in Weight 80.739 kg Last Vital Signs Temp 97.3 F 12/12/21 09:15 Pulse 77 12/12/21 09:15 Resp 18 12/12/21 09:15 BP 142/106 H 12/12/21 09:31 Pulse Ox 96 12/12/21 09:15 O2 Del Method 12/12/21 09:15 Airway Mallampati Class: III TM Dist: >3cm Neck ROM: Full Loose/Missing/Broken Teeth: Yes Heart: S1,S2 Lungs: b/l breath sounds Assessment and Plan Assessment Anesthesia Assessment: Anesthesia Plan Discussed and Chart Reviewed Final Anesthetic Review Family History of Problems with Anesthesia: No History of Problems with Anesthesia: No NPO: Yes ASA Class: III Final Preanesthetic Review: Meds/Allgs Chart Reviewed, Consent Obtained/Reviewed and Anes Risks/Benef Reviewed Patient Risk: Intermediate Procedure Risk: Intermediate Anesthetic Plan Anesthetic Plan: MAC: Disposition: Standard PACU
--- NOTE | 2021-12-12 09:34 | P.OP_ITS ---
Operative Note Operative Note Date of Service: 12/12/21 Narrative: Operative Information Procedure Description: EGD, Colonoscopy Indication: GERD, diarrhea Anesthesia: MAC FLEXIBLE TRANSORAL UPPER GASTROINTESTINAL ENDOSCOPY AND COLONOSCOPY PROCEDURE NOTE UPPER ENDOSCOPY Consent: Indications for the procedure and potential complications of bleeding, perforation, reaction to medications and missed diagnosis were discussed with the patient and informed consent was obtained. Instrument: Olympus GIF H 190 J mid size upper endoscope Monitoring: Vital signs and clinical assessment, continuous EKG monitoring, Pulse oximetry, Carbon Dioxide monitoring and blood pressure monitoring were done throughout the procedure. Procedure: The patient was placed in the left lateral decubitis position and pre-procedure medications were administered and a bite block was placed. The endoscope was inserted into the mouth and advanced under direct vision to the third part of duodenum. A careful inspection was made as the upper endoscope was withdrawn including a retroflexed examination of the proximal stomach; Findings and interventions are described below. Findings: Larynx:normal Esophagus: GE junction at 40 cm, diaphragm hiatus at 40 cm, bogginess and edema at GEJ with slight erosion, bx taken from GEJ and lower/proximal esophagus Stomach: Patchy erythematous mucosa. Biopsies were obtained. Grade 2 flap valve on retroflexed examination of the cardia. several fundic gland appearing polyps noted, 10 mm, removed with cold snare Duodenum: Patchy erythema, bx taken Intervention: Biopsies as noted above, polypectomy COLONOSCOPY Instrument: Olympus variable stiffness pediatric scope 190L Colonoscopy Monitoring: Vital signs and clinical assessment, continuous EKG monitoring, Pulse oximetry, Carbon Dioxide monitoring and blood pressure monitoring were done throughout the procedure. Colon withdrawal time was 12 minutes. Procedure: The patient was placed in the left lateral decubitis position and pre-procedure medications were administered. After a digital rectal examination of the ano-rectum, the video colonoscope was inserted into the rectum and advanced through the colon to the cecum/TI. The colonoscope was slowly withdrawn in a retrograde panoramic fashion and the colon mucosa was carefully examined including a retroflexed view of the rectum. Findings and interventions are described below. Procedure Difficulty:moderate due to looping Findings: Terminal Ileum-normal, bx taken random colon bx taken Cecum:normal Ascending Colon: normal Transverse Colon -normal Descending Colon:normal Sigmoid Colon: moderate severe diverticulosis with thickened mucosa and luminal narrowing Rectum: Retroflexion with small internal hemorrhoids, grade I Anorectum - normal Colon preparation: [place] Bowel Preparation Scale Right colon; 2 Transverse colon: 2 Left colon; 2 (0 = Unprepared colon segment with mucosa not seen due to solid stool that cannot be cleared. 1 = Portion of mucosa of the colon segment seen, but other areas of the colon segment not well seen due to staining, residual stool and/or opaque liquid. 2 = Minor amount of residual staining, small fragments of stool and/or opaque liquid, but mucosa of colon segment seen well. 3 = Entire mucosa of colon segment seen well with no residual staining, small fragments of stool or opaque liquid) Impression and Post Procedure Diagnosis: Endoscopy Findings: gastritis gastric polyps duodenitis erosive esophagitis Colonoscopy Findings: internal hemorrhoids diverticular disease Plan: Await Pathology results If H pylori pos then treat, if not on PPI may benefit Repeat Colonoscopy in 10 years or earlier if clinically indicated High fiber diet leaflet avoid straining at stool, epsom salts and sitz bath, anusol supps or cream Above findings were reviewed with the patient and relevant handouts were provided if indicated.
[2021-12-12 10:33] VITALS: BP 113/83; PULSE 73; RESP 16; TEMP 36.4; O2SAT 96
[2021-12-12 10:48] VITALS: BP 110/80; PULSE 59; RESP 16; TEMP 36.1; O2SAT 100
[2021-12-12 11:03] VITALS: BP 139/84; PULSE 70; RESP 16; TEMP 36.2; O2SAT 96
== END 2021-12-12 11:48 | disposition home or self-care (01) ==
PROVIDERS: PCP Internal Medicine; Visit Provider Internal Medicine Gastroenterology
PROC: (CPT 45380; principal; 2021-12-12 10:10)
DX: R19.7 Diarrhea, unspecified (principal); K57.30 Diverticulosis of large intestine without perforation or abscess without bleeding; K64.0 First degree hemorrhoids; K21.9 Gastro-esophageal reflux disease without esophagitis; K31.7 Polyp of stomach and duodenum; K20.80 Other esophagitis without bleeding; K29.50 Unspecified chronic gastritis without bleeding; K29.80 Duodenitis without bleeding; Z87.891 Personal history of nicotine dependence; K44.9 Diaphragmatic hernia without obstruction or gangrene; Z88.8 Allergy status to other drugs, medicaments and biological substances; Z79.82 Long term (current) use of aspirin; Z79.899 Other long term (current) drug therapy
CPT/HCPCS: 45380; 43251; 43239; 88305; 88342

== ENCOUNTER 2022-01-03 15:54 | Outpatient (REF) | payer OTHER, MEDICARE, SELFPAY ==
[2022-01-04 12:20] LABS: H Pylori Breath Test Negative (Negative)
== END 2022-01-03 15:55 | disposition home or self-care (01) ==
LOC: HO.LNP 15:54
PROVIDERS: Visit Provider Internal Medicine Gastroenterology
DX: K21.9 Gastro-esophageal reflux disease without esophagitis (principal)
CPT/HCPCS: 83013

== ENCOUNTER 2022-06-05 18:08 | Emergency (ER) | payer OTHER, SELFPAY ==
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
[2022-06-05 18:19] VITALS: BP 181/128; PULSE 82; RESP 16; TEMP 36.3; O2SAT 96; BMI 27.4
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
== END 2022-06-05 20:06 | disposition home or self-care (01) ==
PROVIDERS: Emergency Provider Emergency Medicine; PCP Internal Medicine
DX: S01.81XA Laceration without foreign body of other part of head, initial encounter (principal); S63.501A Unspecified sprain of right wrist, initial encounter; R51.9 Headache, unspecified; M54.2 Cervicalgia; M79.641 Pain in right hand; V43.52XA Car driver injured in collision with other type car in traffic accident, initial encounter; Y93.9 Activity, unspecified; Y92.410 Unspecified street and highway as the place of occurrence of the external cause; Y99.9 Unspecified external cause status; Z87.891 Personal history of nicotine dependence
CPT/HCPCS: 12051; 70450; 71046; 72125; 73110; 73130; 99283; 99284

== ENCOUNTER → 2022-07-08 09:55 | Outpatient (BNVA) | payer OTHER, MEDICARE, MEDICAID, SELFPAY | PROVIDERS: PCP Internal Medicine; Visit Provider Nurse Practitioner | DX: K21.9 Gastro-esophageal reflux disease without esophagitis (principal); K58.0 Irritable bowel syndrome with diarrhea; K22.10 Ulcer of esophagus without bleeding | CPT/HCPCS: 99212 ==

== ENCOUNTER 2022-12-31 09:58 | Outpatient (AMB) | payer OTHER, MEDICARE, SELFPAY ==
--- NOTE | 2022-12-31 10:05 | MHC.OFFVIS ---
Intake Vital Signs 12/31/22 10:06 Height 5 ft 4 in Weight 184 lb BMI 31.6 BP 102/90 H Blood Pressure Location Rt brachial Position Sitting Pulse 75 Intake Visit Reasons: 6 month follow up Intake Note: Patient presents to in office visit today in 6 months follow up of GERD. CC: Patient presents in 6 months follow up. Denies having any new GI symptoms today. Director Surgical Required: No Accompanied by: Self / Same As Patient Allergies lisinopril Adverse Reaction (Intermediate, Verified 12/31/22 10:11) Diarrhea Shellfish Allergy (Mild, Uncoded 08/11/22 16:29) HIVES seafood Allergy (Unknown, Uncoded 08/11/22 16:29) hives HPI 6 month follow up HPI Details Assessment & Plan (1) GERD (gastroesophageal reflux disease): ?Code(s): K21.9 - Gastro-esophageal reflux disease without esophagitis ?Plan: He continues to do very well.? He finds that the Viberzi controls his diarrhea well and is pantoprazole controls his heartburn.? He remains happy with his GI regimen. Return office visit in 6 months (2) Irritable bowel syndrome with diarrhea: ?Code(s): K58.0 - Irritable bowel syndrome with diarrhea (3) Erosive esophagitis: ?Code(s): K22.10 - Ulcer of esophagus without bleeding TODAY'S VISIT He continues to do very well.? He finds that the Viberzi controls his diarrhea well and is pantoprazole controls his heartburn.? He remains happy with his GI regimen. The return office visit in 6 months. [facility] Medical History Cardiomyopathy Generalized anxiety disorder GERD (gastroesophageal reflux disease) History of CVA (cerebrovascular accident) Hypercholesterolemia Hypertension Hypertensive emergency Insomnia Lupus anticoagulant positive On beta whit at home Right renal stone Stroke Vitamin D deficiency Surgical History H/O colonoscopy Hx of appendectomy Hx of brain surgery Family History Mother Cancer HTN (hypertension) Father Diabetes HTN (hypertension) Sister HTN (hypertension) Sister HTN (hypertension) Social History Housing: House Are you a primary healthcare translator to a significant other at home: No Do you presently have visiting nurse or other home services: No Alcohol intake: former Patient Tobacco Use Status: Former Tobacco user Quit Date: 2006 Smoked: 1 e-Cigarette/Vaping Use: Never Used Second Hand Smoke Exposure: No Advance Directives Date on File: 06/05/22 service: No Current occupational status: disabled Cognitive needs: No Hearing needs: No Vision needs: No Review of Systems Const Denies fatigue, Denies fever(s), Denies night sweats, Denies poor appetite and Denies weight loss ENT Reports Normal hearing present, Denies dental pain, Denies dysphagia, Denies hearing loss, Denies mouth pain, Denies odynophagia, Denies throat swelling, Denies tongue swelling and Reports other (Dentition adequate) Card Reports no additional complaints Resp Reports no additional complaints GI Denies abdominal pain, Denies melena, Denies bloating, Denies hematochezia, Denies constipation, Denies GI cramping, Denies dysphagia, Denies excessive flatus, Denies early satiety, Reports heartburn, Reports diarrhea, Denies nausea, Denies odynophagia, Denies vomiting and Denies hematemesis Skin/Breast Denies pruritus, Denies lesions, Denies rash and Denies jaundice Neuro Reports Normal hearing present and Denies Abnormal speech present Endo Denies fatigue Aller/Immun Denies throat swelling and Denies tongue swelling Physical Exam Vital Signs: Last Vital Signs Pulse 75 12/31/22 10:06 BP 102/90 H 12/31/22 10:06 BMI result Body Mass Index 31.6 Const General: cooperative, no acute distress, well developed and well groomed Nutritional Appearance: well nourished and overweight Orientation/consciousness: oriented to person, oriented to place and oriented to time Limitations: No language barrier HEENT Head: Yes normocephalic and Yes atraumatic Eyes General: appearance normal, both eyes and all related structures Pupils: Equal, round and reactive pupils present Neck Neck: Yes normal visual inspection and Yes no lymphadenopathy Thyroid: Thyroid normal Resp Effort & Inspection: normal respiratory effort and able to speak in complete sentences Auscultation: clear to auscultation bilaterally Cardio Rate: regular rate Rhythm: regular rhythm Heart sounds: Normal, physiologic split S2 sound present Peripheral pulses: radial pulses present and posterior tibial pulses present GI Inspection: No distended, No Abdominal panniculus present and Yes obesity Palpation (GI): Soft to palpation, nontender, no guarding, not rigid and No hepatosplenomegaly present Percussion: Yes normal to percussion Auscultation: normal bowel sounds Rectal Exam - Male: Yes deferred Skin General skin exam: no rashes or lesions noted, turgor normal, skin not dry, no jaundice, No spider nevi and no striae Rashes: no rashes Nails: normal Neuro General: oriented to person, oriented to place and oriented to time Cranial nerves: Yes Equal, round and reactive pupils present and Yes Normal hearing present Speech: No Abnormal speech present Extrem General: Yes normal to inspection, No clubbing, No cyanosis and No edema Psych Appearance: grossly normal and well kempt Mental Status: mental status grossly normal Speech and movement: Normal speech and movement present Affect: normal affect Attitude: cooperative Thought process: Normal thought process present and not confabulating Thought content: Normal thought content present Insight: Fair insight present (Psych) Judgement: Fair judgement present (Psych) Assessment & Plan Assessment & Plan (1) Erosive esophagitis: Code(s): K22.10 - Ulcer of esophagus without bleeding Plan: He continues to do very well.? He finds that the Viberzi controls his diarrhea well and is pantoprazole controls his heartburn.? He remains happy with his GI regimen. The return office visit in 6 months. (2) Irritable bowel syndrome with diarrhea: Code(s): K58.0 - Irritable bowel syndrome with diarrhea (3) GERD (gastroesophageal reflux disease): Code(s): K21.9 - Gastro-esophageal reflux disease without esophagitis Medications: Refilled pantoprazole 40 mg PO DAILY 30 tabs 6RF K22.10 - Ulcer of esophagus without bleeding eluxadoline (Viberzi) must administer with a meal/food 100 mg PO BID 60 tabs 5RF K58.0 - Irritable bowel syndrome with diarrhea Coding Level of Care Code Est Pt Level 3 (48647) Diagnoses Erosive esophagitis K22.10 Irritable bowel syndrome with diarrhea K58.0 GERD (gastroesophageal reflux disease) K21.9
[2022-12-31 10:06] VITALS: BP 102/90; PULSE 75; BMI 31.6
== END 2022-12-31 10:30 | disposition home or self-care (01) ==
PROVIDERS: PCP Internal Medicine; Visit Provider Nurse Practitioner
DX: K22.10 Ulcer of esophagus without bleeding (principal); K58.0 Irritable bowel syndrome with diarrhea; K21.9 Gastro-esophageal reflux disease without esophagitis
CPT/HCPCS: 99213

== ENCOUNTER → 2022-12-31 09:58 | Outpatient (BNVA) | payer OTHER, MEDICARE, SELFPAY | PROVIDERS: PCP Internal Medicine; Visit Provider Nurse Practitioner ==

== ENCOUNTER 2023-03-11 12:36 | Outpatient (AMB) | payer OTHER, MEDICARE, SELFPAY ==
--- NOTE | 2023-03-11 12:39 | MHC.OFFVIS ---
Intake Vital Signs 03/11/23 12:40 Height 5 ft 4 in Weight 185 lb BMI 31.8 BP 141/101 H Blood Pressure Location Rt brachial Position Sitting Pulse 94 Intake Visit Reasons: Follow up diarrhea/Pt request Intake Note: Patient presents to in office visit today in follow up of diarrhea. CC: Patient reports she is having diarrhea again for a few weeks. Patient believes is his fault because he has been taking medication with beer. Per patient he stopped driniking beer for about a week and his diarrhea symptoms has improved. 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 He finds that the Viberzi controls his diarrhea well and is pantoprazole controls his heartburn.? He remains happy with his GI regimen. Return office visit in 6 months (2) Irritable bowel syndrome with diarrhea: ?Code(s): K58.0 - Irritable bowel syndrome with diarrhea (3) Erosive esophagitis: ?Code(s): K22.10 - Ulcer of esophagus without bleeding TODAY'S VISIT He has been having more diarrhea with fecal incontinence, but he has been drinking more beer at home and eating hot sauce. He also is worried about his finances since he stopped working after his stroke. He would like something for stress, and I direct him to his PCP. Will print FODMAP to help as well. Already had RAST. Food diary encouraged. No F/C/N/V, he also has been taking imodium which concerns me for SBO but he will try cutting back. He continues on Viberzi twice a day which is quite a strong medication and worries me in terms of possible obstruction. He also continues on his pantoprazole for GERD. ROV 6 weeks. [facility] Medical History On beta whit at home Generalized anxiety disorder Stroke Hypertensive emergency Right renal stone Cardiomyopathy Hypercholesterolemia Lupus anticoagulant positive Vitamin D deficiency GERD (gastroesophageal reflux disease) Insomnia History of CVA (cerebrovascular accident) Hypertension Surgical History H/O colonoscopy Hx of appendectomy Hx of brain surgery Family History Mother Cancer HTN (hypertension) Father Diabetes HTN (hypertension) Sister HTN (hypertension) Sister HTN (hypertension) Social History Housing: House Are you a primary animal daycare provider to a significant other at home: No Do you presently have visiting nurse or other home services: No Alcohol intake: former Patient Tobacco Use Status: Former Tobacco user Quit Date: 2006 Smoked: 1 e-Cigarette/Vaping Use: Never Used Second Hand Smoke Exposure: No Advance Directives Date on File: 06/05/22 service: No Current occupational status: disabled Cognitive needs: No Hearing needs: No Vision needs: No Review of Systems Const Denies fatigue, Denies fever(s), Denies night sweats, Denies poor appetite and Denies weight loss ENT Reports Normal hearing present, Denies dental pain, Denies dysphagia, Denies hearing loss, Denies mouth pain, Denies odynophagia, Denies throat swelling, Denies tongue swelling and Reports other (Dentition adequate) Card Reports no additional complaints Resp Reports no additional complaints GI Denies abdominal pain, Denies melena, Denies bloating, Denies hematochezia, Denies constipation, Reports GI cramping, Denies dysphagia, Denies excessive flatus, Denies early satiety, Reports heartburn, Reports diarrhea, Denies nausea, Denies odynophagia, Denies vomiting and Denies hematemesis Skin/Breast Denies pruritus, Denies lesions, Denies rash and Denies jaundice Neuro Reports Normal hearing present and Denies Abnormal speech present Endo Denies fatigue Aller/Immun Denies throat swelling and Denies tongue swelling Physical Exam Vital Signs: Last Vital Signs Pulse 94 03/11/23 12:40 BP 141/101 H 03/11/23 12:40 BMI result Body Mass Index 31.8 Const General: cooperative, no acute distress, well developed and well groomed Nutritional Appearance: well nourished and obese Orientation/consciousness: oriented to person, oriented to place and oriented to time Limitations: No language barrier HEENT Head: Yes normocephalic and Yes atraumatic Eyes General: appearance normal, both eyes and all related structures Pupils: Equal, round and reactive pupils present Neck Neck: Yes normal visual inspection and Yes no lymphadenopathy Thyroid: Thyroid normal Resp Effort & Inspection: normal respiratory effort and able to speak in complete sentences Auscultation: clear to auscultation bilaterally Cardio Rate: regular rate Rhythm: regular rhythm Heart sounds: Normal, physiologic split S2 sound present Peripheral pulses: radial pulses present and posterior tibial pulses present GI Inspection: No distended, No Abdominal panniculus present and Yes obesity Palpation (GI): Soft to palpation, nontender, no guarding, not rigid and No hepatosplenomegaly present Percussion: Yes normal to percussion Auscultation: normal bowel sounds Rectal Exam - Male: Yes deferred Skin General skin exam: no rashes or lesions noted, turgor normal, skin not dry, no jaundice, No spider nevi and no striae Rashes: no rashes Nails: normal Neuro General: oriented to person, oriented to place and oriented to time Cranial nerves: Yes Equal, round and reactive pupils present and Yes Normal hearing present Speech: No Abnormal speech present Extrem General: Yes normal to inspection, No clubbing, No cyanosis and No edema Psych Appearance: grossly normal and well kempt Mental Status: mental status grossly normal Speech and movement: Normal speech and movement present Affect: normal affect Attitude: cooperative Thought process: Normal thought process present and not confabulating Thought content: Normal thought content present Insight: Limited insight present (Psych) Judgement: Limited judgement present (Psych) Assessment & Plan Assessment & Plan (1) Irritable bowel syndrome with diarrhea: Code(s): K58.0 - Irritable bowel syndrome with diarrhea Plan: He has been having more diarrhea with fecal incontinence, but he has been drinking more beer at home and eating hot sauce. He also is worried about his finances since he stopped working after his stroke. He would like something for stress, and I direct him to his PCP. Will print FODMAP to help as well. Already had RAST. Food diary encouraged. No F/C/N/V, he also has been taking imodium which concerns me for SBO but he will try cutting back. He continues on Viberzi twice a day which is quite a strong medication and worries me in terms of possible obstruction. He also continues on his pantoprazole for GERD. ROV 6 weeks. (2) Erosive esophagitis: Code(s): K22.10 - Ulcer of esophagus without bleeding (3) GERD (gastroesophageal reflux disease): Code(s): K21.9 - Gastro-esophageal reflux disease without esophagitis Coding Level of Care Code Est Pt Level 3 (88498) Diagnoses Irritable bowel syndrome with diarrhea K58.0 Erosive esophagitis K22.10 GERD (gastroesophageal reflux disease) K21.9
[2023-03-11 12:40] VITALS: BP 141/101; PULSE 94; BMI 31.8
== END 2023-03-11 13:27 | disposition home or self-care (01) ==
PROVIDERS: PCP Internal Medicine; Visit Provider Nurse Practitioner
DX: K58.0 Irritable bowel syndrome with diarrhea (principal); K22.10 Ulcer of esophagus without bleeding; K21.9 Gastro-esophageal reflux disease without esophagitis
CPT/HCPCS: 99213

== ENCOUNTER → 2023-03-11 12:36 | Outpatient (BNVA) | payer OTHER, MEDICARE, SELFPAY | PROVIDERS: PCP Internal Medicine; Visit Provider Nurse Practitioner ==

== ENCOUNTER 2023-03-13 16:23 | Outpatient (AMB) | payer OTHER, MEDICARE, SELFPAY ==
--- NOTE | 2023-03-13 16:25 | A.OFFPC_ITS ---
Vital Signs 03/13/23 16:26 Height 5 ft 4 in Weight 186 lb BMI 31.9 BP 146/80 H Blood Pressure Location Lt brachial Position Sitting Pulse 79 Pulse Source Pulse Oximeter Pulse Oximetry (%) 96 Oxygen Delivery Method Room Air Intake Visit Reasons: Multiple Concerns Vocational Coordinator: Not Required per policy Accompanied by: Self / Same As Patient Allergies lisinopril Adverse Reaction (Intermediate, Verified 03/13/23 16:26) Diarrhea Shellfish Allergy (Mild, Uncoded 03/13/23 16:26) HIVES seafood Allergy (Unknown, Uncoded 03/13/23 16:26) hives Tobacco use date assessed: 08/11/22 Dental Screening Dental Screen Date: 03/13/23 Did you have a dental visit in the last 12 months?: Yes Did you have a dental problem in the last 6 months where you did not have access to dental care?: No Was dental information given to patient?: Patient has dentist HPI Multiple Concerns HPI Details 53-year-old obese male with a history of CVA and lupus anticoagulant positive GERD, hypercholesterolemia hypertension impaired glucose tolerance and recurrent major depression last seen in July 2022. Patient is up-to-date with colonoscopy November 2021. Coming in for follow-up. Review of the notes has also cardiomyopathy. Two thousand nineteen ejection fraction of 25 30% patient follows up with Gastroenterology for the diarrhea has irritable bowel syndrome and GERD patient has been drinking more beer and hot sauce patient on Viberzi and pantoprazole. [facility] Medical History On beta whit at home Generalized anxiety disorder Stroke Hypertensive emergency Right renal stone Cardiomyopathy Hypercholesterolemia Lupus anticoagulant positive Vitamin D deficiency GERD (gastroesophageal reflux disease) Insomnia History of CVA (cerebrovascular accident) Hypertension Surgical History H/O colonoscopy Hx of appendectomy Hx of brain surgery Family History Mother Cancer HTN (hypertension) Father Diabetes HTN (hypertension) Sister HTN (hypertension) Sister HTN (hypertension) Social History Housing: House Are you a primary director of health care marketing to a significant other at home: No Do you presently have visiting nurse or other home services: No Alcohol intake: former Patient Tobacco Use Status: Former Tobacco user Quit Date: 2006 Years Smoked: 1 e-Cigarette/Vaping Use: Never Used Second Hand Smoke Exposure: No Advance Directives Date on File: 06/05/22 service: No Current occupational status: disabled Cognitive needs: No Hearing needs: No Vision needs: No Questionnaire PHQ-9 Over the last 2 weeks, how often have you been bothered by any of the following problems? 1. Little interest or pleasure in doing things: not at all 2. Feeling down, depressed, or hopeless: not at all 3. Trouble falling or staying asleep, or sleeping too much: not at all 4. Feeling tired or having little energy: not at all 5. Poor appetite or overeating: not at all 6. Feeling bad about yourself - or that you are a failure or have let yourself or your family down: not at all 7. Trouble concentrating on things, such as reading the newspaper or watching television: not at all 8. Moving or speaking so slowly that other people could have noticed. Or the opposite - being so fidgety or restless that you have been moving around a lot more than usual: not at all 9. Thoughts that you would be better off or of hurting yourself in some way: not at all Total score: 0 Depression Screening Interpretation: Negative Depression Screening Done: Yes 93801 - PHQ-9 Billing: Yes Source: Developed by Drs. Neri Mayberry, Gibson Roman and colleagues, with an educational nilesh from [employer]. Thrive Questionnaire Date Thrive assessed: 06/30/22 AUDIT C Alcohol Use Questionnaire (AUDIT-C) 1. How often do you have a drink containing alcohol?: 2-4 times a month 2. How many drinks containing alcohol do you have on a typical day when you are drinking?: 1 or 2 3. How often do you have six or more drinks on one occasion?: Never Total Score: 2 LAMONTE-7 AMB Questionnaire LAMONTE-7 Date LAMONTE - 7 assessed: 06/30/22 Source: Developed by Drs. Neri Mayberry, Gibson Roman and colleagues, with an educational nilesh from [employer]. Physical exam (Primary Care) Vital Signs: Last Vital Signs Pulse 79 03/13/23 16:26 BP 146/80 H 03/13/23 16:26 Pulse Ox 96 03/13/23 16:26 Oxygen Delivery Method Room Air 03/13/23 16:26 BMI result Body Mass Index 31.9 Tobacco/Smoking Status: Tobacco use Status Tobacco use date assessed 08/11/22 03/13/23 16:26 Patient Tobacco Use Status Former Tobacco user 03/13/23 16:26 e-Cigarette/Vaping Use Never Used 03/13/23 16:26 PHQ-9: PHQ-9 Score PHQ-9: Total score 0 03/13/23 17:17 Depression Screening Interpretation: Negative Thrive Assessment: Date of Thrive Assessment Date Thrive assessed 06/30/22 03/13/23 16:26 Const General: alert; No acute distress Eyes Conjunctivae: conjunctivae normal Resp Auscultation: clear to auscultation bilaterally Cardio Rate: regular rate Rhythm: regular rhythm GI Inspection: Yes normal to inspection Extrem General: Yes normal to inspection and No edema Office Procedures Flu Questionnaire Does the patient have a severe egg allergy?: No Does the patient have severe life threatening allergies?: No Does the patient have a fever or illness today?: No Has the patient ever had Guillain-Green Syndrome?: No Has the patient ever had any past reaction to a flu shot?: No Immunizations flu vacc [id number] 6mos up(PF) 60 mcg(15 mcgx4)/0.5 mL IM syringe Performing Provider: Crystal Ellis MD Performing Location: [facility] Administered by: YUMIKO Aleman on 03/13/23 17:43 Dose Route Admin Location Dispensed Lot Number Expiration Date NDC [employer] 0.5 mL IM Right Deltoid 0.5 mL [id number] 11/15/23 39254-823-71 [employer] VIS Given Date VIS Provided VIS Publication Date 03/13/23 Single Vaccine 20 Eligibility Eligibility Date Funding Source Not [facility] Eligible 03/13/23 Private Assessment and Plan Assessment & Plan (1) History of CVA (cerebrovascular accident): Comment: Left cerebellar stroke 2006 brain surgery 09/2020 recent stroke. Code(s): Z86.73 - Personal history of transient ischemic attack (TIA), and cerebral infarction without residual deficits Plan: Control the cholesterol, weight, blood pressure and continue with aspirin (2) Cardiomyopathy: Code(s): I42.9 - Cardiomyopathy, unspecified Qualifiers: Cardiomyopathy type: unspecified Qualified Code(s): I42.9 - Cardiomyopathy, unspecified Plan: Will request for an echocardiogram for follow-up (3) Hypercholesterolemia: Code(s): E78.00 - Pure hypercholesterolemia, unspecified Plan: Avoid fried foods, chicken skin, eggs, butter margarine, pastries and meat. Be it pork or beef they have a lot of cholesterol LDL goal of less than 70 and triglyceride of less than 150 patient is on atorvastatin 80 mg once a day (4) GERD (gastroesophageal reflux disease): Code(s): K21.9 - Gastro-esophageal reflux disease without esophagitis Plan: Avoid the foods that causes that usually spicy foods, tomato products, juices, coffee, soda and foods that your sensitive to. After eating do not lie down, allow 3-4 hours before in lie down. And keep the head of bed above 30 degrees to avoid the acid from going up. On pantoprazole (5) Lupus anticoagulant positive: Code(s): R76.0 - Raised antibody titer Plan: Continue with anticoagulation on aspirin (6) Hypertension: Comment: Echocardiogram February 2019 EF 25-30% weak RV October 2021- The left ventricular systolic function is low normal. The calculated ejection fraction is 54% by biplane method. - There is mildly decreased right ventricular systolic function. - No obvious valvular pathology seen on this study. Code(s): I10 - Essential (primary) hypertension Qualifiers: Hypertension type: essential hypertension Qualified Code(s): I10 - Essential (primary) hypertension Plan: Continue with blood pressure medication. Decrease salt intake and exercise on losartan hydrochlorothiazide 100/25 metoprolol 50 mg twice a day (7) Recurrent major depression: Code(s): F33.9 - Major depressive disorder, recurrent, unspecified Plan: Continue with medication (8) Impaired fasting blood sugar: Code(s): R73.01 - Impaired fasting glucose Plan: Decrease the amount of carbohydrate intake, pasta, bread, rice and potatoes are all sugar and that is aside from all the sweet stuff, remember that fruits are good but they are Sweet also. (9) Irritable bowel syndrome: Code(s): K58.9 - Irritable bowel syndrome without diarrhea Plan: Patient follows up with Gastroenterology and has been placed on [facility] Orders: Orders Influenza [id number] Immunization Today Z23 - Encounter for immunization Referrals Psychiatry Referral F33.9 - Major depressive disorder, recurrent, unspecified Medications: New lorazepam 0.5 mg PO BEDTIME PRN 14 tabs 0RF agitation 30 days F33.9 - Major depressive disorder, recurrent, unspecified Changed From sertraline 25 mg PO DAILY 30 days 90 tabs 2RF F33.9 - Major depressive disorder, recurrent, unspecified To sertraline 50 mg PO DAILY 30 tabs 2RF 30 days F33.9 - Major depressive disorder, recurrent, unspecified Coding Level of Care Code Est Pt Level 4 (35936) Diagnoses History of CVA (cerebrovascular accident) Z86.73 Cardiomyopathy, unspecified type I42.9 Cardiomyopathy type: unspecified Hypercholesterolemia E78.00 GERD (gastroesophageal reflux disease) K21.9 Lupus anticoagulant positive R76.0 Essential hypertension I10 Hypertension type: essential hypertension Recurrent major depression F33.9 Impaired fasting blood sugar R73.01 Irritable bowel syndrome K58.9
[2023-03-13 16:26] VITALS: BP 146/80; PULSE 79; O2SAT 96; BMI 31.9
== END 2023-03-13 17:36 | disposition home or self-care (01) ==
PROVIDERS: PCP Internal Medicine; Visit Provider Internal Medicine
DX: E78.00 Pure hypercholesterolemia, unspecified (principal); I42.9 Cardiomyopathy, unspecified; F33.9 Major depressive disorder, recurrent, unspecified; Z86.73 Personal history of transient ischemic attack (TIA), and cerebral infarction without residual deficits; Z23 Encounter for immunization; K21.9 Gastro-esophageal reflux disease without esophagitis; R76.0 Raised antibody titer; I10 Essential (primary) hypertension; R73.01 Impaired fasting glucose; K58.9 Irritable bowel syndrome, unspecified
CPT/HCPCS: 90471; 90686; 99214

== ENCOUNTER 2023-04-02 13:11 | Outpatient (REF) | payer OTHER, MEDICARE, SELFPAY ==
[2023-04-02 13:26] LABS: MANUAL DIFF FLAG NO
[2023-04-02 13:41] LABS: Basophils Absolute Auto 0.1 X10*3/uL (0.0-0.2); Basophils Percent Auto 0.7 % (0-2); Eosinophils Absolute Auto 0.1 X10*3/uL (0.0-0.4); Eosinophils Percent Auto 1.6 % (0-4); Hematocrit 49.5 % (42.0-52.0); Hemoglobin 16.6 g/dl (14.0-18.0); Imm Gran Abs Auto 0.02 X10*3/uL (0.00-0.03); Imm Gran Pct Auto 0.3 % (0.0-0.4); Lymphocytes Absolute Auto 1.6 X10*3/uL (1.2-4.9); Lymphocytes Percent Auto 21.2 % (20-40); Mean Corpuscular HGB Conc 33.5 g/dl (31.0-36.0); Mean Corpuscular Hemoglobin 30.6 pg (27.0-33.0); Mean Corpuscular Volume 91.3 fL (80.0-98.0); Mean Platelet Volume 9.5 fL (9.4-12.4); Monocytes Absolute Auto 0.5 X10*3/uL (0.1-1.2); Monocytes Percent Auto 6.4 % (2-11); Neutrophils Absolute Auto 5.2 x10*3/uL (2.0-8.3); Neutrophils Percent Auto 69.8 % (45-73); Platelet Count 291 X10*3/uL (160-400); Red Blood Count 5.42 X10*6/uL (4.60-5.80); Red Cell Distribution Width 12.1 % (11.0-16.0); White Blood Count 7.5 X10*3/uL (4.8-10.8)
[2023-04-02 14:17] LABS: Alanine Aminotransferase 53 U/L (0-40); Albumin Level 4.1 g/dL (3.5-5.0); Alkaline Phosphatase 95 U/L (39-117); Anion Gap 12 (12-20); Aspartate Amino Transferase 30 U/L (5-37); Bilirubin Total 0.6 mg/dL (0.0-1.0); Blood Urea Nitrogen 18 mg/dL (9-16); Calcium 9.6 mg/dL (8.4-10.2); Carbon Dioxide 28 mmol/L (22-29); Chloride 105 mmol/L (96-108); Cholesterol 145 mg/dL (<200); Estimated Glomerular Filt Rate 57; Glucose Random 97 mg/dL (60-115); HDL Cholesterol 33 mg/dL (>40); LDL Cholesterol Calculated 95 mg/dL (<100); Potassium 3.6 mmol/L (3.3-5.1); Sodium 141 mmol/L (135-145); Total Protein 7.8 g/dL (6.5-8.0); Triglycerides 86 mg/dL (<150)
[2023-04-02 14:26] LABS: Free T4 (Free Thyroxine) 1.14 ng/dL (0.71-1.85); Thyroid Stimulating Hormone 1.41 uIU/mL (0.32-4.0); Vitamin D 25-OH Total 27.6 ng/mL (>30)
[2023-04-02 14:41] LABS: Folate 6.9 ng/mL (> or = 4.0); Prostate Specific Antigen Scr 2.21 ng/mL (<0.05-4.0); Vitamin B12 388 pg/mL (200-900)
== END 2023-04-02 13:12 | disposition home or self-care (01) ==
LOC: HO.LAB 13:11
PROVIDERS: PCP Internal Medicine; Visit Provider Internal Medicine
DX: E78.00 Pure hypercholesterolemia, unspecified (principal); I10 Essential (primary) hypertension; Z86.73 Personal history of transient ischemic attack (TIA), and cerebral infarction without residual deficits; Z12.5 Encounter for screening for malignant neoplasm of prostate; E55.9 Vitamin D deficiency, unspecified; N28.9 Disorder of kidney and ureter, unspecified
CPT/HCPCS: 36415; 80053; 80061; 82306; 82607; 82746; 84153; 84439; 84443; 85025

== ENCOUNTER 2023-04-22 12:16 | Outpatient (AMB) | payer OTHER, MEDICARE, SELFPAY ==
--- NOTE | 2023-04-22 12:18 | MHC.OFFVIS ---
Intake Vital Signs 04/22/23 12:19 Height 5 ft 4 in Weight 185 lb 3.013 oz BMI 31.8 BP 147/119 H Blood Pressure Location Lt brachial Position Sitting Pulse 105 H Intake Visit Reasons: 6 weekfollow up Intake Note: Patient presents to in office visit today in follow up of IBS with diarrhea. CC: Patient reports he is doing well but still has occasional diarrhea. Denies any new GI concerns or symptoms today. Security Incident Response Engineer Required: No Accompanied by: Allergies lisinopril Adverse Reaction (Intermediate, Verified 04/22/23 12:22) Diarrhea Shellfish Allergy (Mild, Uncoded 03/13/23 16:26) HIVES seafood Allergy (Unknown, Uncoded 03/13/23 16:26) hives HPI 6 weekfollow up HPI Details Assessment & Plan (1) Irritable bowel syndrome with diarrhea: Code(s): K58.0 - Irritable bowel syndrome with diarrhea Plan: He has been having more diarrhea with fecal incontinence, but he has been drinking more beer at home and eating hot sauce. He also is worried about his finances since he stopped working after his stroke. He would like something for stress, and I direct him to his PCP. Will print FODMAP to help as well. Already had RAST. Food diary encouraged. No F/C/N/V, he also has been taking imodium which concerns me for SBO but he will try cutting back. He continues on Viberzi twice a day which is quite a strong medication and worries me in terms of possible obstruction. He also continues on his pantoprazole for GERD. ROV 6 weeks. (2) Erosive esophagitis: Code(s): K22.10 - Ulcer of esophagus without bleeding (3) GERD (gastroesophageal reflux disease): Code(s): K21.9 - Gastro-esophageal reflux disease without esophagitis TODAY'S VISIT He tells me that he has been taking the Viberzi twice a day at 100 mg (the maximum dose) however he still has to take Imodium about every 3 days 2 tablets for that day. He wants to try different medication busy does not feel of the Viberzi is giving him sufficient control. We could consider trying to do a PA and going to Lotronex but 1st I think will try just using scheduled Imodium. Will start with 1 to mg tablet 3 times a day and titrate to affect her side effect. I tell him that he should end can adjust the dose depending on how his bowels react. His pantoprazole continues to control his GERD well. Return office visit in 6 weeks to evaluate his response. He is quite aware that we he needs to stop the Viberzi during this trial. [facility] Medical History (Updated 04/22/23 @ 12:29 by AWA Diaz) On beta whit at home Generalized anxiety disorder Stroke Hypertensive emergency Right renal stone Cardiomyopathy Hypercholesterolemia Lupus anticoagulant positive Vitamin D deficiency GERD (gastroesophageal reflux disease) Insomnia History of CVA (cerebrovascular accident) Hypertension Surgical History H/O colonoscopy Hx of appendectomy Hx of brain surgery Family History Mother Cancer HTN (hypertension) Father Diabetes HTN (hypertension) Sister HTN (hypertension) Sister HTN (hypertension) Social History Housing: House Are you a primary manager urgent care to a significant other at home: No Do you presently have visiting nurse or other home services: No Alcohol intake: former Patient Tobacco Use Status: Former Tobacco user Quit Date: 2006 Years Smoked: 1 e-Cigarette/Vaping Use: Never Used Second Hand Smoke Exposure: No Advance Directives Date on File: 06/05/22 service: No Current occupational status: disabled Cognitive needs: No Hearing needs: No Vision needs: No Review of Systems Const Denies fatigue, Denies fever(s), Denies night sweats, Denies poor appetite and Denies weight loss ENT Reports Normal hearing present, Denies dental pain, Denies dysphagia, Denies hearing loss, Denies mouth pain, Denies odynophagia, Denies throat swelling, Denies tongue swelling and Reports other (Dentition adequate) Card Reports no additional complaints Resp Reports no additional complaints GI Denies abdominal pain, Denies melena, Denies bloating, Denies hematochezia, Denies constipation, Denies GI cramping, Denies dysphagia, Denies excessive flatus, Denies early satiety, Reports heartburn, Reports diarrhea, Denies nausea, Denies odynophagia, Denies vomiting and Denies hematemesis Skin/Breast Denies pruritus, Denies lesions, Denies rash and Denies jaundice Neuro Reports Normal hearing present and Denies Abnormal speech present Endo Denies fatigue Aller/Immun Denies throat swelling and Denies tongue swelling Physical Exam Vital Signs: Last Vital Signs Pulse 105 H 04/22/23 12:19 BP 147/119 H 04/22/23 12:19 BMI result Body Mass Index 31.8 Const General: cooperative, no acute distress, well developed and well groomed Nutritional Appearance: well nourished and obese Orientation/consciousness: oriented to person, oriented to place and oriented to time Limitations: No language barrier HEENT Head: Yes normocephalic and Yes atraumatic Eyes General: appearance normal, both eyes and all related structures Pupils: Equal, round and reactive pupils present Neck Neck: Yes normal visual inspection and Yes no lymphadenopathy Thyroid: Thyroid normal Resp Effort & Inspection: normal respiratory effort and able to speak in complete sentences Auscultation: clear to auscultation bilaterally Cardio Rate: regular rate Rhythm: regular rhythm Heart sounds: Normal, physiologic split S2 sound present Peripheral pulses: radial pulses present and posterior tibial pulses present GI Inspection: No distended, No Abdominal panniculus present and Yes obesity Palpation (GI): Soft to palpation, nontender, no guarding, not rigid and No hepatosplenomegaly present Percussion: Yes normal to percussion Auscultation: normal bowel sounds Rectal Exam - Male: Yes deferred Skin General skin exam: no rashes or lesions noted, turgor normal, skin not dry, no jaundice, No spider nevi and no striae Rashes: no rashes Nails: normal Neuro General: oriented to person, oriented to place and oriented to time Cranial nerves: Yes Equal, round and reactive pupils present and Yes Normal hearing present Speech: No Abnormal speech present Extrem General: Yes normal to inspection, No clubbing, No cyanosis and No edema Psych Appearance: grossly normal and well kempt Mental Status: mental status grossly normal Speech and movement: Normal speech and movement present Affect: normal affect Attitude: cooperative Thought process: Normal thought process present and not confabulating Thought content: Normal thought content present Insight: Limited insight present (Psych) Judgement: Limited judgement present (Psych) Assessment & Plan Assessment & Plan (1) Irritable bowel syndrome with diarrhea: Code(s): K58.0 - Irritable bowel syndrome with diarrhea (2) GERD (gastroesophageal reflux disease): Code(s): K21.9 - Gastro-esophageal reflux disease without esophagitis Plan He tells me that he has been taking the Viberzi twice a day at 100 mg (the maximum dose) however he still has to take Imodium about every 3 days 2 tablets for that day. He wants to try different medication busy does not feel of the Viberzi is giving him sufficient control. We could consider trying to do a PA and going to Lotronex but 1st I think will try just using scheduled Imodium. Will start with 1 to mg tablet 3 times a day and titrate to affect her side effect. I tell him that he should end can adjust the dose depending on how his bowels react. His pantoprazole continues to control his GERD well. Return office visit in 6 weeks to evaluate his response. He is quite aware that we he needs to stop the Viberzi during this trial. Medications: New loperamide (Imodium A-D) d/c Viberzi 2 mg PO TID 90 caps 6RF loose stool K58.0 - Irritable bowel syndrome with diarrhea On Hold eluxadoline (Viberzi) Hold Comment: Doctor's Order 100 mg PO BID 60 tabs 5RF K58.0 - Irritable bowel syndrome with diarrhea Coding Level of Care Code Est Pt Level 3 (69114) Diagnoses Irritable bowel syndrome with diarrhea K58.0 GERD (gastroesophageal reflux disease) K21.9
[2023-04-22 12:19] VITALS: BP 147/119; PULSE 105; BMI 31.8
== END 2023-04-22 13:18 | disposition home or self-care (01) ==
PROVIDERS: PCP Internal Medicine; Visit Provider Nurse Practitioner
DX: K58.0 Irritable bowel syndrome with diarrhea (principal); K21.9 Gastro-esophageal reflux disease without esophagitis
CPT/HCPCS: 99213

== ENCOUNTER → 2023-04-22 12:16 | Outpatient (BNVA) | payer OTHER, MEDICARE, SELFPAY | PROVIDERS: PCP Internal Medicine; Visit Provider Nurse Practitioner ==

== ENCOUNTER 2023-05-06 11:57 | Outpatient (AMB) | payer OTHER, MEDICARE, SELFPAY ==
--- NOTE | 2023-05-06 12:08 | A.OFFVIS_ITS ---
Intake Vital Signs 05/06/23 12:20 Height 5 ft 4 in Weight 182 lb 1.629 oz BMI 31.3 BP 119/79 Blood Pressure Location Lt brachial Position Sitting Pulse 58 Intake Visit Reasons: Follow up 3 weeks Intake Note: Patient presents to in office visit today in follow up of IBS with diarrhea. CC: Patient reports he is doing well and loperamide has been working well. Denies any new GI concerns or symptoms today. 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 Accompanied by: Self / Same As Patient Allergies lisinopril Adverse Reaction (Intermediate, Verified 05/12/23 14:02) Diarrhea Shellfish Allergy (Mild, Uncoded 03/13/23 16:26) HIVES seafood Allergy (Unknown, Uncoded 03/13/23 16:26) hives HPI Follow up 3 weeks HPI Details Assessment & Plan (1) Irritable bowel syndrome with diarrh ea: Code(s): K58.0 - Irritable bowel syndrome with diarrhea (2) GERD (gastroesophageal reflux diseas e): Code(s): K21.9 - Gastro-esophageal reflux disease without esophagitis Plan He tells me that he has been taking the Viberzi twice a day at 100 mg (the maximum dose) however he still has to take Imodium about every 3 days 2 tablets for that day. He wants to try different medication busy does not feel of the Viberzi is giving him sufficient control. We could consider trying to do a PA and going to Lotronex but 1st I think will try just using scheduled Imodium. Will start with 1 to mg tablet 3 times a day and titrate to affect her side effect. I tell him that he should end can adjust the dose depending on how his bowels react. His pantoprazole continues to control his GERD well. Return office visit in 6 weeks to evaluate his response. He is quite aware that we he needs to stop the Viberzi during this trial. Medications: New loperamide (Imodiu m A-D) d/c Vibe rzi 2 mg PO TID 90 ca ps 6RF loose stool K58.0 - Irritable bowel syndrome wit h diarrhea On Hold eluxadoline (Viber zi) Hold Commen t: Doctor's Order 100 mg PO BID 60 tabs 5RF K58.0 - Irritable bowel syndrome wit h diarrhea TODAY'S VISIT He is doing very well on the loperamide 3 times a day scheduled and is satisfied. This is controlling his diarrhea. He also continues on pantoprazole with good control of his GERD. He is now satisfied with his GI regimen. ROV 6 mos. PFSH Medical History On beta whit at home Generalized anxiety disorder Stroke Hypertensive emergency Right renal stone Cardiomyopathy Hypercholesterolemia Lupus anticoagulant positive Vitamin D deficiency GERD (gastroesophageal reflux disease) Insomnia History of CVA (cerebrovascular accident) Hypertension Surgical History H/O colonoscopy Hx of appendectomy Hx of brain surgery Family History Mother Cancer HTN (hypertension) Father Diabetes HTN (hypertension) Sister HTN (hypertension) Sister HTN (hypertension) Social History Housing: House Are you a primary primary care pediatrician to a significant other at home: No Do you presently have visiting nurse or other home services: No Alcohol intake: former Patient Tobacco Use Status: Former Tobacco user Quit Date: 2006 Years Smoked: 1 e-Cigarette/Vaping Use: Never Used Second Hand Smoke Exposure: No Advance Directives Date on File: 06/05/22 service: No Current occupational status: disabled Cognitive needs: No Hearing needs: No Vision needs: No Review of Systems Const Denies fatigue, Denies fever(s), Denies night sweats, Denies poor appetite and Denies weight loss ENT Reports Normal hearing present, Denies dental pain, Denies dysphagia, Denies hearing loss, Denies mouth pain, Denies odynophagia, Denies throat swelling, Denies tongue swelling and Reports other (Dentition adequate) Card Reports no additional complaints Resp Reports no additional complaints GI Denies abdominal pain, Denies melena, Denies bloating, Denies hematochezia, Denies constipation, Denies GI cramping, Denies dysphagia, Denies excessive flatus, Denies early satiety, Reports heartburn, Denies diarrhea, Reports loose stools, Denies nausea, Denies odynophagia, Denies vomiting and Denies hematemesis Skin/Breast Denies pruritus, Denies lesions, Denies rash and Denies jaundice Neuro Reports Normal hearing present and Denies Abnormal speech present Endo Denies fatigue Aller/Immun Denies throat swelling and Denies tongue swelling Physical Exam Vital Signs: Last Vital Signs Pulse 58 05/06/23 12:20 BP 119/79 05/06/23 12:20 BMI result Body Mass Index 31.3 Const General: cooperative, no acute distress, well developed and well groomed Nutritional Appearance: well nourished and obese Orientation/consciousness: oriented to person, oriented to place and oriented to time Limitations: No language barrier HEENT Head: Yes normocephalic and Yes atraumatic Eyes General: appearance normal, both eyes and all related structures Pupils: Equal, round and reactive pupils present Neck Neck: Yes normal visual inspection and Yes no lymphadenopathy Thyroid: Thyroid normal Resp Effort & Inspection: normal respiratory effort and able to speak in complete s entences Auscultation: clear to auscultation bilaterally Cardio Rate: regular rate Rhythm: regular rhythm Heart sounds: Normal, physiologic split S2 sound present Peripheral pulses: radial pulses present and posterior tibial pulses present GI Inspection: No distended, No Abdominal panniculus present and Yes obesity Palpation (GI): Soft to palpation, nontender, no guarding, not rigid and No hepatosplenomegaly present Percussion: Yes normal to percussion Auscultation: normal bowel sounds Rectal Exam - Male: Yes deferred Skin General skin exam: no rashes or lesions noted, turgor normal, skin not dry, no jaundice, No spider nevi and no striae Rashes: no rashes Nails: normal Neuro General: oriented to person, oriented to place and oriented to time Cranial nerves: Yes Equal, round and reactive pupils present and Yes Normal hearing present Speech: No Abnormal speech present Extrem General: Yes normal to inspection, No clubbing, No cyanosis and No edema Psych Appearance: grossly normal and well kempt Mental Status: mental status grossly normal Speech and movement: Normal speech and movement present Affect: normal affect Attitude: cooperative Thought process: Normal thought process present and not confabulating Thought content: Normal thought content present Insight: Limited insight present (Psych) Judgement: Limited judgement present (Psych) Assessment & Plan Assessment & Plan (1) Irritable bowel syndrome with diarrhea: Code(s): K58.0 - Irritable bowel syndrome with diarrhea (2) Erosive esophagitis: Code(s): K22.10 - Ulcer of esophagus without bleeding (3) GERD (gastroesophageal reflux disease): Code(s): K21.9 - Gastro-esophageal reflux disease without esophagitis Plan He is doing very well on the loperamide 3 times a day scheduled and is satisfied. This is controlling his diarrhea. He also continues on pantoprazole with good control of his GERD. He is now satisfied with his GI regimen. ROV 6 mos. Coding Level of Care Code Est Pt Level 3 (17822) Diagnoses Irritable bowel syndrome with diarrhea K58.0 Erosive esophagitis K22.10 GERD (gastroesophageal reflux disease) K21.9
[2023-05-06 12:20] VITALS: BP 119/79; PULSE 58; BMI 31.3
== END 2023-05-06 13:56 | disposition home or self-care (01) ==
PROVIDERS: PCP Internal Medicine; Visit Provider Nurse Practitioner
DX: K58.0 Irritable bowel syndrome with diarrhea (principal); K22.10 Ulcer of esophagus without bleeding; K21.9 Gastro-esophageal reflux disease without esophagitis
CPT/HCPCS: 99213

== ENCOUNTER → 2023-05-06 11:57 | Outpatient (BNVA) | payer OTHER, MEDICARE, SELFPAY | PROVIDERS: PCP Internal Medicine; Visit Provider Nurse Practitioner ==

== ENCOUNTER 2023-05-12 14:00 | Outpatient (AMB) | payer OTHER, MEDICARE, SELFPAY ==
[2023-05-12 14:02] VITALS: BP 116/80; PULSE 67; O2SAT 97; BMI 30.9
--- NOTE | 2023-05-12 14:02 | A.OFFPC_ITS ---
Vital Signs 05/12/23 14:02 Height 5 ft 4 in Weight 180 lb 4 oz BMI 30.9 BP 116/80 Blood Pressure Location Lt brachial Position Sitting Pulse 67 Pulse Source Pulse Oximeter Pulse Oximetry (%) 97 Oxygen Delivery Method Room Air Intake Visit Reasons: Hypertension Squirrel Man Required: No Accompanied by: Self / Same As Patient Allergies lisinopril Adverse Reaction (Intermediate, Verified 05/12/23 14:02) Diarrhea Shellfish Allergy (Mild, Uncoded 03/13/23 16:26) HIVES seafood Allergy (Unknown, Uncoded 03/13/23 16:26) hives Medication List - Last Reconciled 05/12/23 by Crystal Ellis MD acetaminophen-codeine 300-30 mg 1 tab PO Q8H PRN aspirin 81 mg PO DAILY 90 days atorvastatin 80 mg PO BEDTIME eluxadoline (Viberzi) 100 mg PO BID loperamide (Imodium A-D) 2 mg PO TID lorazepam 0.5 mg PO BEDTIME PRN 30 days losartan-hydrochlorothiazide 100-25 mg 1 tab PO DAILY metoprolol tartrate 50 mg See Protocol PO Q12H 90 days olanzapine 5 mg PO BEDTIME 90 days pantoprazole 40 mg PO DAILY sertraline 50 mg PO DAILY 30 days Tobacco use date assessed: 08/11/22 Dental Screening Dental Screen Date: 05/12/23 Did you have a dental visit in the last 12 months?: Yes Did you have a dental problem in the last 6 months where you did not have access to dental care?: No Was dental information given to patient?: Patient has dentist HPI Hypertension HPI Details 53-year-old obese male with a history of CVA cardiomyopathy hypercholesterolemia GERD lupus anticoagulant positive on aspirin hypertension recurrent major depression impaired glucose tolerance last seen in February 2023. Patient is here for follow-up up-to-date with colonoscopy November 2021. Patient follows up with Gastroenterology on Viberzi twice a day occasionally takes Imodium was looking for an alternative like Lotronex continuing on pantoprazole. [facility] Medical History On beta whit at home Generalized anxiety disorder Stroke Hypertensive emergency Right renal stone Cardiomyopathy Hypercholesterolemia Lupus anticoagulant positive Vitamin D deficiency GERD (gastroesophageal reflux disease) Insomnia History of CVA (cerebrovascular accident) Hypertension Surgical History H/O colonoscopy Hx of appendectomy Hx of brain surgery Family History Mother Cancer HTN (hypertension) Father Diabetes HTN (hypertension) Sister HTN (hypertension) Sister HTN (hypertension) Social History Housing: House Are you a primary urgent care technician to a significant other at home: No Do you presently have visiting nurse or other home services: No Alcohol intake: former Patient Tobacco Use Status: Former Tobacco user Quit Date: 2006 Smoked: 1 e-Cigarette/Vaping Use: Never Used Second Hand Smoke Exposure: No Advance Directives Date on File: 06/05/22 service: No Current occupational status: disabled Cognitive needs: No Hearing needs: No Vision needs: No Questionnaire Thrive Questionnaire Date Thrive assessed: 06/30/22 LAMONTE-7 AMB Questionnaire LAMONTE-7 Date LAMONTE - 7 assessed: 06/30/22 Source: Developed by Drs. Neri Mayberry, Marisol Gerber, Gibson Zaragoza and colleagues, with an educational nilesh from [employer]. Physical exam (Primary Care) Vital Signs: Last Vital Signs Pulse 67 05/12/23 14:02 BP 116/80 05/12/23 14:02 Pulse Ox 97 05/12/23 14:02 Oxygen Delivery Method Room Air 05/12/23 14:02 BMI result Body Mass Index 30.9 Tobacco/Smoking Status: Tobacco use Status Tobacco use date assessed 08/11/22 05/12/23 14:07 Patient Tobacco Use Status Former Tobacco user 05/12/23 14:07 e-Cigarette/Vaping Use Never Used 05/12/23 14:07 Thrive Assessment: Date of Thrive Assessment Date Thrive assessed 06/30/22 05/12/23 14:07 Const General: alert; No acute distress Eyes Conjunctivae: conjunctivae normal Resp Auscultation: clear to auscultation bilaterally Cardio Rate: regular rate Rhythm: regular rhythm GI Inspection: Yes normal to inspection Extrem General: Yes normal to inspection and No edema Assessment and Plan Assessment & Plan (1) GERD (gastroesophageal reflux disease): Code(s): K21.9 - Gastro-esophageal reflux disease without esophagitis Plan: Avoid the foods that causes that usually spicy foods, tomato products, juices, coffee, soda and foods that your sensitive to. After eating do not lie down, allow 3-4 hours before in lie down. And keep the head of bed above 30 degrees to avoid the acid from going up. (2) Hypercholesterolemia: Code(s): E78.00 - Pure hypercholesterolemia, unspecified Plan: Avoid fried foods, chicken skin, eggs, butter margarine, pastries and meat. Be it pork or beef they have a lot of cholesterol LDL goal of less than 70 and triglyceride of less than 150. Patient on atorvastatin 80 mg once a day (3) Cardiomyopathy: Code(s): I42.9 - Cardiomyopathy, unspecified Qualifiers: Cardiomyopathy type: unspecified Qualified Code(s): I42.9 - Cardiomyopathy, unspecified Plan: Continue with controlling the blood pressure and cholesterol (4) History of CVA (cerebrovascular accident): Comment: Left cerebellar stroke 2006 brain surgery 09/2020 recent stroke. Code(s): Z86.73 - Personal history of transient ischemic attack (TIA), and cerebral infarction without residual deficits Plan: Continue with controlling blood pressure and cholesterol, on aspirin 81 mg once a day (5) Hypertension: Comment: Echocardiogram February 2019 EF 25-30% weak RV October 2021- The left ventricular systolic function is low normal. The calculated ejection fraction is 54% by biplane method. - There is mildly decreased right ventricular systolic function. - No obvious valvular pathology seen on this study. Code(s): I10 - Essential (primary) hypertension Qualifiers: Hypertension type: essential hypertension Qualified Code(s): I10 - Essential (primary) hypertension Plan: Continue with blood pressure medication. Decrease salt intake and exercise patient takes losartan hydrochlorothiazide 100/25 and metoprolol tartrate 50 mg once a day (6) Recurrent major depression: Code(s): F33.9 - Major depressive disorder, recurrent, unspecified Plan: Continue with therapy (7) Renal insufficiency: Code(s): N28.9 - Disorder of kidney and ureter, unspecified Plan: Keep well hydrated avoid NSAIDs Orders: Orders CA echo transthoracic complete Today I42.9 - Cardiomyopathy, unspecified Coding Level of Care Code Est Pt Level 4 (75823) Diagnoses GERD (gastroesophageal reflux disease) K21.9 Hypercholesterolemia E78.00 Cardiomyopathy, unspecified type I42.9 Cardiomyopathy type: unspecified History of CVA (cerebrovascular accident) Z86.73 Essential hypertension I10 Hypertension type: essential hypertension Recurrent major depression F33.9 Renal insufficiency N28.9
== END 2023-05-12 14:47 | disposition home or self-care (01) ==
PROVIDERS: PCP Internal Medicine; Visit Provider Internal Medicine
DX: K21.9 Gastro-esophageal reflux disease without esophagitis (principal); I42.9 Cardiomyopathy, unspecified; F33.9 Major depressive disorder, recurrent, unspecified; E78.00 Pure hypercholesterolemia, unspecified; Z86.73 Personal history of transient ischemic attack (TIA), and cerebral infarction without residual deficits; I10 Essential (primary) hypertension; N28.9 Disorder of kidney and ureter, unspecified
CPT/HCPCS: 99214

== ENCOUNTER 2023-07-03 09:43 | Outpatient (AMB) | payer OTHER, MEDICARE, SELFPAY ==
--- NOTE | 2023-07-03 09:56 | A.OFFVIS_ITS ---
Intake Vital Signs 07/03/23 10:02 Height 5 ft 4 in Weight 185 lb 3.013 oz BMI 31.8 BP 132/87 Blood Pressure Location Rt brachial Position Sitting Pulse 59 Intake Visit Reasons: 6 mnth f/u Intake Note: Patient presents to in office visit today in follow up of IBS with diarrhea CC: Patient reports he is doing well and denies any new GI concerns or symptoms today. 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 Accompanied by: Self / Same As Patient Allergies lisinopril Adverse Reaction (Intermediate, Verified 07/03/23 10:04) Diarrhea Shellfish Allergy (Mild, Uncoded 03/13/23 16:26) HIVES seafood Allergy (Unknown, Uncoded 03/13/23 16:26) hives HPI 6 mnth f/u HPI Details Assessment & Plan (1) Irritable bowel syndrome with diarrh ea: Code(s): K58.0 - Irritable bowel syndrome with diarrhea (2) Erosive esophagitis: Code(s): K22.10 - Ulcer of esophagus without bleeding (3) GERD (gastroesophageal reflux diseas e): Code(s): K21.9 - Gastro-esophageal reflux disease without esophagitis Plan He is doing very well on the loperamide 3 times a day scheduled and is satisfied. This is controlling his diarrhea. He also continues on pantoprazole with good control of his GERD. He is now satisfied with his GI regimen. ROV 6 mos. TODAY'S VISIT He is doing very well on the loperamide 3 times a day scheduled and is satisfied. This is controlling his diarrhea. He also continues on pantoprazole with good control of his GERD. He continues to be very satisfied with his GI regimen. Return office visit in 6 months. [facility] Medical History On beta whit at home Generalized anxiety disorder Stroke Hypertensive emergency Right renal stone Cardiomyopathy Hypercholesterolemia Lupus anticoagulant positive Vitamin D deficiency GERD (gastroesophageal reflux disease) Insomnia History of CVA (cerebrovascular accident) Hypertension Surgical History H/O colonoscopy Hx of appendectomy Hx of brain surgery Family History Mother Cancer HTN (hypertension) Father Diabetes HTN (hypertension) Sister HTN (hypertension) Sister HTN (hypertension) Social History Housing: House Are you a primary critical care registered nurse to a significant other at home: No Do you presently have visiting nurse or other home services: No Alcohol intake: former Patient Tobacco Use Status: Former Tobacco user Quit Date: 2006 Smoked: 1 e-Cigarette/Vaping Use: Never Used Second Hand Smoke Exposure: No Advance Directives Date on File: 06/05/22 service: No Current occupational status: disabled Cognitive needs: No Hearing needs: No Vision needs: No Review of Systems Const Denies fatigue, Denies fever(s), Denies night sweats, Denies poor appetite and Denies weight loss ENT Reports Normal hearing present, Denies dental pain, Denies dysphagia, Denies hearing loss, Denies mouth pain, Denies odynophagia, Denies throat swelling, Denies tongue swelling and Reports other (Dentition adequate) Card Reports no additional complaints Resp Reports no additional complaints GI Details: Denies abdominal pain, Denies melena, Denies bloating, Denies hematochezia, Reports constipation, Denies GI cramping, Denies dysphagia, Denies excessive flatus, Denies early satiety, Reports heartburn, Denies diarrhea, Denies nausea, Denies odynophagia, Denies vomiting and Denies hematemesis Skin/Breast Denies pruritus, Denies lesions, Denies rash and Denies jaundice Neuro Reports Normal hearing present and Denies Abnormal speech present Endo Denies fatigue Aller/Immun Denies throat swelling and Denies tongue swelling Physical Exam Vital Signs: Last Vital Signs Pulse 59 07/03/23 10:02 BP 132/87 07/03/23 10:02 BMI result Body Mass Index 31.8 Const General: cooperative, no acute distress, well developed and well groomed Nutritional Appearance: well nourished and obese Orientation/consciousness: oriented to person, oriented to place and oriented to time Limitations: No language barrier HEENT Head: Yes normocephalic and Yes atraumatic Eyes General: appearance normal, both eyes and all related structures Pupils: Equal, round and reactive pupils present Neck Neck: Yes normal visual inspection and Yes no lymphadenopathy Thyroid: Thyroid normal Resp Effort & Inspection: normal respiratory effort and able to speak in complete sentences Auscultation: clear to auscultation bilaterally Cardio Rate: regular rate Rhythm: regular rhythm Heart sounds: Normal, physiologic split S2 sound present Peripheral pulses: radial pulses present and posterior tibial pulses present GI Inspection: No distended, No Abdominal panniculus present and Yes obesity Palpation (GI): Soft to palpation, nontender, no guarding, not rigid and No hepatosplenomegaly present Percussion: Yes normal to percussion Auscultation: normal bowel sounds Rectal Exam - Male: Yes deferred Skin General skin exam: no rashes or lesions noted, turgor normal, skin not dry, no jaundice, No spider nevi and no striae Rashes: no rashes Nails: normal Neuro General: oriented to person, oriented to place and oriented to time Cranial nerves: Yes Equal, round and reactive pupils present and Yes Normal hearing present Speech: No Abnormal speech present Extrem General: Yes normal to inspection, No clubbing, No cyanosis and No edema Psych Appearance: grossly normal and well kempt Mental Status: mental status grossly normal Speech and movement: Normal speech and movement present Affect: normal affect Attitude: cooperative Thought process: Normal thought process present and not confabulating Thought content: Normal thought content present Insight: Limited insight present (Psych) Judgement: Limited judgement present (Psych) Assessment & Plan Assessment & Plan (1) Irritable bowel syndrome with diarrhea: Code(s): K58.0 - Irritable bowel syndrome with diarrhea (2) Erosive esophagitis: Code(s): K22.10 - Ulcer of esophagus without bleeding (3) GERD (gastroesophageal reflux disease): Code(s): K21.9 - Gastro-esophageal reflux disease without esophagitis Plan He is doing very well on the loperamide 3 times a day scheduled and is satisfied. This is controlling his diarrhea. He also continues on pantoprazole with good control of his GERD. He continues to be very satisfied with his GI regimen. Return office visit in 6 months. Medications: Refilled pantoprazole 40 mg PO DAILY 30 tabs 6RF K22.10 - Ulcer of esophagus without bleeding loperamide (Imodium A-D) d/c Viberzi 2 mg PO TID 90 caps 6RF loose stool K58.0 - Irritable bowel syndrome with diarrhea Coding Level of Care Code Est Pt Level 3 (75254) Diagnoses Irritable bowel syndrome with diarrhea K58.0 Erosive esophagitis K22.10 GERD (gastroesophageal reflux disease) K21.9
[2023-07-03 10:02] VITALS: BP 132/87; PULSE 59; BMI 31.8
== END 2023-07-03 11:07 | disposition home or self-care (01) ==
PROVIDERS: PCP Internal Medicine; Visit Provider Nurse Practitioner
DX: K58.0 Irritable bowel syndrome with diarrhea (principal); K22.10 Ulcer of esophagus without bleeding; K21.9 Gastro-esophageal reflux disease without esophagitis
CPT/HCPCS: 99213

== ENCOUNTER → 2023-07-03 09:43 | Outpatient (BNVA) | payer OTHER, MEDICARE, SELFPAY | PROVIDERS: PCP Internal Medicine; Visit Provider Nurse Practitioner ==

== ENCOUNTER 2023-08-26 14:10 | Emergency (ER) | payer OTHER, MEDICARE, SELFPAY | END 2023-08-26 17:05 | disposition left against medical advice (07) | PROVIDERS: Emergency Provider Emergency Medicine | DX: M79.606 Pain in leg, unspecified (principal) ==

== ENCOUNTER 2023-11-05 12:00 | Outpatient (AMB) | payer OTHER, MEDICARE, SELFPAY ==
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
[2023-11-05 12:10] VITALS: BP 112/84; PULSE 66; BMI 31.5
== END 2023-11-05 12:31 | disposition home or self-care (01) ==
PROVIDERS: PCP Internal Medicine; Visit Provider Nurse Practitioner
DX: K58.0 Irritable bowel syndrome with diarrhea (principal); K21.9 Gastro-esophageal reflux disease without esophagitis; K22.10 Ulcer of esophagus without bleeding
CPT/HCPCS: 99213

== ENCOUNTER → 2023-11-05 12:00 | Outpatient (BNVA) | payer OTHER, MEDICARE, SELFPAY | PROVIDERS: PCP Internal Medicine; Visit Provider Nurse Practitioner ==

== ENCOUNTER 2023-11-27 10:57 | Outpatient (AMB) | payer OTHER, MEDICARE, SELFPAY ==
[2023-11-27 11:04] VITALS: BP 138/72; PULSE 70; O2SAT 98; BMI 31.8
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
== END 2023-11-27 13:14 | disposition home or self-care (01) ==
PROVIDERS: PCP Internal Medicine; Visit Provider Internal Medicine
DX: I42.9 Cardiomyopathy, unspecified (principal); F33.9 Major depressive disorder, recurrent, unspecified; Z86.73 Personal history of transient ischemic attack (TIA), and cerebral infarction without residual deficits; K21.9 Gastro-esophageal reflux disease without esophagitis; E78.00 Pure hypercholesterolemia, unspecified; R76.0 Raised antibody titer; I10 Essential (primary) hypertension; N28.9 Disorder of kidney and ureter, unspecified; R73.01 Impaired fasting glucose; G47.00 Insomnia, unspecified
CPT/HCPCS: 99214

== ENCOUNTER 2024-01-01 11:46 | Outpatient (AMB) | payer OTHER, MEDICARE, SELFPAY ==
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
[2024-01-01 12:02] VITALS: BP 105/75; PULSE 72; BMI 31.2
== END 2024-01-01 15:44 | disposition home or self-care (01) ==
PROVIDERS: PCP Internal Medicine; Visit Provider Nurse Practitioner
DX: K21.9 Gastro-esophageal reflux disease without esophagitis (principal); K22.10 Ulcer of esophagus without bleeding; K58.0 Irritable bowel syndrome with diarrhea
CPT/HCPCS: 99213

== ENCOUNTER → 2024-01-01 11:46 | Outpatient (BNVA) | payer OTHER, MEDICARE, SELFPAY | PROVIDERS: PCP Internal Medicine; Visit Provider Nurse Practitioner ==

== ENCOUNTER → 2024-01-21 14:41 | Outpatient (RCR) | payer OTHER, MEDICARE, SELFPAY ==
--- NOTE | 2020-11-23 13:35 | P.CNHO_ITS ---
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 He underwent right suboccipital craniectomy and had a prolonged intensive care unit course. Hypercoagulable workup revealed positivity for lupus anticoagulant, although negative anticardiolipin antibody. Transthoracic echocardiogram was negative for any valvular vegetation more or thickening. He was recommended lifelong anticoagulation, but he stopped Coumadin on his own around 2010. He presented February 20, 2014, with a several day history of headache, dizziness and diplopia. CT scan revealed acute new infarct in the left hemisphere along with chronic changes in the right cerebellar region and left basal ganglia. Brain MRI revealed acute infarct throughout the PICA territory of the left cerebellum and dorsolateral left medulla. Hematology consultation was obtained and repeat hypercoagulable workup in February was negative for lupus anticoagulant, negative for anticardiolipin antibody, as well as beta-2 glycoprotein level. DEBI was negative. The patient, however, was recommended anticoagulation by neurology as well and he was started on low dose Lovenox and eventually switched to Coumadin. Lupus anticoagulant test repeated 08/2014 was again negative. HPI - Consult Narrative Reason for consult: Recurrent CVA Narrative: Ant Donaldson is a 50 year old male with history of recurrent CVA referred for thrombophilia evaluation. He has a history of strokes in 2007 and 2013. After 06/2013 he was on dual antiplatelet therapy as well as warfarin because of positivity for lupus anticoagulant in 2007. This time CVA was associated with hypertensive emergency and uncontrolled blood pressure was felt to be the cause of his CVA. He had stopped taking antihypertensives as well as anti-platelet therapy and warfarin for nearly a year. Patient reports poor compliance with medications in general. However, he is now on a baby aspirin as well as medications for hypertension and hypercholesterolemia. He denies any family history of thromboembolism. Review of Systems - Constitutional Reports as per HPI, Reports no additional constitutional complaints, Denies malaise, Denies night sweats - Cardiovascular Denies chest pain, Denies chest pain with activity - Respiratory Denies cough - Gastrointestinal Reports no additional gastrointestinal complaints PMFSH Medical History: Medical History (Last Updated 11/23/20 @ 13:44 by Belen Whitman) Anxiety and depression Cardiomyopathy GERD (gastroesophageal reflux disease) History of CVA (cerebrovascular accident) Hypercholesterolemia Hypertension Hypertensive emergency Insomnia Lupus anticoagulant positive Right renal stone Stroke Vitamin D deficiency Family History: Family History (Last Updated 11/23/20 @ 13:44 by Belen Whitman) Mother Cancer HTN (hypertension) Father Diabetes HTN (hypertension) Sister HTN (hypertension) Sister HTN (hypertension) Surgical History: Surgical History (Last Updated 11/23/20 @ 13:44 by Belen Whitman) Hx of appendectomy Hx of brain surgery Social History: Social History (Last Updated 11/23/20 @ 13:44 by Belen Whitman) Living Situation History: Housing: House Alcohol History: Alcohol intake: former Alcohol History Details: Alcohol intake frequency: does not drink Tobacco History: Patient Tobacco Use Status: Former Tobacco user Cigarettes Per Day: 2 Years Smoked: 1 Smoke Quit Date: 2006 Substance Use History: Use of substances other than those prescribed or required for medical reasons : No Occupation Assessmet: service: No Current occupational status: disabled Home Medications and Allergies Allergies Allergy/AdvReac Type Severity Reaction Status Date / Time Shellfish Allergy Mild HIVES Uncoded 02/02/20 14:57 seafood Allergy Unknown hives Uncoded 07/20/19 00:00 Physical Exam Narrative: Well-nourished male, speaking in full sentences, alert oriented x3 - Constitutional Present: no acute distress - Routine HEENT Exam Head: Present: normal inspection Eye: Present: EOMI, PERRL - Routine Neck Exam Absent: lymphadenopathy - Routine Respiratory Exam Present: CTAB - Routine Cardiovascular Exam Cardiovascular: Present: RRR, S1, S2 - Routine Skin Exam Absent: cyanosis, erythema - Routine Neurological Exam Present: alert, oriented X3 Assessment and Plan (1) History of CVA (cerebrovascular accident) Problem details: Left cerebellar stroke 2006 brain surgery 09/2020 recent stroke. Status: Acute This is a 50-year-old male with recurrent strokes. First CVA, cerebral are stroke in 2007, subsequently in 2013 and now in 2020. He has had an extensive workup with transthoracic as well as transesophageal echocardiogram and Dopplers of his carotids, which did not show any evidence of thrombus. In 2007, he was found to have a lupus anticoagulant, but there was no elevation of anticardiolipin antibodies. On repeat in February 2014, lupus anticoagulant tests negative. In August 2020 he presented with acute neurological deficits and was noted to have a blood pressure in the 200s over 100 range. As such he was admitted to the intensive care unit and treated as and hypertensive emergency. CTA of the head and CT head were negative for acute findings. As his blood pressure improved the majority of his symptoms with the exception of expressive aphasia resolved. He was evaluated by Neurology who recommended that controlling blood pressure was the mainstay of his treatment. An MRI was not recommended, as it was unlikely to changes management. The cause of his hypertensive emergency and acute stroke was related to noncompliance with his antihypertensive. He had complete thrombophilia workup in 2007 and subsequently in 2013. He was briefly positive for lupus anticoagulant test in 2007 but repeats testing x2 was negative. I have submitted lupus anticoagulant test once again, his recurrent CVA appears to be related to noncompliance with antihypertensives and antiplatelet therapy. This was discussed with the patient. He has realized this and agrees to be compliant with his medications. Results of above testing will be discussed with him on telephone. I thank you for this consultation.
[2020-11-23 13:36] VITALS: BP 141/101; PULSE 74; RESP 14; TEMP 36.4; O2SAT 94; BMI 28.8
--- NOTE | 2020-11-23 16:06 | MHC.HEMONCMA ---
Patient came in for a consult for raised antibodies- states that he is doing well. Clinical summary was reviewed and updated. Patient had labs and will have a telehealth in 2 weeks
[2020-11-26 13:12] LABS: PTT (LAC) Screen 28 sec (< OR = 40)
== END | disposition home or self-care (01) ==
LOC: HO.ONC 11-23 13:25
PROVIDERS: PCP Internal Medicine; Referring Provider Internal Medicine; Visit Provider Internal Medicine
DX: Z86.73 Personal history of transient ischemic attack (TIA), and cerebral infarction without residual deficits (principal); I10 Essential (primary) hypertension; Z79.82 Long term (current) use of aspirin; Z79.899 Other long term (current) drug therapy; Z91.14 Patient's other noncompliance with medication regimen
CPT/HCPCS: 36415; 85597; 85613; 85730

== ENCOUNTER 2024-04-28 11:09 | Outpatient (AMB) | payer OTHER, MEDICARE, SELFPAY ==
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
[2024-04-28 11:11] VITALS: BP 135/90; PULSE 56; BMI 32.6
--- OUTSIDE RECORDS SUMMARY | 2024-04-28 11:13 | XMS_ITS | Patient Health Record ---
Author Organization [facility] Address [address] [place] [address] Care Team Providers Care K [employer] Principal Name Role Phone KendrickCallie monroe Unavailable [phone] Reason For Referral No Information Encounters Encounter Location Date Provider Diagnosis [facility] [address] [place] [address] 11/27/2023 Callie Johnson Plan Of Treatment No Information Insurance Providers Payer Name Payer Address Payer Phone Subscriber Number Group Number Insured Name Patient Relationship to Insured Coverage Start Date Coverage End Date Medicare National [facility] [address] [place] [address] [id number] Ant Donaldson Self - patient is the insured [facility] [address] [place] [address] [phone] [id number] Ant Donaldson Self - patient is the insured
--- OUTSIDE RECORDS SUMMARY | 2024-04-28 11:13 | XMS_ITS ---
Author Organization [facility] Address [address] [place] [address] Care Team Providers Care Stock Selector Name Role Phone Callie Johnson Unavailable [phone] Encounters Encounter Location Date Provider Diagnosis [facility] [address] [place] [address] 12/01/2023 Callie Johnson Plan Of Treatment No Information Progress Notes * Ant DONALDSON ADOB:1970 (54 yo M)Acc No.[id number]:12/01/2023 Progress Notes Patient:?Ant DONALDSON Provider:?Callie Johnson DPM :1970???Age:53 Y???Sex:Male Javan e:12/01/2023 Address:[address] [place] [address] [id number] Subjective: * Chief Complaints: * ??? * Medical History:? Objective: * Vitals:? Assessment: Plan: * Treatment: * Images: * The named appointment provid er may or may not be the originator of this progress note, and it is not deemed complete until electronically signed by the appointment provider. Sign off status: Pending * Provider:?Callie Johnson DPM Date:? Generated for Cassie steele/Donny/Sharminitting on:?04/28/2024 11:12 AM EST
--- OUTSIDE RECORDS SUMMARY | 2024-04-28 11:13 | XMS_ITS ---
Author Organization [facility] Address [address] [place] [address] Care Team Providers Care Systems Support Specialist Name Role Phone Kendrickmabel Callie Unavailable [phone] REASON FOR VISIT Cancel Encounters Encounter Location Date Provider Diagnosis [facility] [address] [place] [address] 11/27/2023 Callie Johnson Plan Of Treatment No Information Progress Notes * Ant DONALDSON ADOB:1970 (53 yo M)Acc No.[id number]:11/27/2023 Patient:?Ant Donaldson :1970???Age:53 Y???Sex:Male [address] [facility] [place], [address] * true * Date:? Generated for Cassie steele/Donny/eTransmitting on:?04/28/2024 11:12 AM EST
== END 2024-04-28 11:52 | disposition home or self-care (01) ==
PROVIDERS: PCP Internal Medicine; Visit Provider Nurse Practitioner
DX: K58.0 Irritable bowel syndrome with diarrhea (principal); K21.9 Gastro-esophageal reflux disease without esophagitis; K22.10 Ulcer of esophagus without bleeding
CPT/HCPCS: 99213

== ENCOUNTER 2024-10-03 15:40 | Outpatient (AMB) | payer OTHER, MEDICARE, SELFPAY ==
--- OUTSIDE RECORDS SUMMARY | 2024-10-03 15:43 | XMS_ITS ---
Author Organization [facility] Address [address] [place] [address] Care Team Providers Care Stonemason Supervisor Name Role Phone Callie Johnson Unavailable [phone] Encounters Encounter Location Date Provider Diagnosis [facility] [address] [place] [address] 12/01/2023 Callie Johnson Plan Of Treatment No Information Progress Notes * Ant DONALDSON ADOB:1970 (54 yo M)Acc No.[id number]:12/01/2023 Progress Notes Patient:?Ant DONALDSON Provider:?Callie Johnson DPM :1970???Age:53 Y???Sex:Male Javan e:12/01/2023 Address:[address] [place] [address] [id number] Subjective: * Chief Complaints: * ??? * Medical History:? Objective: * Vitals:? Assessment: Plan: * Treatment: * Images: * The named appointment provid er may or may not be the originator of this progress note, and it is not deemed complete until electronically signed by the appointment provider. Sign off status: Pending * Provider:?Callie Johnson DPM Date:? Generated for Cassie steele/Donny/eTransmitting on:?10/03/2024 03:43 PM EDT
--- OUTSIDE RECORDS SUMMARY | 2024-10-03 15:43 | XMS_ITS | Patient Health Record ---
Author Organization [facility] Address [address] [place] [address] Care Team Providers Care Office Analyst Name Role Phone KendrickCallie monroe Unavailable [phone] Reason For Referral No Information Encounters Encounter Location Date Provider Diagnosis [facility] [address] [place] [address] 11/27/2023 Callie Johnson Plan Of Treatment No Information Insurance Providers Payer Name Payer Address Payer Phone Subscriber Number Group Number Insured Name Patient Relationship to Insured Coverage Start Date Coverage End Date Medicare National [facility] [address] [place] [address] [id number] 5 Ant Donaldson Self - patient is the insured [facility] [address] [place] [address] [id number] Ant Donaldson Self - patient is the insured
--- OUTSIDE RECORDS SUMMARY | 2024-10-03 15:44 | XMS_ITS ---
Author Organization [facility] Address [address] [place] [address] Care Team Providers Care Etch Operator [employer] Wafers Name Role Phone Kendrickmabel Callie Unavailable [phone] REASON FOR VISIT Cancel Encounters Encounter Location Date Provider Diagnosis [facility] [address] [place] [address] 11/27/2023 Callie Johnson Plan Of Treatment No Information Progress Notes * Ant DONALDSON ADOB:1970 (53 yo M)Acc No.[id number]:11/27/2023 Patient:?Ant Donaldson :1970???Age:53 Y???Sex:Male Address:[address] [facility] [place], [address] * true * Date:? Generated for Cassie steele/Donny/eTransmitting on:?10/03/2024 03:43 PM EDT
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
[2024-10-03 16:07] VITALS: BP 124/82; PULSE 106; O2SAT 95; BMI 31.4
== END 2024-10-03 16:55 | disposition home or self-care (01) ==
LOC: HO.HMCH 15:41
PROVIDERS: PCP Internal Medicine; Visit Provider Internal Medicine
DX: Z86.73 Personal history of transient ischemic attack (TIA), and cerebral infarction without residual deficits (principal); E78.00 Pure hypercholesterolemia, unspecified; K21.9 Gastro-esophageal reflux disease without esophagitis; R76.0 Raised antibody titer; I10 Essential (primary) hypertension; F33.9 Major depressive disorder, recurrent, unspecified

== ENCOUNTER → 2024-10-03 15:40 | Outpatient (BNVA) | payer OTHER, MEDICARE, SELFPAY | PROVIDERS: PCP Internal Medicine; Visit Provider Internal Medicine | DX: E78.00 Pure hypercholesterolemia, unspecified (principal); K21.9 Gastro-esophageal reflux disease without esophagitis; R76.0 Raised antibody titer; I10 Essential (primary) hypertension; F33.9 Major depressive disorder, recurrent, unspecified; Z86.73 Personal history of transient ischemic attack (TIA), and cerebral infarction without residual deficits; Z79.82 Long term (current) use of aspirin; Z79.899 Other long term (current) drug therapy | CPT/HCPCS: 96127 ==

== ENCOUNTER 2024-10-17 10:26 | Outpatient (REF) | payer OTHER, MEDICARE, SELFPAY ==
[2024-10-17 10:38] LABS: MANUAL DIFF FLAG NO
[2024-10-17 11:03] LABS: Basophils Absolute Auto 0.1 X10*3/uL (0.0-0.2); Basophils Percent Auto 0.6 % (0-2); Eosinophils Absolute Auto 0.1 X10*3/uL (0.0-0.4); Hematocrit 50.3 % (42.0-52.0); Hemoglobin 17.1 g/dl (14.0-18.0); Imm Gran Abs Auto 0.02 X10*3/uL (0.00-0.03); Imm Gran Pct Auto 0.2 % (0.0-0.4); Lymphocytes Absolute Auto 1.9 X10*3/uL (1.2-4.9); Lymphocytes Percent Auto 21.4 % (20-40); Mean Corpuscular Hemoglobin 31.1 pg (27.0-33.0); Mean Corpuscular Volume 91.5 fL (80.0-98.0); Mean Platelet Volume 9.1 fL (9.4-12.4); Monocytes Absolute Auto 0.5 X10*3/uL (0.1-1.2); Monocytes Percent Auto 5.2 % (2-11); Neutrophils Absolute Auto 6.3 x10*3/uL (2.0-8.3); Neutrophils Percent Auto 71.6 % (45-73); Platelet Count 319 X10*3/uL (160-400); Red Cell Distribution Width 12.9 % (11.0-16.0); White Blood Count 8.9 X10*3/uL (4.8-10.8)
--- OUTSIDE RECORDS SUMMARY | 2024-10-17 11:30 | XMS_ITS | Patient Health Record ---
Author Organization [facility] Address [address] [place] [address] Care Team Providers Care Hot Worker Name Role Phone KendrickCallie monroe Unavailable [phone] Reason For Referral No Information Encounters Encounter Location Date Provider Diagnosis [facility] [address] [place] [address] 11/27/2023 Callie Johnson Plan Of Treatment No Information Insurance Providers Payer Name Payer Address Payer Phone Subscriber Number Group Number Insured Name Patient Relationship to Insured Coverage Start Date Coverage End Date Medicare [facility] [address] [place] [address] [id number] 5 Ant Donaldson Self - patient is the insured [facility] [address] [place] [address] [id number] Ant Donaldson Self - patient is the insured
[2024-10-17 12:13] LABS: Alanine Aminotransferase 32 U/L (0-40); Albumin Level 4.5 g/dL (3.5-5.0); Alkaline Phosphatase 74 U/L (39-117); Anion Gap 12 (12-20); Aspartate Amino Transferase 25 U/L (5-37); Bilirubin Total 0.4 mg/dL (0.0-1.0); Blood Urea Nitrogen 22 mg/dL (9-16); Calcium 9.8 mg/dL (8.4-10.2); Carbon Dioxide 28 mmol/L (22-29); Chloride 108 mmol/L (96-108); Cholesterol 194 mg/dL (<200); Estimated Glomerular Filt Rate 54; Free T4 (Free Thyroxine) 1.16 ng/dL (0.71-1.85); Glucose Random 99 mg/dL (60-115); HDL Cholesterol 47 mg/dL (>40); LDL Cholesterol Calculated 125 mg/dL (<100); Potassium 4.1 mmol/L (3.3-5.1); Sodium 144 mmol/L (135-145); Thyroid Stimulating Hormone 1.34 uIU/mL (0.32-4.0); Total Protein 8.2 g/dL (6.5-8.0); Triglycerides 112 mg/dL (<150)
[2024-10-17 12:23] LABS: HBS Num1 26.16 mIU/mL (0-7.99); Hepatitis B Core Antibody Nonreactive (Nonreactive); ~HepC Num1 0.09 S/CO (0.00-0.79); ~Hepatitis B Surface Antibody REACTIVE (Nonreactive)
[2024-10-17 12:24] LABS: HBsAGNum1 0.24 S/CO (0.00-0.99); Hepatitis B Surface Antigen Negative (Negative); ~Hepatitis C Antibody Nonreactive (Nonreactive)
[2024-10-17 12:25] LABS: Folate 5.9 ng/mL (> or = 4.0); Prostate Specific Antigen Scr 4.62 ng/mL (<0.05-4.0); Vitamin B12 242 pg/mL (200-900)
== END 2024-10-17 10:27 | disposition home or self-care (01) ==
LOC: HO.LAB 10:26
PROVIDERS: PCP Internal Medicine; Visit Provider Internal Medicine
DX: E78.00 Pure hypercholesterolemia, unspecified (principal); R78.89 Finding of other specified substances, not normally found in blood
CPT/HCPCS: 36415; 80053; 80061; 82607; 82746; 84153; 84439; 84443; 85025; 86704; 86706; 86803; 87340

== ENCOUNTER 2024-10-25 11:05 | Outpatient (AMB) | payer OTHER, MEDICARE, SELFPAY ==
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
[2024-10-25 11:17] VITALS: BP 126/90; PULSE 90; O2SAT 96; BMI 30.9
--- OUTSIDE RECORDS SUMMARY | 2024-10-25 13:16 | XMS_ITS | Patient Health Record ---
Author Organization [facility] Address [address] [place] [address] Care Team Providers Care Engraver Pantograph Name Role Phone KendrickCallie monroe Unavailable [phone] Reason For Referral No Information Encounters Encounter Location Date Provider Diagnosis [facility] [address] [place] [address] 11/27/2023 Callie Johnson Plan Of Treatment No Information Insurance Providers Payer Name Payer Address Payer Phone Subscriber Number Group Number Insured Name Patient Relationship to Insured Coverage Start Date Coverage End Date Medicare [facility] [address] [place] [address] [id number] 5 Ant Donaldson Self - patient is the insured [facility] [address] [place] [address] [id number] Ant Donaldson Self - patient is the insured
== END 2024-10-25 11:42 | disposition home or self-care (01) ==
LOC: HO.HGI 11:06
PROVIDERS: PCP Internal Medicine; Visit Provider Nurse Practitioner
DX: K58.0 Irritable bowel syndrome with diarrhea (principal); K22.10 Ulcer of esophagus without bleeding; K21.9 Gastro-esophageal reflux disease without esophagitis
CPT/HCPCS: 99213

== ENCOUNTER 2024-11-21 11:05 | Outpatient (REF) | payer OTHER, MEDICARE, SELFPAY ==
--- OUTSIDE RECORDS SUMMARY | 2024-11-21 12:04 | XMS_ITS | Patient Health Record ---
Author Organization [facility] Address [address] [place] [address] Care Team Providers Care Mechanical Door Repairer Name Role Phone KendrickCallie monroe Unavailable [phone] Reason For Referral No Information Encounters Encounter Location Date Provider Diagnosis [facility] [address] [place] [address] 11/27/2023 Callie Johnson Plan Of Treatment No Information Insurance Providers Payer Name Payer Address Payer Phone Subscriber Number Group Number Insured Name Patient Relationship to Insured Coverage Start Date Coverage End Date Medicare National [facility] [address] [place] [address] [id number] Ant Donaldson Self - patient is the insured [facility] [address] [place] [address] [phone] [id number] Ant Donaldson Self - patient is the insured
[2024-11-21 12:55] LABS: PSA,Total (Free>4and<10) 3.73 ng/mL (0.00-4.00)
== END 2024-11-21 11:06 | disposition home or self-care (01) ==
LOC: HO.LAB 11:05
PROVIDERS: PCP Internal Medicine; Visit Provider Internal Medicine
DX: R97.20 Elevated prostate specific antigen [PSA] (principal); Z12.5 Encounter for screening for malignant neoplasm of prostate
CPT/HCPCS: 36415; 84153

== ENCOUNTER 2025-02-02 15:02 | Outpatient (AMB) | payer OTHER, MEDICARE, SELFPAY ==
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
[2025-02-02 15:06] VITALS: BP 140/94; PULSE 111; TEMP 36.3; O2SAT 97; BMI 31.8
== END 2025-02-02 16:08 | disposition home or self-care (01) ==
LOC: HO.HMCH 15:03
PROVIDERS: PCP Internal Medicine; Visit Provider Internal Medicine
DX: I10 Essential (primary) hypertension (principal); E78.00 Pure hypercholesterolemia, unspecified; I42.9 Cardiomyopathy, unspecified; R76.0 Raised antibody titer; R73.01 Impaired fasting glucose; K21.9 Gastro-esophageal reflux disease without esophagitis; R97.20 Elevated prostate specific antigen [PSA]; Z86.73 Personal history of transient ischemic attack (TIA), and cerebral infarction without residual deficits; F33.9 Major depressive disorder, recurrent, unspecified